=== PATIENT | male | born 1955 | race Caucasian/White ===

== ENCOUNTER 2019-12-31 16:26 | Observation (INO) | payer BC, OTHER ==
[2019-12-31] MEDS ORDERED: ASPIRIN 81 MG CHEWABLE TABLET ONE (17:14)
[2019-12-31] MEDS ORDERED: NA CHLORIDE 0.9% 1,000 ML ONE (17:15)
--- NOTE | 2019-12-31 17:21 | ER ---
Nurse's Notes [facility] Name: Theron Murrell Age: 64 yrs Sex: Male : 1955 Arrival Date: 12/31/2019 Time: 16:30 Bed 17 Private MD: Nikolai Shanks V Diagnosis: Chest pain, unspecified;Essential (primary) hypertension Presentation: 12/30 16:39 Chief complaint: Patient states: midsternal CP that started this morning, mild SOB as sv well. Denies n/v. Coronavirus screen: Proceed with normal triage. Patient denies a cough. Patient denies shortness of breath or difficulty breathing. Patient denies measured and/or subjective temperature greater than 100.4F prior to today's visit. Patient denies travel on a cruise ship or to a country the [facility] currently lists as an affected area. Patient denies contact with known and/or suspected case of COVID-19. Ebola Screen: No symptoms or risks identified at this time. Risk Assessment: Do you want to hurt yourself or someone else? Patient reports no desire to harm self or others. Onset of symptoms was December 31, 2019. 16:39 Method Of Arrival: Ambulatory sv 16:39 Acuity: EDOUARD 3 sv 16:40 Initial Sepsis Screen: Does the patient meet any 2 criteria? RR > 20 per min. No. sv Patient's initial sepsis screen is negative. Does the patient have a suspected source of infection? No. Patient's initial sepsis screen is negative. Triage Assessment: 17:07 General: Appears in no apparent distress. uncomfortable, obese, Behavior is bp cooperative, appropriate for age, anxious. Pain: Complains of pain in chest. EENT: No deficits noted. Neuro: No deficits noted. Cardiovascular: Reports chest pain. Respiratory: No deficits noted. GI: No signs and/or symptoms were reported involving the gastrointestinal system. : No signs and/or symptoms were reported regarding the genitourinary system. Derm: No deficits noted. Musculoskeletal: No deficits noted. Historical: - Allergies: 16:40 Sulfa (Sulfonamide Antibiotics); sv 16:40 Codeine; sv - PMHx: 16:40 Bronchitis; Gout; Hypothyroidism; Kidney stones; sv - PSHx: 16:40 kidney stones removed; sv - Immunization history:: Adult Immunizations up to date. - Social history:: Smoking status: Patient denies any tobacco usage or history of. - Family history:: not pertinent. Screenin:08 Abuse screen: Denies threats or abuse. Denies injuries from another. Nutritional bp screening: No deficits noted. Tuberculosis screening: No symptoms or risk factors identified. Fall Risk None identified. Assessment: 17:08 General: SEE TRIAGE NOTE. bp 18:00 Reassessment: ADMIT ON HOLD PENDING HOSPITALIST C/S. BED ASSIGNED. bp 18:39 Reassessment: PT CLEARED FOR ADMIT. REPORT TO SAJAN OWENS FOR RM 213. bp Vital Signs: 16:40 BP 140 / 93; Pulse 76; Resp 22; Temp 98.7; Pulse Ox 99% ; Weight 114.31 kg; Height 5 sv ft. 11 in. (180.34 cm); Pain 2/10; 18:06 BP 135 / 89; Pulse 69; Resp 18; Pulse Ox 96% ; bp 16:40 Body Mass Index 35.15 (114.31 kg, 180.34 cm) sv ED Course: 16:30 Patient arrived in ED. mr 16:30 Nikolai Shanks MD is Private Physician. mr 16:40 Triage completed. sv 16:40 Arm band placed on. sv 16:49 Juan Ha MD is Attending Physician. rea 16:54 Ray Francisco, GRACIELA is Primary Nurse. bp 17:08 Patient has correct armband on for positive identification. Bed in low position. Call bp light in reach. Side rails up X2. Pulse ox on. NIBP on. 17:17 Nikolai Shanks MD is Hospitalizing Provider. rea 17:25 Inserted saline lock: 20 gauge in right forearm, using aseptic technique. Blood bp collected. 18:14 No provider procedures requiring assistance completed. Patient admitted, IV remains in bp place. Patient maintains SpO2 saturation greater than 95% on room air. Administered Medications: 17:25 Drug: Aspirin Chewable Tablet 324 mg Route: PO; bp 18:39 Follow up: Response: No adverse reaction bp 17:25 Drug: NS 0.9% 1000 ml Route: IV; Rate: 1 bolus; Site: right forearm; bp 18:39 Follow up: IV Status: Completed infusion; IV Intake: 1000ml bp 17:30 Drug: Lopressor (metoprolol TARTRATE) 50 mg Route: PO; bp 18:38 Follow up: Response: No adverse reaction bp 17:30 Drug: Lovenox 100 mg Route: Sub-Q; Site: right lower abdomen; bp 18:38 Follow up: Response: No adverse reaction bp Intake: 18:39 IV: 1000ml; Total: 1000ml. bp Outcome: 17:20 Decision to Hospitalize by Provider. rea 18:14 Condition: stable bp 18:14 Instructed on the need for admit. 18:39 Admitted to Tele accompanied by tech, via stretcher, room 213, with chart, Report bp called to SAJAN OWENS 19:05 Patient left the ED. bp Signatures: Johana Royal, Juan Potter RN, MD MD cha Rivera, Mary mr Peltier, Brian, RN RN bp
--- NOTE | 2019-12-31 17:21 | EDPHYS ---
Physician Documentation [facility] Name: Theron Murrell Age: 64 yrs Sex: Male : 1955 Arrival Date: 12/31/2019 Time: 16:30 Bed 17 Private MD: Nikolai Shanks V ED Physician Juan Ha HPI: 12/30 17:15 This 64 yrs old Male presents to ER via Ambulatory with complaints of Chest rea Pain. 17:15 The patient or guardian reports chest pain that is located primarily in the substernal rea area. Onset: this morning. The pain does not radiate. Associated signs and symptoms: The patient has no apparent associated signs or symptoms. The chest pain is described as a heaviness, a pressure. Duration: The patient or guardian reports multiple episodes, that have now resolved. Modifying factors: The symptoms are alleviated by nothing. the symptoms are aggravated by nothing. Severity of pain: At its worst the pain was mild moderate in the emergency department the pain has improved markedly. The patient has experienced a previous episode, approximately 2 years ago. Historical: - Allergies: 16:40 Sulfa (Sulfonamide Antibiotics); sv 16:40 Codeine; sv - PMHx: 16:40 Bronchitis; Gout; Hypothyroidism; Kidney stones; sv - PSHx: 16:40 kidney stones removed; sv - Immunization history:: Adult Immunizations up to date. - Social history:: Smoking status: Patient denies any tobacco usage or history of. - Family history:: not pertinent. ROS: 17:15 Constitutional: Negative for fever, chills, and weight loss, Eyes: Negative for injury, rea pain, redness, and discharge, ENT: Negative for injury, pain, and discharge, Neck: Negative for injury, pain, and swelling, Respiratory: Negative for shortness of breath, cough, wheezing, and pleuritic chest pain, Abdomen/GI: Negative for abdominal pain, nausea, vomiting, diarrhea, and constipation, Back: Negative for injury and pain, : Negative for injury, bleeding, discharge, and swelling, MS/Extremity: Negative for injury and deformity, Skin: Negative for injury, rash, and discoloration, Neuro: Negative for headache, weakness, numbness, tingling, and seizure, Psych: Negative for depression, anxiety, suicide ideation, homicidal ideation, and hallucinations, Allergy/Immunology: Negative for hives, rash, and allergies, Endocrine: Negative for neck swelling, polydipsia, polyuria, polyphagia, and marked weight changes, Hematologic/Lymphatic: Negative for swollen nodes, abnormal bleeding, and unusual bruising. 17:15 Cardiovascular: Positive for chest pain, of the chest. Exam: 17:15 Constitutional: This is a well developed, well nourished patient who is awake, alert, rea and in no acute distress. Head/Face: Normocephalic, atraumatic. Eyes: Pupils equal round and reactive to light, extra-ocular motions intact. Lids and lashes normal. Conjunctiva and sclera are non-icteric and not injected. Cornea within normal limits. Periorbital areas with no swelling, redness, or edema. ENT: Nares patent. No nasal discharge, no septal abnormalities noted. Tympanic membranes are normal and external auditory canals are clear. Oropharynx with no redness, swelling, or masses, exudates, or evidence of obstruction, uvula midline. Mucous membranes moist. Neck: Trachea midline, no thyromegaly or masses palpated, and no cervical lymphadenopathy. Supple, full range of motion without nuchal rigidity, or vertebral point tenderness. No Meningismus. Chest/axilla: Normal chest wall appearance and motion. Nontender with no deformity. No lesions are appreciated. Cardiovascular: Regular rate and rhythm with a normal S1 and S2. No gallops, murmurs, or rubs. Normal PMI, no JVD. No pulse deficits. Respiratory: Lungs have equal breath sounds bilaterally, clear to auscultation and percussion. No rales, rhonchi or wheezes noted. No increased work of breathing, no retractions or nasal flaring. Abdomen/GI: Soft, non-tender, with normal bowel sounds. No distension or tympany. No guarding or rebound. No evidence of tenderness throughout. Back: No spinal tenderness. No costovertebral tenderness. Full range of motion. Male : Normal genitalia with no discharge or lesions. Skin: Warm, dry with normal turgor. Normal color with no rashes, no lesions, and no evidence of cellulitis. MS/ Extremity: Pulses equal, no cyanosis. Neurovascular intact. Full, normal range of motion. Neuro: Awake and alert, GCS 15, oriented to person, place, time, and situation. Cranial nerves II-XII grossly intact. Motor strength 5/5 in all extremities. Sensory grossly intact. Cerebellar exam normal. Normal gait. Psych: Awake, alert, with orientation to person, place and time. Behavior, mood, and affect are within normal limits. 17:36 ECG was reviewed by the Attending Physician. [facility] Vital Signs: 16:40 BP 140 / 93; Pulse 76; Resp 22; Temp 98.7; Pulse Ox 99% ; Weight 114.31 kg; Height 5 sv ft. 11 in. (180.34 cm); Pain 2/10; 18:06 BP 135 / 89; Pulse 69; Resp 18; Pulse Ox 96% ; bp 16:40 Body Mass Index 35.15 (114.31 kg, 180.34 cm) sv MDM: 16:49 Patient medically screened. [facility] 17:17 Data reviewed: vital signs, nurses notes, lab test result(s), EKG, radiologic studies, [facility] plain films. 12/30 16:50 Order name: Basic Metabolic Panel; Complete Time: 18:12 [facility] 12/30 16:50 Order name: CBC with Diff; Complete Time: 18:12 [facility] 12/30 16:50 Order name: LFT's; Complete Time: 18:12 [facility] 12/30 16:50 Order name: Magnesium; Complete Time: 18:12 [facility] 12/30 16:50 Order name: NT PRO-BNP; Complete Time: 18:12 [facility] 12/30 16:50 Order name: Troponin (emerg Dept Use Only); Complete Time: 18:12 [facility] 12/30 16:41 Order name: EKG; Complete Time: 16:42 12/30 16:50 Order name: XRAY Chest (1 view) [facility] 12/30 17:25 Order name: CONS Physician Consult [facility] 12/30 18:58 Order name: RAD [facility] 12/30 16:41 Order name: EKG - Nurse/Tech; Complete Time: 16:41 12/30 16:50 Order name: Cardiac monitoring; Complete Time: 17:24 [facility] 12/30 16:50 Order name: IV Saline Lock; Complete Time: 17:24 [facility] 12/30 16:50 Order name: Labs collected and sent; Complete Time: 17:24 [facility] 12/30 16:50 Order name: O2 Per Protocol; Complete Time: 17:06 [facility] 12/30 16:50 Order name: O2 Sat Monitoring; Complete Time: 17:06 [facility] EC:36 Rate is 75 beats/min. Rhythm is regular. QRS [place] is Normal. [place] interval is normal. QRS rea interval is normal. QT interval is normal. No Q waves. T waves are Normal. No ST changes noted. Clinical impression: Normal ECG and No evidence of ischemia. Interpreted by me. Reviewed by me. Administered Medications: 17:25 Drug: Aspirin Chewable Tablet 324 mg Route: PO; bp 18:39 Follow up: Response: No adverse reaction bp 17:25 Drug: NS 0.9% 1000 ml Route: IV; Rate: 1 bolus; Site: right forearm; bp 18:39 Follow up: IV Status: Completed infusion; IV Intake: 1000ml bp 17:30 Drug: Lopressor (metoprolol TARTRATE) 50 mg Route: PO; bp 18:38 Follow up: Response: No adverse reaction bp 17:30 Drug: Lovenox 100 mg Route: Sub-Q; Site: right lower abdomen; bp 18:38 Follow up: Response: No adverse reaction bp Disposition: 12/31/19 17:20 Hospitalization ordered by Nikolai Shanks for Observation. Preliminary diagnosis are Chest pain, unspecified, Essential (primary) hypertension. - Bed requested for Telemetry/MedSurg (observation). - Status is Observation. bp - Condition is Stable. - Problem is new. - Symptoms have improved. Signatures: Dispatcher [employer] EDMS Marcella Enriquez RN RN kl Verde, Stephanie, RN RN sv Anderson, Corey, MD MD cha Peltier, Brian, RN RN bp Corrections: (The following items were deleted from the chart) 17:52 17:20 Hospitalization Ordered by Nikolai Shanks MD for Observation. Preliminary diagnosis kl is Chest pain, unspecified; Essential (primary) hypertension. Bed requested for Telemetry/MedSurg (observation). Status is Observation. Condition is Stable. Problem is new. Symptoms have improved. [facility] 19:05 17:52 12/31/2019 17:20 Hospitalization Ordered by Nikolai Shanks MD for Observation. bp Preliminary diagnosis is Chest pain, unspecified; Essential (primary) hypertension. Bed requested for Telemetry/MedSurg (observation). Status is Observation. Condition is Stable. Problem is new. Symptoms have improved. kl
[2019-12-31 17:46] LABS: Absolute Lymphocytes (CBC) 2.6 K/uL (0.7-4.9); Basophils % 1.3 % (0-1.3); Hematocrit 45.2 % (39.6-49.0); Lymphocytes % 23.1 % (15.3-44.8); MPV 7.3 fL (7.6-11.3); RBC Red Blood Cell Count 5.34 M/uL (4.33-5.43)
[2019-12-31 18:04] LABS: ALT/SGPT 58 U/L (12-78); AST/SGOT 26 U/L (15-37); Albumin 3.5 g/dL (3.4-5.0); Alkaline Phosphatase 84 U/L (45-117); BUN Blood Urea Nitrogen 26 mg/dL (7-18); Bicarbonate 22 mmol/L (21-32); Bilirubin Direct 0.1 mg/dL (0-0.2); Bilirubin Total 0.4 mg/dL (0.2-1.0); Glucose Level 97 mg/dL (74-106); Magnesium 2.3 mg/dL (1.8-2.4); NT PRO-BNP 38 pg/mL (<125); Potassium 4.1 mmol/L (3.5-5.1); Sodium Level 141 mmol/L (136-145); Troponin (Emerg Dept Use Only) < 0.02 ng/mL (0.0-0.045)
[2019-12-31] MEDS ORDERED: ENOXAPARIN 100 MG/ML SYR SQ ONE (18:14)
[2019-12-31] MEDS ORDERED: METOPROLOL TAR 50 MG TAB ONE (18:14)
--- OUTSIDE RECORDS SUMMARY | 2019-12-31 18:19 | XMS REPORT | Continuity of Care Document ---
:1955 Author Organization [facility] t Address [address] [place] [address] Care Team Providers Name Role Phone Radiology Attending Clinician Unavailable Pob1, Care Clinic Attending Clinician Unavailable Problems This patient has no known problems. Allergies, Adverse Reactions, Alerts This patient has no known allergies or adverse reactions. Medications This patient has no known medications. Procedures This patient has no known procedures. Encounters Start End Encounter Admission Attending Care Care Encounter Source Date/Time Date/Time Type Type Clinicians Facility Department ID 2019-11-16 2019-11-16 [facility] [id number] 12:09:00 23:59:00 [facility] [id number] [facility] [id number] 2019-11-08 2019-11-08 Urgent Pob1, Acute [facility] [id number] 09:32:56 12:09:26 [place] [id number] [place] [id number] [facility] [phone] [address] One Results This patient has no known results.
--- OUTSIDE RECORDS SUMMARY | 2019-12-31 18:19 | XMS REPORT | Summary of Care ---
:1955 Author Organization [facility] Address [address] [place] [address] Care Team Providers Name Role Phone Dimitris Primary Care Provider Reason for Visit Reason Comments LAB WORK Encounter Details Date Type Department Care Team Description 11/08/2019 Trade Sales Assistant Visit [facility] Levi Law MD [address] [facility] [address] [place] [address] Encounter for long-term (current) use of antiplatelets/antithrombotics (Primary Dx); Professional Office Pob, Adc Lab Main Ureteral sludge Building Phlebotomy Lab Professional Office Building [address] [place] [address] , [address] [place] [address] Allergies Active Allergy Reactions Severity Noted Date Comments Hydrocodone Itching, Nausea 11/20/2013 When given H ydrocodone and/or Vomiting, in 03/14, david her's Swelling throat started feeling funny. Possible swelling and it demetrice. Sulfa (Sulfonamide Nausea and/or 11/20/2013 Antibiotics) Vomiting documented as of this encounter (statuses as of 11/08/2019) Medications Medication Sig Dispensed Refills Start Date End Date Status allopurinol (ZYLOPRIM) Take 100 mg by 0 10/13/2013 Active 100 mg tablet mouth daily. esomeprazole (NEXIUM) 40 TK 1 C PO ONCE A 1 01/17/20 16 Active mg capsule DAY. irbesartan 300 mg tablet Take 300 mg by 1 10/06/2018 Active mouth daily. levothyroxine 50 mcg Take 50 mcg by 0 10/06/2018 Active tablet mouth daily. traMADOL 50 mg tablet Take 1 tablet by 40 tablet 0 12/13/2018 Active mouth every 6 (six) hours as needed for Pain (scale 4-6) or Pain (scale 7-10). carvedilol 6.25 mg Take 6.25 mg by 0 Active tablet mouth 2 (two) times daily with meals. Pitavastatin (LIVALO) 2 Take by mouth 0 Active mg Tab daily. Levothyroxine 75 mcg TK 1 T PO QAM 1 12/06/2018 Active capsule OES Diclofenac Sodium Apply to 100 g 1 03/07/2019 A ctive (VOLTAREN) 1 % area(s) 4 (four) gelIndications: S/P TKR times daily. (total knee replacement), right documented as of this encounter (statuses as of 11/08/2019) Active Problems Problem Noted Date Essential hypertension 12/04/2018 Primary osteoarthritis of right knee 11/27/2018 Overview: Added automatically from request for erika marshall [id number] Obesity (BMI 30-39.9) 03/06/2018 Total knee replacement status 03/06/2018 Knee pain 11/03/2016 documented as of this encounter (statuses as of 11/08/2019) Immunizations Name Administration Dates Next Due Tdap 05/01/2018 documented as of this encounter Social History Tobacco Use Types Packs/Day Years Used Date Never Smoker Smokeless Tobacco: Never Used Alcohol Use Drinks/Week oz/Week Comments Yes Occasional Drink er Sex Assigned at Date Recorded Not on file Job Start Date Occupation Industry Not on file Not on file Not on file Travel History Travel Start Travel End No recent travel history available. COVID-19 Exposure Response Date Recorded In the last month, have you been in contact with No / Unsure 11/08/2019 9:01 AM CDT someone who was confirmed or suspected to have Coronavirus / COVID-19? documented as of this encounter Last Filed Vital Signs Not on filedocumented in this encounter Plan of Treatment Date Type Specialty Care Team Description 01/16/2020 Office Visit Cardiology Bárbara Sanchez M D [address] [place] [address] 77 [phone] Name Type Priority Associated Diagnoses Date/Ti me CBC WITH DIFF LAB Routine Encounter for long-term 11:20 AM (current) use of CDT antiplatelets/antithrom botics Ureteral sludge SEDIMENTATION RATE LAB Routine Encounter for long-ter m 11/08/2019 11:20 AM (current) use of CDT antiplatelets/antithrom botics Ureteral sludge BASIC METABOLIC PANEL (NA, LAB Routine Encounter for long-term 11/08/2019 11:20 AM K, CL, CO2, GLUCOSE, BUN, (current) use o f CDT CREATININE, CA) antiplatelets/antithrom botics Ureteral sludge C-REACTIVE PROTEIN LAB Routine Encounter for long-ter m 11/08/2019 11:20 AM (current) use of CDT antiplatelets/antithrom botics Ureteral sludge CBC WITH DIFFERENTIAL LAB Routine Encounter for long- term 11/08/2019 11:20 AM (current) use of CDT antiplatelets/antithrom botics Ureteral sludge Name Type Priority Associated Diagnoses Order S chedule CBC WITH DIFF LAB Routine Encounter for long-term Exp ected: 11/08/2019, (current) use of Expires: antiplatelets/antithrom botics Ureteral sludge SEDIMENTATION RATE LAB Routine Encounter for long-ter m Expected: 11/08/2019, (current) use of Expires: antiplatelets/antithrom botics Ureteral sludge BASIC METABOLIC PANEL (NA, LAB Routine Encounter for long-term Expected: 11/08/2019, K, CL, CO2, GLUCOSE, BUN, (current) use o f Expires: 11/07/2020 CREATININE, CA) antiplatelets/antithrom botics Ureteral sludge C-REACTIVE PROTEIN LAB Routine Encounter for long-ter m Expected: 11/08/2019, (current) use of Expires: antiplatelets/antithrom botics Ureteral sludge Health Maintenance Due Date Last Done Comments HEPATITIS C (HCV) SCREEN 1955 COLONOSCOPY 2004 Zoster Recombinant Vaccine (SHINGRIX) (1 of 2) 2004 Medicare Wellness Visit 2019 PNEUMOCOCCAL VACCINES 65+ (1 of 2 - PCV13) 2019 INFLUENZA VACCINE (Season Ended) 2020 DTaP,Tdap,and Td Vaccines (2 - Td) 05/01/2028 05/01/2018 documented as of this encounter Implants Implanted Type Area Airline Captain Device Shelf Model / Identifier Expiration Serial / Lot Date Bone Cement Injector 1x40 High Viscosity Pinky Ref#[id number] - Sna CEMENT Right: Biomet 06/26/2022 [id number] / Implanted: Qty: 1 on 12/04/2018 by Markel Cervantes MD at [facility] Knee N A / [id number] Primary Tibial Modular Tray KNEE Left: Biomet [id number] / Implanted: Qty: 1 on 03/06/2018 by Markel Cervantes MD at [facility] Knee 8 [id number] / [id number] Cr Tibial Bearing KNEE Left: [employer]omet 09/30/2022 E [id number] / Implanted: Qty: 1 on 03/06/2018 by Markel Cervantes MD at [facility] Knee 9 [id number] / [id number] Tibial Bearing 10 X 79/83 Mm Biomet Ref#[id number] - Sna KNEE Right : [employer]omet 02/17/2023 [id number] / Implanted: Qty: 1 on 12/04/2018 by Markel Cervantes MD at [facility] Knee N A / [id number] Primary Tibial Modular Tray KNEE Right: [employer]omet [id number] / Implanted: Qty: 1 on 12/04/2018 by Markel Cervantes MD at [facility] Knee N A / [id number] Cr Femoral - Right KNEE Right: [employer] 08/10/2028 [id number] / Implanted: Qty: 1 on 12/04/2018 by Markel Cervantes MD at [facility] Knee N A / [id number] Cr Femoral Left Knee Hinge Left: [employer] 10/17/2027 [id number] / Implanted: Qty: 1 on 03/06/2018 by Markel Cervantes MD at [facility] Knee 8 [id number] / [id number] Series A Standard Patella PATELLA Left: [employer] 09/26 [id number] / Implanted: Qty: 1 on 03/06/2018 by Markel Cervantes MD at [facility] Knee 2 [id number] / [id number] Component Patellar Pegx3 37mm Standard 10mm Thk [employer]omet Ref#[id number] - Sna PATELLA Right: [employer] 09/28/2022 [id number] / Implanted: Qty: 1 on 12/04/2018 by Markel Cervantes MD at [facility] Knee N A / [id number] Self-Tapping Bone Screw SCREW Left: Biomet 2027 [id number] / Implanted: Qty: 2 on 03/06/2018 by Markel Cervantes MD at [facility] Knee 9 [id number] / [id number] Self-Tapping Bone Screw SCREW Left: Biomet 2027 [id number] / Implanted: Qty: 1 on 03/06/2018 by Markel Cervantes MD at [facility] Knee 1 [id number] / [id number] Self-Tapping Bone Screw SCREW Left: Biomet 2027 [id number] / Implanted: Qty: 1 on 03/06/2018 by Markel Cervantes MD at [facility] Knee 2 [id number] / [id number] Screw Bone 6.5x30mm Lp St [employer] #[id number] - Sna SCREW Right: Bio met 09/04/2028 [id number] / Implanted: Qty: 2 on 12/04/2018 by Markel Cervantes MD at [facility] Knee N A / [id number] Screw Bone 6.5x40mm Lp St [employer] #[id number] - Sna SCREW Right: Bio met 08/05/2028 [id number] / Implanted: Qty: 1 on 12/04/2018 by Markel Cervantes MD at [facility] Knee N A / [id number] Screw Bone 6.5x40mm Lp St [employer] #[id number] - Sna SCREW Right: Bio met 10/02/2025 [id number] / Implanted: Qty: 1 on 12/04/2018 by Markel Cervantes MD at [facility] Knee N A / [id number] Modular Finned Stem Stem Left: [employer] 01/29/2028 [id number] / Implanted: Qty: 1 on 03/06/2018 by Markel Cervantes MD at [facility] Knee 1 [id number] / [id number] Stem Finned Primary 40mm [employer] #[id number] - Sna Stem Right: Biom et 10/03/2028 [id number] / Implanted: Qty: 1 on 12/04/2018 by Markel Cervantes MD at [facility] Knee N A / [id number] documented as of this encounter Results Not on filedocumented in this encounter Visit Diagnoses Diagnosis Encounter for long-term (current) use of antiplatelets/antithrombotics - Primary Ureteral sludge Unspecified disorder of kidney and urete r documented in this encounter Insurance Payer Benefit Plan / Subscriber ID Effective Dates Phone Addre ss Type Group [place] [id number] 2012-Present PPO/POS 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
--- OUTSIDE RECORDS SUMMARY | 2019-12-31 18:19 | XMS REPORT | Summary of Care ---
:1955 Author Organization [facility] Address [address] [place] [address] Care Team Providers Name Role Phone Dimitris Primary Care Provider Reason for Visit Reason Comments Nausea Body Aches Headache Fatigue Encounter Details Date Type Department Care Team Description 11/08/2019 Urgent Care [facility] Family Radiology [address] [place] [id number] Acute nonintractable headache, unspecifi ed headache type (Primary Dx); [place] [id number], Acute Care Clinic Bilateral impacted cerumen [address] [place] [phone] Allergies Active Allergy Reactions Severity Noted Date [...] 100 mg tablet mouth daily. esomeprazole (NEXIUM) TK 1 C PO ONCE 1 01/17/2016 Active 40 mg capsule A DAY. irbesartan 300 mg Take 300 mg by 1 10/06/2018 Active tablet mouth daily. levothyroxine 50 mcg Take 50 mcg by 0 10/06/2018 Active tablet mouth daily. traMADOL 50 mg tablet Take 1 tablet 40 tablet 0 12/13/2018 Active by mouth every 6 (six) hours as needed [...] A ctive (VOLTAREN) 1 % area(s) 4 gelIndications: S/P TKR (four) times (total knee daily. replacement), right carbamide peroxide 6.[address] 5 Drops 3 mL 0 11/08/2019 Active % otic in both ears 2 solutionIndications: (two) times Bilateral impacted daily for 5 cerumen days. documented as of this encounter (statuses as of 11/08/2019) Active Problems Problem Noted Date Essential hypertension 12/04/2018 Primary osteoarthritis of right knee 11/27/2018 Overview: Added automatically from request for erika marshall [id number] Obesity (BMI 30-39.9) 03/06/2018 Total knee replacement [...] of this encounter Last Filed Vital Signs Vital Sign Reading Time Taken Comments Blood Pressure 125/81 11/08/2019 9:43 AM CDT Pulse 76 11/08/2019 9:43 AM CDT Temperature 36.4 C (97.6 F) 11/08/2019 9:43 AM CDT Respiratory Rate 18 11/08/2019 9:43 AM CDT Oxygen Saturation 98% 11/08/2019 9:43 AM CDT Inhaled Oxygen Concentration - - Weight 114.8 kg (253 lb) 11/08/2019 9:43 AM CDT Height 180.3 cm (5' 11") 11/08/2019 9:43 AM CDT Body Mass Index 35.29 11/08/2019 9:43 AM CDT documented in this encounter Patient Instructions Patient InstructionsSarahMarisol andino [place] - 11/08/2019 9:40 AM CDT Patient Education Self-Care for Headaches Most headaches aren't serious and can be relieved with self-care. But some headaches may be a sign of another health problem like eye trouble or high blood pressure. To find the best treatment, learn what kind of headaches you get. For tension headaches, self-care will usually help. To treat migraines, ask yourhealthcare providerfor advice. It is also possible to get both tension and migraine headaches. Self-care involves relieving the pain and avoiding headache triggers if you can. Ways to reduce pain and tension Try these steps: Apply a cold compress or ice pack to the pain site. Drink fluids. If nausea makes it hard to drink, try sucking on ice. Rest. Protect yourself from bright light and loud noises. Calm your emotions by imagining a peaceful scene. Massage tight neck, shoulder, and head muscles. To relax muscles, soak in a hot bath or use a hot shower. Use medicines Aspirin or other yvaf-oqp-[id number] pain medicines, such as ibuprofen and acetaminophen, can relieve headache. Remember: Never give aspirin to anyone 18 years old or younger because of the risk of developing Adriana syndrome. Use pain medicines only when needed. Certain prescription medicines, if taken toooften, can lead to rebound headaches. Check with your healthcare provider or pharmacist about your medicines. Track your headaches Keeping a headache diary can help you and yourhealthcare provideridentify what's causing your headaches: Note when each headache happens. Identify your activities and the foods you've eaten6 to 8hours before the headache began. Look for any trends or "triggers." Signs of tension headache Any of the following can be signs: Dull pain or feeling of pressure in a tight band around your head Pain in your neck or shoulders Headache without a definite beginning or end Headache after an activity such as driving or working on a computer Signs of migraine Any of the following can be signs: Throbbing pain on one or both sides of your head Nausea or vomiting Extreme sensitivity to light, sound, and smells Bright spots, flashes, or other visual changes Pain or nausea so severe that you can't continue your daily activities Call yourhealthcare provider If you have any of the following symptoms, contact your healthcare provider: A headache that lingers after a recent injury or bump to the head. A fever with a stiff neck or pain when you bend your head toward your chest. A headache along with slurred speech, changes in your vision, or numbness or weakness in your arms or legs. A headache for longer than3 days. Frequent headaches,especially in the morning. Headaches with seizures Seek immediate medical attention if you have a headache that you would call "the worst headache you have ever had." Yuni newton reviewed this educational content on 08/25/201719996798-7531 The [employer]. [address] [place] [address]. All rights reserved. This information is not intended as a substitute for professional medical care. Always follow your healthcare professional's instructions. Patient Education Impacted Earwax Inner ear structures including ear canal and eardrum. Impacted earwax is a buildup of the natural wax in the ear. Impacted earwax is very common. It can cause symptoms such as hearing loss. It can also make it hard for a healthcare provider to check your ear. Understanding earwax Tiny glands in your ear make substances that combine with skin cells to form earwax. Earwax helps protect your ear canal from water, dirt, infection, and injury. Over time, earwax travels from theinner part of your ear canal to the entrance of the canal. Then it falls away naturally. But in somecases, it cant travel to the entrance of the canal. This may be because of a health condition or objects put in the ear. With age, earwax tends to become harder and less fluid. Older adults are morelikely to have problems with earwax buildup. What causes impacted earwax? Earwax can build up because of many health conditions. Some cause a physical blockage. Others cause too much earwax to be made. Health conditions that can cause earwax buildup include: Bony blockage in the ear (osteoma or exostoses) Infections, such as an outer ear infection (external otitis) Skin disease, such as eczema Autoimmune diseases, such as lupus A narrowed ear canal from , chronic inflammation, or injury Too much earwax because of injury Too much earwax because of water in the ear canal Putting objects in the ear again and again can also cause impacted earwax. For example, putting cotton swabs in the ear may push the wax deeper into the ear. Over time, this may cause blockage. Hearingaids, swimming plugs, and swim molds can also cause this problem when used again and again. In some cases, the cause of impacted earwax is not known. Symptoms of impacted earwax Excess earwax often does not cause any symptoms, unless there is a large amount of buildup. Then it may cause symptoms such as: Hearing loss Earache Sense of ear fullness Itching in the ear Odor from the ear Ear drainage Dizziness Ringing in the ears Cough Treatment for impacted earwax If you dont have symptoms, you may not need treatment. Often the earwax goes away on its own withtime. If you have symptoms, you may have 1 or more treatments such as: Ear drops to soften the earwax. This helps it leave the ear over time. Rinsing the ear canal with water. This is done in a healthcare providers office. Removing the earwax with small tools. This is also done in a providers office. In rare cases, some treatments for earwax removal may cause complications such as: Outer ear infection Earache Short-term hearing loss Dizziness Water trapped in the ear canal Hole in the eardrum Ringing in the ears Bleeding from the ear Talk with your healthcare provider about which risks apply most to you. Healthcare providers don't advise using ear candles or ear vacuum kits. These methods are not shown to work and may cause problems. Preventing impacted earwax You may not be able to prevent impacted earwax if you have a health condition that causes it, such as eczema. In other cases, you may be able to prevent earwax buildup by: Using ear drops once a week Having a regular ear cleaning about every 6 months Not using cotton swabs in the ear When to call the healthcare provider Call your healthcare provider right away if you have: Symptoms of impacted earwax Severe symptoms after earwax removal, such as bleeding or severe ear pain Yuni last reviewed this educational content on 02/25/201919992542-6127 [employer], [employer]. [address] [place] [address], [place] [address]. All rights reserved. This information is not intended as a substitute for professional medical care. Always follow your healthcare professional's instructions. documented in this encounter Progress Notes Marisol Lea FNP - 11/08/2019 9:40 AM CDT Cc: Chief Complaint Patient presents with Nausea Body Aches Headache Fatigue Hema Murrell is a 64 year old male. Last week he started having headaches, with some nausea and fatigue on an off. He has had an encounter with his PCP and an MRI is ordered for today at 11am. He has given some abortive medication and isonly here for covid test. Headache Pain location: Generalized Quality: Dull Radiates to: Does not radiate Severity currently: 4/10 Severity at highest: 5/10 Onset quality: Gradual Duration: 1 week Timing: Intermittent Progression: Unchanged Chronicity: Recurrent Similar to prior headaches: no Context: activity Relieved by: Nothing Worsened by: Nothing Ineffective treatments: Prescription medications Associated symptoms: fatigue, myalgias and nausea Associated symptoms: no cough, no fever and no weakness Fatigue: Severity: Moderate Timing: Intermittent Progression: Unchanged Myalgias: Location: Generalized Quality: Aching Severity: Mild Onset quality: Gradual Duration: 1 week Progression: Unchanged Nausea: Severity: Mild Onset quality: Gradual Timing: Intermittent Progression: Improving Risk factors: lifestyle not sedentary Allergies Hema is allergic to hydrocodone and sulfa (sulfonamide antibiotics). Medications Outpatient Medications Prior to Visit Medication Sig Dispense Refill Diclofenac Sodium (VOLTAREN) 1 % gel Apply to area(s) 4 (four) times daily. 100 g 1 Levothyroxine 75 mcg capsule TK 1 T PO QAM OES 1 carvedilol 6.25 mg tablet Take 6.25 mg by mouth 2 (two) times daily with meals. Pitavastatin (LIVALO) 2 mg Tab Take by mouth daily. traMADOL 50 mg tablet Take 1 tablet by mouth every 6 (six) hours as needed for Pain (scale 4-6) or Pain (scale 7-10). 40 tablet 0 irbesartan 300 mg tablet Take 300 mg by mouth daily. 1 levothyroxine 50 mcg tablet Take 50 mcg by mouth daily. esomeprazole (NEXIUM) 40 mg capsule TK 1 C PO ONCE A DAY. 1 allopurinol (ZYLOPRIM) 100 mg tablet Take 100 mg by mouth daily. No facility-administered medications prior to visit. Histories Past Medical History: Diagnosis Date Esophageal reflux Gout Nephrolithiasis Obesity MARTHA (obstructive sleep apnea) not compliant with cpap Thyroid disease Past Surgical History: Procedure Laterality Date HAND TENDON REPAIR Left REMOVAL OF KIDNEY STONE TOTAL KNEE ARTHROPLASTY Left 03/06/2018 Surgeon: Markel Henao MD; [place] [facility] [place] Right 12/04/2018 Surgeon: Markel Henao MD; [place] [facility] [place] Social History Socioeconomic History Marital status: Spouse name: Not on file Number of children: Not on file Years of education: Not on file Highest education level: Not on file Occupational History 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 [employer] Comment: geronimo jaime Social Needs Financial resource strain: Not on file Food insecurity: Worry: Not on file Inability: Not on file Transportation needs: Medical: Not on file Non-medical: Not on file Tobacco Use Smoking status: Never Smoker Smokeless tobacco: Never Used Substance and Sexual Activity Alcohol use: Yes Comment: Occasional Drinker Drug use: No Sexual activity: Not on file Lifestyle Physical activity: Days per week: Not on file Minutes per session: Not on file Stress: Not on file Relationships Social connections: Talks on phone: Not on file Gets together: Not on file Attends islam service: Not on file Active member of club or organization: Not on file Attends meetings of clubs or organizations: Not on file Relationship status: Not on file Intimate partner violence: Fear of current or ex partner: Not on file Emotionally abused: Not on file Physically abused: Not on file Forced sexual activity: Not on file Other Topics Concern Not on file Social History Narrative Not on file Family History Problem Relation Age of Onset Cancer Mother Cancer Father Review of Systems Constitutional: Positive for fatigue. Negative for chills and fever. Respiratory: Negative. Negative for cough, chest tightness, shortness of breath and wheezing. Cardiovascular: Negative. Negative for chest pain and palpitations. Gastrointestinal: Positive for nausea. Musculoskeletal: Positive for myalgias. Neurological: Positive for headaches. Negative for syncope, weakness and light-headedness. Psychiatric/Behavioral: Negative. Endocrine: Endocrine negative Vital Signs BP 125/81 (BP Location: Right arm, Patient Position: Sitting, BP CUFF SIZE: Adult XL) | Pulse 76 |Temp 36.4 C (97.6 F) (Oral) | Resp 18 | Ht 5' 11" (1.803 m) | Wt 253 lb (114.8 kg) | SpO2 98% | BMI 35.29 kg/m Physical Exam Constitutional: He is oriented to person, place, and time. He appears well- developed. No distress. HENT: Head: Normocephalic. Right Ear: Hearing and external ear normal. Left Ear: Hearing and external ear normal. Nose: Nose normal. Right sinus exhibits no maxillary sinus tenderness and no frontal sinus tenderness. Left sinus exhibits no maxillary sinus tenderness and no frontal sinus tenderness. Mouth/Throat: Uvula is midline, oropharynx is clear and moist and mucous membranes are normal. No tonsillar exudate. Bilateral cerumen impaction Cardiovascular: Normal rate, regular rhythm, normal heart sounds and intact distal pulses. Exam reveals no gallop and no friction rub. No murmur heard. Pulmonary/Chest: Effort normal and breath sounds normal. No stridor. No respiratory distress. He hasno wheezes. He has no rales. He exhibits no tenderness. Abdominal: Soft. Bowel sounds are normal. Lymphadenopathy: Head (right side): No submental, no submandibular, no tonsillar, no preauricular and no posterior auricular adenopathy present. Head (left side): No submental, no submandibular, no tonsillar, no preauricular and no posterior auricular adenopathy present. He has no cervical adenopathy. Neurological: He is alert and oriented to person, place, and time. He has normal strength. No cranial nerve deficit or sensory deficit. He displays a negative Romberg sign. Gait normal. Skin: Skin is warm and dry. Capillary refill takes less than 2 seconds. Psychiatric: He has a normal mood and affect. Nursing note and vitals reviewed. Assessment/Plan 1. Headaches: MRI as ordered. Continue abortive medication started with PCP and get the MRI as ordered. Follow up with PCP as scheduled. covid test done, pending result, In the meantime, quarantine in place, treat symptoms with OTC meds, Tylenol as needed but no NSAIDs. Stay in quarantine until symptoms subsides, plus 3 days afterwards or until you hear otherwise. Follow up with your PCP as needed, and if with worsening of symptoms, any respiratory distress, go to the ER. 2. Cerumen impaction: debrox given for a few days, follow up with ENT who he usually sees for tinnitus as needed. 3. Nausea: declined intervention, states it has resolved. Plan of care, desired health behaviors, goals, and medication discussed with patient. Education resources provided and reviewed with AVS. Patient/guardian/family verbalized understanding & agrees to plan of care. This visit did not involve counseling and coordination that comprised more than 50% of the visit time. If applicable, the [place] [employer] database was accessed to review any controlled substance prescription claims data. The [employer] prescription claims data in [employer] was reviewed to assess patient compliance with the medication treatment plan. Brianne Krause RN - 11/08/2019 9:40 AM CDT Hema Murrell is a 64 year old male presents the to Covid clinic with the CC Chief Complaint Patient presents with Nausea Body Aches Headache Fatigue The patient stated " I have had these symptoms for a little while, and that's why Im suppose to be getting a MRI". "I have a MRI today but they want me to have that testing done before they will let medo the MRI". documented in this encounter Plan of Treatment Date Type Specialty Care Team Description 11/08/2019 Hospital Encounter Radiology Radiology Arrived [address] [place] [address] 01/16/2020 Office Visit Cardiology Bárbara Sanchez M D [address] [facility] [address] [place] [address] 15 Name Type Priority Associated Diagnoses Date/Ti me CORONAVIRUS COVID-19 LAB STAT Acute nonintractable 11/08/2019 9:37 AM TESTING headache, unspecified CDT headache type Name Type Priority Associated Diagnoses Order S chedule CORONAVIRUS COVID-19 LAB STAT Acute nonintractable Expected: TESTING headache, unspecified 2019, Expires: headache type 11/07/2020 Health Maintenance Due Date Last Done Comments HEPATITIS C (HCV) SCREEN 1955 COLONOSCOPY 2004 Zoster Recombinant Vaccine (SHINGRIX) (1 of 2) 2004 Medicare Wellness Visit 2019 PNEUMOCOCCAL VACCINES 65+ (1 of 2 - PCV13) 2019 INFLUENZA VACCINE (Season Ended) 2020 DTaP,Tdap,and Td Vaccines (2 - Td) 05/01/2028 05/01/2018 documented as of this encounter Implants Implanted Type Area Director Of Litigation Device Shelf Model / Identifier Expiration Serial / Lot Date Bone Cement Injector 1x40 High Viscosity Pinky Ref#[id number] - Sna CEMENT Right: Biomet 06/26/2022 [id number] / Implanted: Qty: 1 on 12/04/2018 by Markel Cervantes MD at [facility] Knee N A / [id number] Primary Tibial Modular Tray KNEE Left: [employer] [id number] / Implanted: Qty: 1 on 03/06/2018 by Markel Cervantes MD at [facility] Knee 8 [id number] / [id number] Cr Tibial Bearing KNEE Left: [employer]omet 09/30/2022 E [id number] / Implanted: Qty: 1 on 03/06/2018 by Markel Cervantes MD at [facility] Knee 9 [id number] / [id number] Tibial Bearing 10 X 79/83 Mm Biomet Ref#[id number] - Sna KNEE Right : [employer] 02/17/2023 [id number] / Implanted: Qty: 1 on 12/04/2018 by Markel Cervantes MD at [facility] Knee N A / [id number] Primary Tibial Modular Tray KNEE Right: Biomet [id number] / Implanted: Qty: 1 on 12/04/2018 by Markel Cervantes MD at [facility] Knee N A / [id number] Femoral - Right KNEE Right: [employer] 08/10/2028 [id number] / Implanted: Qty: 1 on 12/04/2018 by Markel Cervantes MD at [facility] Knee N A / [id number] Femoral Left Knee Hinge Left: [employer]omet 10/17/2027 [id number] / Implanted: Qty: 1 on 03/06/2018 by Markel Cervantes MD at [facility] Knee 8 [id number] / [id number] Series A Standard Patella PATELLA Left: [employer] 09/26 [id number] / Implanted: Qty: 1 on 03/06/2018 by Markel Cervantes MD at [facility] Knee 2 [id number] / [id number] Component Patellar Pegx3 37mm Standard 10mm Thk Bi[employer] Ref#[id number] - Sna PATELLA Right: [employer] 09/28/2022 [id number] / Implanted: Qty: 1 on 12/04/2018 by Markel Cervantes MD at [facility] Knee N A / [id number] Self-Tapping Bone Screw SCREW Left: Biomet 2027 [id number] / Implanted: Qty: 2 on 03/06/2018 by Markel Cervantes MD at [facility] Knee 9 [id number] / [id number] Self-Tapping Bone Screw SCREW Left: Biomet 2027 [id number] / Implanted: Qty: 1 on 03/06/2018 by Markel Cervantes MD at [facility] Knee 1 [id number] / [id number] Self-Tapping Bone Screw SCREW Left: Biomet 2027 [id number] / Implanted: Qty: 1 on 03/06/2018 by Markel Cervantes MD at [facility] Knee 2 [id number] / [id number] Screw Bone 6.5x30mm Lp St [employer] #[id number] - Sna SCREW Right: Bio [employer] 09/04/2028 [id number] / Implanted: Qty: 2 on 12/04/2018 by Markel Cervantes MD at [facility] Knee N A / [id number] Screw Bone 6.5x40mm Lp St [employer] #[id number] - Sna SCREW Right: Bio [employer] 08/05/2028 [id number] / Implanted: Qty: 1 on 12/04/2018 by Markel Cervantes MD at [facility] Knee N A / [id number] Screw Bone 6.5x40mm Lp St [employer] #[id number] - Sna SCREW Right: Bio [employer] 10/02/2025 [id number] / Implanted: Qty: 1 on 12/04/2018 by Markel Cervantes MD at [facility] Knee N A / [id number] Modular Finned Stem Stem Left: [employer] 01/29/2028 [id number] / Implanted: Qty: 1 on 03/06/2018 by Markel Cervantes MD at [facility] Knee 1 [id number] / [id number] Stem Finned Primary 40mm Bi[employer] #[id number] - Sna Stem Right: Biom et 10/03/2028 [id number] / Implanted: Qty: 1 on 12/04/2018 by Markel Cervantes MD at [facility] Knee N A / [id number] documented as of this encounter Results Not on filedocumented in this encounter Visit Diagnoses Diagnosis Acute nonintractable headache, unspecifi ed headache type - Primary Bilateral impacted cerumen Impacted cerumen documented in this encounter Insurance Payer Benefit Plan / Subscriber ID Effective Dates Phone Addre ss Type Group [facility] [id number] 2012-Present PPO/POS 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
--- OUTSIDE RECORDS SUMMARY | 2019-12-31 18:19 | XMS REPORT | Summary of Care ---
:1955 Author Organization [facility] - Health Address [address] [place] [address] Care Team Providers Name Role Phone Dimitris Primary Care Provider Encounter Details Date Type Department Care Team Description 11/08/2019 Orders Only [facility] Doctor Unassigned, No [address] [facility] [place] [address] [address] [place] [phone] Allergies Active Allergy Reactions Severity Noted Date [...] Added automatically from request for erika marshall [id number] Obesity (BMI 30-39.9) 03/06/2018 Total knee replacement [...] been in contact with No / Unsure 11/06/2019 11:43 AM CDT someone who was confirmed or suspected to have Coronavirus / COVID-19? documented as of this encounter Last Filed Vital Signs Not on filedocumented in this encounter Plan of Treatment Date Type Specialty Care Team Description 11/08/2019 Director Corporate Security Visit Phlebotomy Levi Law MD [address] [place] [address] [address] [place], [place] [phone] [facility] Main 11/08/2019 Appointment Radiology Radiology [address] [place] [address] 01/16/2020 Office Visit Cardiology Bárbara Sanchez M D [address] [place] [address] [address] [place], [place] [address] Health Maintenance Due Date Last Done Comments HEPATITIS C (HCV) SCREEN 1955 COLONOSCOPY 2004 Zoster Recombinant Vaccine (SHINGRIX) (1 of 2) 2004 Medicare Wellness Visit 2019 PNEUMOCOCCAL VACCINES 65+ (1 of 2 - PCV13) 2019 INFLUENZA VACCINE (Season Ended) 2020 DTaP,Tdap,and Td Vaccines (2 - Td) 05/01/2028 05/01/2018 documented as of this encounter Implants Implanted Type Area Firearms Inspector Device Shelf Model / Identifier Expiration Serial / Lot Date Bone Cement Injector 1x40 High Viscosity Pinky Ref#[id number] - Sna CEMENT Right: Biomet 06/26/2022 [id number] / Implanted: Qty: 1 on 12/04/2018 by Markel Cervantes MD at [facility] Knee N A / [id number] Primary Tibial Modular Tray KNEE Left: Biomet [id number] / Implanted: Qty: 1 on 03/06/2018 by Markel Cervantes MD at [facility] Knee 8 [id number] / [id number] Cr Tibial Bearing KNEE Left: Biomet 09/30/2022 [id number] / Implanted: Qty: 1 on 03/06/2018 by Markel Cervantes MD at [facility] Knee 9 [id number] / [id number] Tibial Bearing 10 X 79/83 Mm Biomet Ref#[id number] - Sna KNEE Right : Biomet 02/17/2023 [id number] / Implanted: Qty: 1 on 12/04/2018 by Markel Cervantes MD at [facility] Knee N A / [id number] Primary Tibial Modular Tray KNEE Right: Biomet [id number] / Implanted: Qty: 1 on 12/04/2018 by Markel Cervantes MD at [facility] Knee N A / [id number] Cr Femoral - Right KNEE Right: Biomet 08/10/2028 [id number] / Implanted: Qty: 1 on 12/04/2018 by Markel Cervantes MD at [facility] Knee N A / [id number] Femoral Left Knee Hinge Left: Biomet 10/17/2027 18 [id number] / Implanted: Qty: 1 on 03/06/2018 by Markel Cervantes MD at [facility] Knee 8 [id number] / [id number] Series A Standard Patella PATELLA Left: Biomet 09/26 [id number] / Implanted: Qty: 1 on 03/06/2018 by Markel Cervantes MD at [facility] Knee 2 [id number] / [id number] Component Patellar Pegx3 37mm Standard 10mm Thk Biomet Ref#1 [id number] - Sna PATELLA Right: Biomet 09/28/2022 [id number] / Implanted: Qty: 1 on 12/04/2018 by Markel Cervantes MD at [facility] Knee N A / [id number] Self-Tapping Bone Screw SCREW Left: Biomet 2027 [id number] / Implanted: Qty: 2 on 03/06/2018 by Markel Cervantes MD at [facility] Knee 9 37590 / [id number] Self-Tapping Bone Screw SCREW Left: Biomet 2027 [id number] / Implanted: Qty: 1 on 03/06/2018 by Markel Cervantes MD at [facility] Knee 1 71712 / [id number] Self-Tapping Bone Screw SCREW Left: Biomet 2027 [id number] / Implanted: Qty: 1 on 03/06/2018 by Markel Cervantes MD at [facility] Knee 2 93981 / [id number] Screw Bone 6.5x30mm Lp St Biomet #[id number] - Sna SCREW Right: Bio met 09/04/2028 [id number] / Implanted: Qty: 2 on 12/04/2018 by Markel Cervantes MD at [facility] Knee N A / [id number] Screw Bone 6.5x40mm Lp St Biomet #[id number] - Sna SCREW Right: Bio met 08/05/2028 [id number] / Implanted: Qty: 1 on 12/04/2018 by Markel Cervantes MD at [facility] Knee N A / [id number] Screw Bone 6.5x40mm Lp St Biomet #[id number] - Sna SCREW Right: Bio met 10/02/2025 [id number] / Implanted: Qty: 1 on 12/04/2018 by Markel Cervantes MD at [facility] Knee N A / [id number] Modular Finned Stem Stem Left: Biomet 01/29/2028 [id number] / Implanted: Qty: 1 on 03/06/2018 by Markel Cervantes MD at [facility] Knee 1 [id number] / [id number] Stem Finned Primary 40mm Biomet #[id number] - Sna Stem Right: Biom et 10/03/2028 [id number] / Implanted: Qty: 1 on 12/04/2018 by Markel Cervantes MD at [facility] Knee N A / [id number] documented as of this encounter Procedures Procedure Name Priority Date/Time Associated Diagnosis Comme nts ASSIGNMENT OF BENEFITS Routine 11/08/2019 8:59 AM CDT documented in this encounter Results Not on filedocumented in this encounter Insurance Payer Benefit Plan / Subscriber ID Effective Dates Phone Addre ss Type Group [employer] - BCBS [facility] [id number] 2012-Present PPO/POS [facility] 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
--- OUTSIDE RECORDS SUMMARY | 2019-12-31 18:20 | XMS REPORT | Summary of Care ---
:1955 Author Organization [facility] Address [address] [place] [address] Care Team Providers Name Role Phone Dimitris Primary Care Provider Reason for Visit Reason Comments UPPER RESPIRATORY INFECTION results Encounter Details Date Type Department Care Team Description 11/09/2019 Telephone [facility] Family Pob1, Acute Care UPPER RESPIRATORY Medicine - [facility] INFECTION (results ) [facility] [place] [address] Allergies Active Allergy Reactions Severity Noted Date Comments Hydrocodone Itching, Nausea 11/20/2013 When given H ydrocodone and/or Vomiting, in 03/14, david her's Swelling throat started feeling funny. Possible swelling and it demetrice. Sulfa (Sulfonamide Nausea and/or 11/20/2013 Antibiotics) Vomiting documented as of this encounter (statuses as of 11/09/2019) Medications Medication Sig Dispensed Refills Start Date [...] as of this encounter (statuses as of 11/09/2019) Active Problems Problem Noted Date Essential hypertension 12/04/2018 Primary osteoarthritis of right knee 11/27/2018 Overview: Added automatically from request for erika marshall [id number] Obesity (BMI 30-39.9) 03/06/2018 Total knee replacement status 03/06/2018 Knee pain 11/03/2016 documented as of this encounter (statuses as of 11/09/2019) Immunizations Name Administration Dates Next Due Tdap [...] Treatment Date Type Specialty Care Team Description 11/16/2019 Appointment Radiology Radiology [address] [place] [address] [place] [address] 01/16/2020 Office Visit Cardiology Bárbara Sanchez M D [address] [facility] [address] [place] [address] Health Maintenance Due Date Last Done Comments HEPATITIS C (HCV) SCREEN 1955 COLONOSCOPY 2004 Zoster Recombinant Vaccine (SHINGRIX) (1 of 2) 2004 Medicare Wellness Visit 2019 PNEUMOCOCCAL VACCINES 65+ (1 of 2 - PCV13) 2019 INFLUENZA VACCINE (Season Ended) 2020 DTaP,Tdap,and Td Vaccines (2 - Td) 05/01/2028 05/01/2018 documented as of this encounter Implants Implanted Type Area Paint Stripper Device Shelf Model / Identifier Expiration Serial / Lot Date Bone Cement Injector 1x40 High Viscosity Pinky Ref#[id number] - Sna CEMENT Right: Biomet 06/26/2022 [id number] / Implanted: Qty: 1 on 12/04/2018 by Markel Cervantes MD at [facility] Knee N A / [id number] Primary Tibial Modular Tray KNEE Left: Biomet [id number] / Implanted: Qty: 1 on 03/06/2018 by Markel Cervantes MD at [facility] Knee 8 93041 / [id number] Cr Tibial Bearing KNEE Left: Biomet 09/30/2022 [id number] [id number] / Implanted: Qty: 1 on 03/06/2018 by Markel Cervantes MD at [facility] Knee 9 [id number] / [id number] Tibial Bearing 10 X 79/83 Mm Biomet Ref#[id number] - Sna KNEE Right : Biomet 02/17/2023 [id number] / Implanted: Qty: 1 on 12/04/2018 by Markel Cervantes MD at [facility] Knee N A / [id number] Primary Tibial Modular Tray KNEE Right: Biomet [id number] / Implanted: Qty: 1 on 12/04/2018 by Markel Cervantes MD at [facility] Knee N A / [id number] Cr Femoral - Right KNEE Right: Biomet 08/10/2028 [id number] / Implanted: Qty: 1 on 12/04/2018 by Markel Cervantes MD at [facility] Knee N A / [id number] Cr Femoral Left Knee Hinge Left: Biomet 10/17/2027 18 3072 / Implanted: Qty: 1 on 03/06/2018 by Markel Cervantes MD at [facility] Knee 8 [id number] / [id number] Series A Standard Patella PATELLA Left: Biomet 09/26 [id number] / Implanted: Qty: 1 on 03/06/2018 by Markel Cervantes MD at [facility] Knee 2 [id number] / [id number] Component Patellar Pegx3 37mm Standard 10mm Thk Biomet Ref#1 54353 - Sna PATELLA Right: Biomet 09/28/2022 [id number] / Implanted: Qty: 1 on 12/04/2018 by Markel Cervantes MD at [facility] Knee N A / [id number] Self-Tapping Bone Screw SCREW Left: Biomet 2027 031654 / Implanted: Qty: 2 on 03/06/2018 by Markel Cervantes MD at [facility] Knee 9 12882 / [id number] Self-Tapping Bone Screw SCREW Left: Biomet 2027 [id number] / Implanted: Qty: 1 on 03/06/2018 by Markel Cervantes MD at [facility] Knee 1 [id number] / [id number] Self-Tapping Bone Screw SCREW Left: Biomet 2027 [id number] / Implanted: Qty: 1 on 03/06/2018 by Markel Cervantes MD at [facility] Knee 2 [id number] / [id number] Screw Bone 6.5x30mm Lp St Biomet #[id number] - Sna SCREW Right: Bio met 09/04/2028 843535 / Implanted: Qty: 2 on 12/04/2018 by Markel Cervantes MD at [facility] Knee N A / [id number] Screw Bone 6.5x40mm Lp St Biomet #197664 - Sna SCREW Right: Bio met 08/05/2028 [id number] / Implanted: Qty: 1 on 12/04/2018 by Markel Cervantes MD at [facility] Knee N A / [id number] Screw Bone 6.5x40mm Lp St Biomet #982385 - Sna SCREW Right: Bio met 10/02/2025 [id number] / Implanted: Qty: 1 on 12/04/2018 by Markel Cervantes MD at [facility] Knee N A / [id number] Modular Finned Stem Stem Left: Biomet 01/29/2028 865039 / Implanted: Qty: 1 on 03/06/2018 by Markel Cervantes MD at [facility] Knee 1 36470 / [id number] Stem Finned Primary 40mm Biomet #691443 - Sna Stem Right: Biom et 10/03/2028 [id number] / Implanted: Qty: 1 on 12/04/2018 by Markel Cervantes MD at [facility] Knee N A / [id number] documented as of this encounter Results Not on filedocumented in this encounter Insurance Payer Benefit Plan / Subscriber ID Effective Dates Phone Addre ss Type Group [place] [id number] 2012-Present PPO/POS [employer] 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
--- OUTSIDE RECORDS SUMMARY | 2019-12-31 18:20 | XMS REPORT | Summary of Care ---
:1955 Author Organization [facility] Address [address] [place] [address] Care Team Providers Name Role Phone Dimitris Primary Care Provider Reason for Visit Reason Comments Nausea Body Aches Headache Fatigue Encounter Details Date Type Department Care Team Description 11/08/2019 Urgent Care [facility] Family Radiology [address] [place] [address] Acute nonintractable headache, unspecifi ed headache type (Primary Dx); [place] [address], Acute Care Clinic Bilateral impacted cerumen [address] [place] [phone] Allergies Active Allergy Reactions Severity Noted Date Comments Hydrocodone Itching, Nausea 11/20/2013 When given H ydrocodone and/or Vomiting, in 03/14, david her's Swelling throat started feeling funny. Possible swelling and it demetrice. Sulfa (Sulfonamide Nausea and/or 11/20/2013 Antibiotics) Vomiting documented as of this encounter (statuses as of 11/11/2019) Medications Medication Sig Dispensed Refills Start Date [...] as of this encounter (statuses as of 11/11/2019) Active Problems Problem Noted Date Essential hypertension 12/04/2018 Primary osteoarthritis of right knee 11/27/2018 Overview: Added automatically from request for erika marshall [id number] Obesity (BMI 30-39.9) 03/06/2018 Total knee replacement status 03/06/2018 Knee pain 11/03/2016 documented as of this encounter (statuses as of 11/11/2019) Immunizations Name Administration Dates Next Due Tdap [...] hot shower. Use medicines Aspirin or other slyo-xll-anwxpvp pain medicines, such as ibuprofen and acetaminophen, [...] Yuni newton reviewed this educational content on 08/25/201719992808-6044 [employer]. [address] [place] [address]. All rights reserved. This information is not [...] Yuni last reviewed this educational content on 02/25/201919990882-4742 [employer], [employer]. [address] [place] [address], [place] [address]. All rights reserved. 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 If applicable, the [place] [employer] database was accessed to review any controlled substance prescription claims data. The [place] prescription claims data in [employer] was reviewed to assess patient compliance with the medication treatment plan. Brianne Kruase RN - 11/08/2019 9:40 AM CDT Hema [...] Care Team Description 11/16/2019 Appointment Radiology Radiology [address] [place] [address] [place] [address] 01/16/2020 Office Visit Cardiology Bárbara Sanchez M D [address] [place] [address] Health Maintenance Due Date Last Done Comments HEPATITIS C (HCV) SCREEN 1955 COLONOSCOPY 2004 Zoster Recombinant Vaccine (SHINGRIX) (1 of 2) 2004 Medicare Wellness Visit 2019 PNEUMOCOCCAL VACCINES 65+ (1 of 2 - PCV13) 2019 INFLUENZA VACCINE (Season Ended) 2020 DTaP,Tdap,and Td Vaccines (2 - Td) 05/01/2028 05/01/2018 documented as of this encounter Implants Implanted Type Area Sourcer Device Shelf Model / Identifier Expiration Serial / Lot Date Bone Cement Injector 1x40 High Viscosity Pinky Ref#[id number] - Sna CEMENT Right: Biomet 06/26/2022 [id number] / Implanted: Qty: 1 on 12/04/2018 by Markel Cervantes MD at [facility] Knee N A / [id number] Primary Tibial Modular Tray KNEE Left: Biomet [id number] / Implanted: Qty: 1 on 03/06/2018 by Markel Cervantes MD at [facility] Knee 8 59265 / [id number] Cr Tibial Bearing KNEE Left: Biomet 09/30/2022 [id number] P-[id number] / Implanted: Qty: 1 on 03/06/2018 by Markel Cervantes MD at [facility] Knee 9 10366 / [id number] Tibial Bearing 10 X 79/83 Mm Biomet Ref#226155 - Sna KNEE Right : Biomet 02/17/2023 839126 / Implanted: Qty: 1 on 12/04/2018 by Markel Cervantes MD at [facility] Knee N A / [id number] Primary Tibial Modular Tray KNEE Right: Biomet [id number] / Implanted: Qty: 1 on 12/04/2018 by Markel Cervantes MD at [facility] Knee N A / [id number] Cr Femoral - Right KNEE Right: Biomet 08/10/2028 [id number] / Implanted: Qty: 1 on 12/04/2018 by Markel Cervantes MD at [facility] Knee N A / [id number] Cr Femoral Left Knee Hinge Left: Biomet 10/17/2027 18 3072 / Implanted: Qty: 1 on 03/06/2018 by Markel Cervantes MD at [facility] Knee 8 13542 / [id number] Series A Standard Patella PATELLA Left: Biomet 09/26 [id number] / Implanted: Qty: 1 on 03/06/2018 by Markel Cervantes MD at [facility] Knee 2 62433 / [id number] Component Patellar Pegx3 37mm Standard 10mm Thk Biomet Ref#1 22951 - Sna PATELLA Right: Biomet 09/28/2022 [id number] / Implanted: Qty: 1 on 12/04/2018 by Markel Cervantes MD at [facility] Knee N A / [id number] Self-Tapping Bone Screw SCREW Left: Biomet 2027 874834 / Implanted: Qty: 2 on 03/06/2018 by Markel Cervantes MD at [facility] Knee 9 48212 / [id number] Self-Tapping Bone Screw SCREW Left: Biomet 2027 452134 / Implanted: Qty: 1 on 03/06/2018 by Markel Cervantes MD at [facility] Knee 1 60770 / [id number] Self-Tapping Bone Screw SCREW Left: Biomet 2027 [id number] / Implanted: Qty: 1 on 03/06/2018 by Markel Cervantes MD at [facility] Knee 2 24188 / [id number] Screw Bone 6.5x30mm Lp St Biomet #557266 - Sna SCREW Right: Bio met 09/04/2028 032616 / Implanted: Qty: 2 on 12/04/2018 by Markel Cervantes MD at [facility] Knee N A / [id number] Screw Bone 6.5x40mm Lp St Biomet #835837 - Sna SCREW Right: Bio met 08/05/2028 343648 / Implanted: Qty: 1 on 12/04/2018 by Markel Cervantes MD at [facility] Knee N A / [id number] Screw Bone 6.5x40mm Lp St Biomet #234394 - Sna SCREW Right: Bio met 10/02/2025 062563 / Implanted: Qty: 1 on 12/04/2018 by Markel Cervantes MD at [facility] Knee N A / [id number] Modular Finned Stem Stem Left: Biomet 01/29/2028 372941 / Implanted: Qty: 1 on 03/06/2018 by Markel Cervantes MD at [facility] Knee 1 [id number] / [id number] Stem Finned Primary 40mm Biomet #941260 - Sna Stem Right: Biom et 10/03/2028 826139 / Implanted: Qty: 1 on 12/04/2018 by Markel Cervantes MD at [facility] Knee N A / [id number] documented as of this encounter Procedures Procedure Name Priority Date/Time Associated Diagnosis Comme nts CORONAVIRUS COVID-19 STAT 11/08/2019 9:37 Acute nonintract able Results for this TESTING AM CDT headache, unspecified proced ure are in headache type the results section. documented in this encounter Results CORONAVIRUS COVID-19 TESTING (11/08/2019 9:37 AM CDT) Pathologist Sig nature SARS-CoV-2 Not Detected Not Detected [facility] Specimen Swab - NASOPHARYNGEAL SWAB Narrative Performed At [facility] COVID-19 Assay is an isothermal nucleic [facility] acid amplification test intended for the qualitative detection of nucleic acid from SARS-CoV-2 viral RNA in nasopharyngeal (JOINERY MACHINIST) specimens. It is used under Emergency Use Authorization (EUA) by FDA. The limit of detection (LOD) of the assay is 125 Genome Equivalents/mL. A positive result is indicative of the presence of SARS-CoV-2 RNA. Clinical correlation with patient history and other diagnostic information is necessary to determine patient infection status. A negative (Not Detected) result does not preclude SARS-CoV-2 infection. Clinical correlation with patient history and other diagnostic information should be used in patient management decisions. Invalid: Please collect a new specimen for repeat patient testing if clinically indicated. Performing Organization Address City/State/Zipcode Phone Number [facility] CLIA: [id number], [address] [place], [place] [address] documented in this encounter Visit Diagnoses Diagnosis Acute nonintractable headache, unspecifi ed headache type - Primary Bilateral impacted cerumen Impacted cerumen documented in this encounter Insurance Payer Benefit Plan / Subscriber ID Effective Dates Phone Addre ss Type Group [place] [id number] 2012-Present PPO/POS [employer] [employer] 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
--- OUTSIDE RECORDS SUMMARY | 2019-12-31 18:20 | XMS REPORT | Summary of Care ---
:1955 Author Organization [facility] Address [address] [place] [address] Care Team Providers Name Role Phone Dimitris Primary Care Provider Reason for Referral MRI/CAT Scan (Routine) Status Reason Specialty Diagnoses / Referred By Referred To Procedures Contact Contact Authorized Diagnostic Diagnoses Nonintractable headache, unspecified chronicity pattern, unspecified headache type Nonintractable headache, unspecified chronicity pattern, unspecified headache type Nikolai Shanks V Radiology Procedures MR BRAIN W WO CONTRAST CHG MRI BRAIN COMBO MR BRAIN W WO CONTRAST [address] [place] [address] Reason for Visit MRI/CAT Scan (Routine) Status Reason Specialty Diagnoses / Referred By Referred To Procedures Contact Contact Authorized Diagnostic Diagnoses Nonintractable headache, unspecified chronicity pattern, unspecified headache type Nonintractable headache, unspecified chronicity pattern, unspecified headache type Nikolai Shanks V Radiology Procedures MR BRAIN W WO CONTRAST CHG MRI BRAIN COMBO MR BRAIN W WO CONTRAST [address] [place] [address] Encounter Details Date Type Department Care Team Description 11/08/2019 Hospital Encounter [facility] Radiology Canceled (PATIENT Fluker [address] [facility] ) [address] [place] [address] [place] [phone] Allergies Active Allergy Reactions Severity Noted Date [...] Added automatically from request for erika marshall [id number] Obesity (BMI 30-39.9) 03/06/2018 Total knee replacement [...] Visit Cardiology Bárbara Sanchez M D [address] [address] 15 [phone] Name Type Priority Associated Diagnoses Order S chedule MR BRAIN W WO IMAGING Routine Nonintractable headache, 1 Occurrences starting CONTRAST unspecified chronicity 11/07 until pattern, unspecified 020 headache type Health Maintenance Due Date Last Done Comments HEPATITIS C (HCV) SCREEN 1955 COLONOSCOPY 2004 Zoster Recombinant Vaccine (SHINGRIX) (1 of 2) 2004 Medicare Wellness Visit 2019 PNEUMOCOCCAL VACCINES 65+ (1 of 2 - PCV13) 2019 INFLUENZA VACCINE (Season Ended) 2020 DTaP,Tdap,and Td Vaccines (2 - Td) 05/01/2028 05/01/2018 documented as of this encounter Implants Implanted Type Area Court Administrator Device Shelf Model / Identifier Expiration Serial / Lot Date Bone Cement Injector 1x40 High Viscosity Pinky Ref#[id number] - Sna CEMENT Right: Biomet 06/26/2022 [id number] / Implanted: Qty: 1 on 12/04/2018 by Markel Cervantes MD at [facility] Knee N A / [id number] Primary Tibial Modular Tray KNEE Left: Biomet [id number] / Implanted: Qty: 1 on 03/06/2018 by Markel Cervantes MD at [facility] Knee 8 [id number] / [id number] Cr Tibial Bearing KNEE Left: Biomet 09/30/2022 [id number] / Implanted: Qty: 1 on 03/06/2018 by Markel Cervantes MD at [facility] Knee 9 [id number] / [id number] Tibial Bearing 10 X 79/83 Mm Biomet Ref#[id number] - Sna KNEE Right : Biomet 02/17/2023 [id number] / Implanted: Qty: 1 on 12/04/2018 by Markel Cervantes MD at [facility] Knee N A / [id number] Primary Tibial Modular Tray KNEE Right: Biomet [id number] / Implanted: Qty: 1 on 12/04/2018 by Markel Cervantes MD at [facility] Knee N A / [id number] Cr Femoral - Right KNEE Right: Biomet 08/10/2028 [id number] / Implanted: Qty: 1 on 12/04/2018 by Markel Cervantes MD at [facility] Knee N A / [id number] Cr Femoral Left Knee Hinge Left: Biomet 10/17/2027 18 [id number] / Implanted: Qty: 1 on 03/06/2018 by Markel Cervantes MD at [facility] Knee 8 [id number] / [id number] Series A Standard Patella PATELLA Left: Biomet 09/26 [id number] / Implanted: Qty: 1 on 03/06/2018 by Markel Cervantes MD at [facility] Knee 2 [id number] / [id number] Component Patellar Pegx3 37mm Standard 10mm Thk Biomet Ref#1 [id number] - Sna PATELLA Right: Biomet 09/28/2022 [id number] / Implanted: Qty: 1 on 12/04/2018 by Markel Cervantes MD at [facility] Knee N A / [id number] Self-Tapping Bone Screw SCREW Left: Biomet 2027 [id number] / Implanted: Qty: 2 on 03/06/2018 by Markel Cervantes MD at [facility] Knee 9 [id number] / [id number] Self-Tapping Bone Screw SCREW Left: Biomet 2027 [id number] / Implanted: Qty: 1 on 03/06/2018 by Markel Cervantes MD at [facility] Knee 1 [id number] / [id number] Self-Tapping Bone Screw SCREW Left: Biomet 2027 [id number] / Implanted: Qty: 1 on 03/06/2018 by Markel Cervantes MD at [facility] Knee 2 [id number] / [id number] Screw Bone 6.5x30mm Lp St Biomet #[id number] - Sna SCREW Right: Bio met 09/04/2028 [id number] / Implanted: Qty: 2 on 12/04/2018 by Markel Cervantes MD at [facility] Knee N A / [id number] Screw Bone 6.5x40mm Lp St Biomet #[id number] - Sna SCREW Right: Bio met 08/05/2028 [id number] / Implanted: Qty: 1 on 12/04/2018 by Markel Cervantes MD at [facility] Knee N A / [id number] Screw Bone 6.5x40mm Lp St Biomet #[id number] - Sna SCREW Right: Bio met 10/02/2025 [id number] / Implanted: Qty: 1 on 12/04/2018 by Markel Cervantes MD at [facility] Knee N A / [id number] Modular Finned Stem Stem Left: Biomet 01/29/2028 [id number] / Implanted: Qty: 1 on 03/06/2018 by Markel Cervantes MD at [facility] Knee 1 [id number] / [id number] Stem Finned Primary 40mm Biomet #[id number] - Sna Stem Right: Biom et 10/03/2028 [id number] / Implanted: Qty: 1 on 12/04/2018 by Markel Cervantes MD at [facility] Knee N A / [id number] documented as of this encounter Results Not on filedocumented in this encounter Visit Diagnoses Diagnosis Nonintractable headache, unspecified chr onicity pattern, unspecified headache type documented in this encounter Insurance Payer Benefit Plan / Subscriber ID Effective Dates Phone Addre ss Type Group [facility] [id number] 2012-Present PPO/POS [facility] [employer] [employer] [facility] [employer] 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
--- OUTSIDE RECORDS SUMMARY | 2019-12-31 18:21 | XMS REPORT | Summary of Care ---
:1955 Author Organization [facility] Address [address] [place] [address] Care Team Providers Name Role Phone Dimitris Primary Care Provider Reason for Visit MRI/CAT Scan (Routine) Status Reason Specialty Diagnoses / Referred By Referred To Procedures Contact Contact Closed Diagnostic Diagnoses Nonintractable headache, unspecified chronicity pattern, unspecified headache type Nonintractable headache, unspecified chronicity pattern, unspecified headache type Nikolai Shanks V Radiology Procedures MR BRAIN W WO CONTRAST CHG MRI BRAIN COMBO MR BRAIN W WO CONTRAST [address] [facility] [place] [address] Encounter Details Date Type Department Care Team Description 11/16/2019 Hospital Encounter [facility] Magnetic Radiolog y Arrived Resonance Imaging [address] [place] [address] [place] [address] [place] [phone] Allergies Active Allergy Reactions Severity Noted Date Comments Hydrocodone Itching, Nausea 11/20/2013 When given H ydrocodone and/or Vomiting, in 03/14, david her's Swelling throat started feeling funny. Possible swelling and it demetrice. Sulfa (Sulfonamide Nausea and/or 11/20/2013 Antibiotics) Vomiting documented as of this encounter (statuses as of 11/17/2019) Medications Medication Sig Dispensed Refills Start Date [...] as of this encounter (statuses as of 11/17/2019) Active Problems Problem Noted Date Essential hypertension 12/04/2018 Primary osteoarthritis of right knee 11/27/2018 Overview: Added automatically from request for erika joanna [id number] Obesity (BMI 30-39.9) 03/06/2018 Total knee replacement status 03/06/2018 Knee pain 11/03/2016 documented as of this encounter (statuses as of 11/17/2019) Immunizations Name Administration Dates Next Due Tdap [...] been in contact with No / Unsure 11/16/2019 12:08 PM CDT someone who was confirmed or suspected to have Coronavirus / COVID-19? documented as of this encounter Last Filed Vital Signs Not on filedocumented in this encounter Plan of Treatment Date Type Specialty Care Team Description 01/16/2020 Office Visit Cardiology Bárbara Sanchez M D [address] [place] [address] 15 [phone] Name Type Priority Associated Diagnoses Date/Ti me MR BRAIN W WO IMAGING Routine Nonintractable headache, 10:52 AM CONTRAST unspecified chronicity CDT pattern, unspecified headache type Health Maintenance Due Date Last Done Comments HEPATITIS C (HCV) SCREEN 1955 COLONOSCOPY 2004 Zoster Recombinant Vaccine (SHINGRIX) (1 of 2) 2004 Medicare Wellness Visit 2019 PNEUMOCOCCAL VACCINES 65+ (1 of 2 - PCV13) 2019 INFLUENZA VACCINE (Season Ended) 2020 DTaP,Tdap,and Td Vaccines (2 - Td) 05/01/2028 05/01/2018 documented as of this encounter Implants Implanted Type Area V Belt Curer Device Shelf Model / Identifier Expiration Serial / Lot Date Bone Cement Injector 1x40 High Viscosity Pinky Ref#[id number] - Sna CEMENT Right: Biomet 06/26/2022 [id number] / Implanted: Qty: 1 on 12/04/2018 by Markel Cervantes MD at [facility] Knee N A / [id number] Primary Tibial Modular Tray KNEE Left: Biomet [id number] / Implanted: Qty: 1 on 03/06/2018 by Markel Cervantes MD at [facility] Knee 8 [id number] / [id number] Cr Tibial Bearing KNEE Left: Biomet 09/30/2022 [id number] / Implanted: Qty: 1 on 03/06/2018 by Markel Cervantes MD at [facility] Knee 9 [id number] / [id number] Tibial Bearing 10 X 79/83 Mm Biomet Ref#[id number] - Sna KNEE Right : Biomet 02/17/2023 [id number] / Implanted: Qty: 1 on 12/04/2018 by Markel Cervantes MD at [facility] Knee N A / [id number] Primary Tibial Modular Tray KNEE Right: Biomet [id number] / Implanted: Qty: 1 on 12/04/2018 by Markel Cervantes MD at [facility] Knee N A / [id number] Cr Femoral - Right KNEE Right: Biomet 08/10/2028 [id number] / Implanted: Qty: 1 on 12/04/2018 by Markel Cervantes MD at [facility] Knee N A / [id number] Cr Femoral Left Knee Hinge Left: Biomet 10/17/2027 18 3072 / Implanted: Qty: 1 on 03/06/2018 by Markel Cervantes MD at [facility] Knee 8 [id number] / [id number] Series A Standard Patella PATELLA Left: Biomet 09/26 [id number] / Implanted: Qty: 1 on 03/06/2018 by Markel Cervantes MD at [facility] Knee 2 [id number] / [id number] Component Patellar Pegx3 37mm Standard 10mm Thk Biomet Ref#1 [id number] - Sna PATELLA Right: Biomet 09/28/2022 [id number] / Implanted: Qty: 1 on 12/04/2018 by Markel Cervantes MD at [facility] Knee N A / [id number] Self-Tapping Bone Screw SCREW Left: Biomet 2027 [id number] / Implanted: Qty: 2 on 03/06/2018 by Markel Cervantes MD at [facility] Knee 9 [id number] / [id number] Self-Tapping Bone Screw SCREW Left: Biomet 2027 [id number] / Implanted: Qty: 1 on 03/06/2018 by Markel Cervantes MD at [facility] Knee 1 [id number] / [id number] Self-Tapping Bone Screw SCREW Left: Biomet 2027 [id number] / Implanted: Qty: 1 on 03/06/2018 by Markel Cervantes MD at [facility] Knee 2 [id number] / [id number] Screw Bone 6.5x30mm Lp St Biomet #[id number] - Sna SCREW Right: Bio met 09/04/2028 [id number] / Implanted: Qty: 2 on 12/04/2018 by Markel Cervantes MD at [facility] Knee N A / [id number] Screw Bone 6.5x40mm Lp St Biomet #[id number] - Sna SCREW Right: Bio met 08/05/2028 [id number] / Implanted: Qty: 1 on 12/04/2018 by Markel Cervantes MD at [facility] Knee N A / [id number] Screw Bone 6.5x40mm Lp St Biomet #[id number] - Sna SCREW Right: Bio met 10/02/2025 [id number] / Implanted: Qty: 1 on 12/04/2018 by Markel Cervantes MD at [facility] Knee N A / [id number] Modular Finned Stem Stem Left: Biomet 01/29/2028 [id number] / Implanted: Qty: 1 on 03/06/2018 by Markel Cervantes MD at [facility] Knee 1 [id number] / [id number] Stem Finned Primary 40mm Biomet #[id number] - Sna Stem Right: Biom et 10/03/2028 [id number] / Implanted: Qty: 1 on 12/04/2018 by Markel Cervantes MD at [facility] Knee N A / [id number] documented as of this encounter Results Not on filedocumented in this encounter Insurance Payer Benefit Plan / Subscriber ID Effective Dates Phone Addre ss Type Group [facility] [id number] 2012-Present PPO/POS [employer] 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
--- NOTE | 2019-12-31 18:56 | RAD REPORT ---
EXAM DESCRIPTION: RAD - Chest Single View - 12/31/2019 6:37 pm CLINICAL HISTORY: CHEST PAIN COMPARISON: Portable August 2016 TECHNIQUE: AP portable chest image was obtained 12/31/2019 6:37 pm . FINDINGS: Lungs are clear. Heart and vasculature are normal. No measurable pleural effusion and no p neumothorax. No acute bony abnormality seen. No acute aortic findings suspected. IMPRESSION: No acute cardiopulmonary process. No significant change from comparison.
[2019-12-31] MEDS ORDERED: ONDANSETRON 4 MG/2 ML VIAL IV PRN (19:37)
[2019-12-31] MEDS ORDERED: ACETAMINOPHEN 325 MG TABLET PO PRN (19:42)
[2019-12-31 20:04] VITALS: BMI 36.0
[2019-12-31] MEDS: ENOXAPARIN 100 MG/ML SYR SQ SCH (20:46)
[2019-12-31] MEDS: FAMOTIDINE 20 MG/2 ML VIAL IV SCH (22:43)
[2020-01-01 05:22] LABS: RBC Red Blood Cell Count 5.04 M/uL (4.33-5.43)
[2020-01-01 05:23] LABS: Absolute Lymphocytes (CBC) 2.9 K/uL (0.7-4.9); Hematocrit 42.8 % (39.6-49.0); Lymphocytes % 32.7 % (15.3-44.8); MPV 7.2 fL (7.6-11.3)
[2020-01-01 05:38] LABS: Potassium 4.1 mmol/L (3.5-5.1)
[2020-01-01] MEDS ORDERED: carvediloL 3.125 MG TAB PO SCH (06:00)
[2020-01-01] MEDS ORDERED: ASPIRIN EC 81 MG TAB PO SCH (09:00)
[2020-01-01] MEDS: ENOXAPARIN 100 MG/ML SYR SQ SCH (09:00)
[2020-01-01] MEDS: FAMOTIDINE 20 MG/2 ML VIAL IV SCH (09:57)
--- NOTE | 2020-01-01 10:54 | EKG ---
Test Date: 2020-01-01 Test Time: 09:23:54 Direct Customer Service Representative: DEB MEASUREMENT RESULTS: Intervals: Rate: 66 MD: 162 QRSD: 88 QT: 378 QTc: 396 [place]: P: 57 MD: 162 QRS: -3 T: 3 INTERPRETIVE STATEMENTS: Normal sinus rhythm Normal ECG Compared to ECG 12/31/2019 16:36:53 Myocardial infarct finding no longer present Electronically Signed On 01-01-20 10:53:47 CDT by Luis Fernando Dumas
--- NOTE | 2020-01-01 10:56 | EKG ---
Test Date: 2019-12-31 Test Time: 16:36:53 Environmental Sustainability Manager: JUSTIN MEASUREMENT RESULTS: Intervals: Rate: 75 [place]: 152 QRSD: 82 QT: 356 QTc: 397 [place]: P: 47 WY: 152 QRS: -20 T: 14 INTERPRETIVE STATEMENTS: Normal sinus rhythm Cannot rule out Anterior infarct, age undetermined Abnormal ECG Compared to ECG 08/25/2016 12:12:23 Myocardial infarct finding now present Sinus bradycardia no longer present Electronically Signed On 01-01-20 10:54:02 CDT by Luis Fernando Dumas
--- NOTE | 2020-01-01 11:14 | ECHO ---
HEIGHT: 5 ft 11 in WEIGHT: 258 lb 3.2 oz DATE OF STUDY: 01/01/[address]: Juan Ha MD 2-DIMENSIONAL: YES M.MODE: YES DOPPLER: YES COLOR FLOW: YES TDS: NO PORTABLE: NO DEFINITY: NO BUBBLE STUDY: NO DIAGNOSIS: CHEST PAIN CARDIAC HISTORY: CATHERIZATION: NO SURGERY: NO PROSTHETIC VALVE: NO PACEMAKER: NO MEASUREMENTS (cm) DIASTOLIC (NORMALS) SYSTOLIC (NORMALS) IVSd 0.9 (0.6-1.2) LA Diam 3.9 (1.9-4.0) LVEF 70% LVIDd 4.0 (3.5-5.7) LVIDs 2.5 (2.0-3.5) %FS 39% LVPWd 1.0 (0.6-1.2) Ao Diam 3.0 (2.0-3.7) 2 DIMENSIONAL ASSESSMENT: RIGHT ATRIUM: NORMAL LEFT ATRIUM: NORMAL RIGHT VENTRICLE: NORMAL LEFT VENTRICLE: NORMAL TRICUSPID VALVE: NORMAL MITRAL VALVE: NORMAL PULMONIC VALVE: NORMAL AORTIC VALVE: NORMAL PERICARDIAL EFFUSION: NONE AORTIC ROOT: NORMAL LEFT VENTRICULAR WALL MOTION: NORMAL DOPPLER/COLOR FLOW: NORMAL COMMENTS: NORMAL 2D ECHOCARDIOGRAM WITH DOPPLER. NO WALL MOTION ABNORMALITY. NO EFFUSION. TECHNOLOGIST: Barbara BURGOS
[2020-01-01 12:15] VITALS: BP 158/82; TEMP 97.6
[2020-01-01 12:31] VITALS: O2SAT 96
--- NOTE | 2020-01-01 21:28 | P.SSS ---
Patient History Date of Service: 01/01/20 Reason for admission: CHEST PAIN History of Present Illness: MR DIAZ IS A NON SMOKER, NON DIABETIC , OBESE GM WHO HAS CHEST PAIN AND ARM PAIN THAT IS NOT EXERSIONAL. HE RULED OUT FOR AR. HE HAS NORMAL EKG. ECHO IS NORMAL. HE WILL GET STRESS TEST BY DR. GOMEZ. HE IS STABLE TO GO HOME. Allergies Sulfa (Sulfonamide Antibiotics) Allergy (Verified 12/31/19 20:05) Itching/Hives/Rash codeine Adverse Reaction (Mild, Verified 12/31/19 20:05) nausea Home Medications: Allopurinol 100 mg PO DAILY 01/01/20 Irbesartan 300 mg PO BEDTIME 01/01/20 Levothyroxine [Synthroid*] 0.075 mg PO DAILY 01/01/20 carvediloL [Coreg*] 6.25 mg PO BID 01/01/20 - Past Medical/Surgical History Has patient received pneumonia vaccine in the past: No Diabetic: No -: gout -: hypothyroidism -: kidney stones -: removal kidney stones with stent -: hand surgery - Family History Mother -: Cancer Brother -: Cancer Father -: Cancer - Social History Smoking Status: Never smoker Alcohol use: No CD- Drugs: No Caffeine use: Yes Place of Residence: Home Review of Systems 10-point ROS is otherwise unremarkable General: Weakness, Malaise Cardiovascular: Chest Pain Physical Examination - Vital Signs Temperature: 97.6 F Blood Pressure: 158/82 Pulse: 68 Respirations: 16 Pulse Ox (%): 96 - Physical Exam General: Alert, In no apparent distress HEENT: Atraumatic, PERRLA, Mucous membr. moist/pink, EOMI, Sclerae nonicteric Neck: Supple, 2+ carotid pulse no bruit, No LAD, Without JVD or thyroid abnormality Respiratory: Clear to auscultation bilaterally, Normal air movement Cardiovascular: Regular rate/rhythm, Normal S1 S2 Gastrointestinal: Normal bowel sounds, No tenderness Musculoskeletal: No tenderness Integumentary: No rashes Neurological: Normal gait, Normal speech, Normal strength at 5/5 x4 extr, Normal tone, Normal affect Lymphatics: No axilla or inguinal lymphadenopathy - Diagnosis (Problem(s)) (1) HTN (hypertension) Status: Chronic Qualifiers: Hypertension type: essential hypertension Qualified Code(s): I10 - Essential (primary) hypertension (2) Obesity (BMI 30-39.9) Status: Acute (3) Chest pain Onset Date: 08/26/16 Status: Acute Plan: ATYPICAL CH PAIN. NG CE ST TEST O. STABLE FOR DC. Qualifiers: Chest pain type: precordial pain Qualified Code(s): R07.2 - Precordial pain - Disposition Condition: GOOD Patient Discharge Instructions: FU WITH DR. GOMEZ FOR ST TEST.
--- NOTE | 2020-01-01 22:34 | CON ---
Date of Consultation: 01/01/2020 Reason For Consultation: Atypical chest pain. History Of Present Illness: Mr. Murrell is a 64-year-old male, has a history of gout, hypothyroidi sm and hypertension. He came in with chest pain that is midsternal without any radiation that has be en going on for about 4-6 hours. Despite the duration of the chest pain, he had a normal EKG, normal troponin. It seemed that his pain is sometimes positional. Was also having some headaches and dizz iness with it. Denies any nausea, vomiting, diaphoresis, PND, orthopnea, pedal edema, palpitations, or syncope. By the time I saw him, all his workup was negative. EKG was negative. Chest x-ray was negative. Echocardiogram was negative. He continues to have pain, mostly when he moves on his left side. Past Medical History: As stated above. Allergies: HE IS ALLERGIC TO SULFA AND CODEINE. Review of Systems: Negative. Social History: Negative. Family History: Negative. Medications: At home include Coreg, Synthroid, irbesartan, and allopurinol. Physical Examination: General: He weighed 258 pounds. Vital Signs: Stable, afebrile, no acute distress, sinus rhythm HEENT: Negative. Neck: Supple without any bruit, lymphadenopathy, JVD, or thyromegaly. Chest: Clear to auscultation and percussion. Cardiac: Revealed a regular rhythm and rate. No murmurs, gallops, or rubs. Abdomen: Benign. Extremities: Revealed no clubbing, cyanosis, or edema. Diagnostic Data: As stated earlier. Impression And Plan: Atypical chest pain in a 64-year-old with history of hypertension, obesity. He has ruled out for a myocardial infarction. His pain is atypical, but nevertheless he remains at hig h risk for possible coronary artery disease. His echo is normal. His EKG is normal. His troponin i s normal. I am comfortable with Mr. Murrell going home. I will make an arrangement for him to hav e an outpatient stress test in the near future. Continue his present regimen. AGGIE/MEHDIL Voice ID: [id number] Report ID: [id number]
== END 2020-01-01 14:28 | disposition home or self-care (01) ==
LOC: ER 16:26 → ERHOLD 17:22 → 2ND 18:39
PROVIDERS: ADMIT Internal Medicine; ATTEND Internal Medicine
DX: R07.89 Other chest pain (principal); R07.2 Precordial pain; I10 Essential (primary) hypertension; E66.9 Obesity, unspecified; Z68.35 Body mass index [BMI] 35.0-35.9, adult; Z11.59 Encounter for screening for other viral diseases; R94.31 Abnormal electrocardiogram [ECG] [EKG]; E03.9 Hypothyroidism, unspecified; M10.9 Gout, unspecified; Z79.899 Other long term (current) drug therapy
CPT/HCPCS: 93005 ×2; 93306; 85025 ×2; 80048 ×2; 36415 ×2; 83735; 80076; 84484 ×3; 83880; 71045; 96360; 96372; 99285; U0002; J1650; J7030; G0378 ×2

== ENCOUNTER 2021-01-25 19:23 | Emergency (ER) | payer BC, OTHER ==
--- OUTSIDE RECORDS SUMMARY | 2021-01-25 19:25 | XMS REPORT | Continuity of Care Document ---
:1955 Author Organization [facility] t Address [address] [place] [address] Care Team Providers Name Role Phone Mahesh MERCADO Attending Clinician Problems This patient has no known problems. Allergies, Adverse Reactions, Alerts This patient has no known allergies or adverse reactions. Medications This patient has no known medications. Procedures This patient has no known procedures. Encounters Start End Encounter Admission Attending Care Care Encounter Source Date/Time Date/Time Type Type Clinicians Facility Department ID 2020-09-01 2020-09-01 Office FREDERIC Aragon [id number] 14:22:50 16:37:07 Visit Patricia EDMONDS [id number] [facility] [id number] [facility] [id number] [facility] Results This patient has no known results.
--- NOTE | 2021-01-25 21:15 | RAD REPORT ---
EXAM DESCRIPTION: RAD - Chest Single View - 01/25/2021 9:09 pm CLINICAL HISTORY: COUGH Chest pain. COMPARISON: <Comparisons> FINDINGS: Portable technique limits examination quality. Mild prominence of the interstitial lung markings is seen which may indicate viral infection/bronchit is. The heart is normal in size. No displaced fractures.
[2021-01-25] MEDS ORDERED: ACETAMINOPHEN 500 MG TAB ONE (21:28)
[2021-01-25 21:34] LABS: Absolute Lymphocytes (CBC) 0.9 K/uL (0.7-4.9); Basophils % 1.5 % (0-1.3); Hematocrit 44.3 % (39.6-49.0); Lymphocytes % 24.4 % (15.3-44.8); MPV 7.1 fL (7.6-11.3); RBC Red Blood Cell Count 5.25 M/uL (4.33-5.43)
--- NOTE | 2021-01-25 22:47 | ER ---
Nurse's Notes [facility] Name: Theron Murrell Age: 65 yrs Sex: Male : 1955 Arrival Date: 01/25/2021 Time: 19:25 Bed 20 Private MD: Diagnosis: Positive Covid 19. Upper respiratory infection Presentation: 01/25 19:46 Chief complaint: Patient states: Headache, dry cough, and shortness of breath began vg1 Tuesday01/23/21. Pt states nausea, denies vomiting or diarrhea. States was exposed to Covid at work. Coronavirus screen: Client denies travel out of the [place] in the last 14 days. Client presents with at least one sign or symptom that may indicate coronavirus-19. Standard/surgical mask placed on the client. Ebola Screen: Patient negative for fever greater than or equal to 101.5 degrees Fahrenheit, and additional compatible Ebola Virus Disease symptoms. Initial Sepsis Screen: Does the patient meet any 2 criteria? No. Patient's initial sepsis screen is negative. Does the patient have a suspected source of infection? No. Patient's initial sepsis screen is negative. Risk Assessment: Do you want to hurt yourself or someone else? Patient reports no desire to harm self or others. Onset of symptoms was January 25, 2021. 19:46 Method Of Arrival: Ambulatory [facility] 19:46 Acuity: EDOUARD 4 vg1 Triage Assessment: 19:49 Headache History: The patient has had previous headaches and this one is similar to vg1 previous episodes. General: Appears in no apparent distress. Behavior is calm, cooperative. Pain: Denies pain. Neuro: Level of Consciousness is awake, alert, obeys commands, Oriented to person, place, time, situation. Respiratory: Airway is patent Respiratory effort is even, unlabored. 23:10 Pain: Pain currently is 0 out of 10 on a pain scale. Pain began gradually, Also ld1 complains of. Historical: - Allergies: 19:49 Codeine; vg1 19:49 Sulfa (Sulfonamide Antibiotics); vg1 - Home Meds: 19:49 Allopurinol Oral once daily [Active]; levothyroxine 50 mcg tab 1 tab once daily vg1 [Active]; carvedilol oral [Active]; - PMHx: 19:49 Bronchitis; Gout; Hypothyroidism; Kidney stones; Hypertensive disorder; vg1 - Immunization history:: Adult Immunizations up to date. - Social history:: Smoking status: Patient denies any tobacco usage or history of. Screenin:15 Abuse screen: Denies threats or abuse. Denies injuries from another. Nutritional ld1 screening: No deficits noted. Tuberculosis screening: No symptoms or risk factors identified. Fall Risk None identified. Assessment: 21:15 General: Appears in no apparent distress. comfortable, Behavior is calm, cooperative, ld1 appropriate for age. Pain: Denies pain. Neuro: Level of Consciousness is awake, alert, obeys commands, Oriented to person, place, time, situation. Cardiovascular: Capillary refill < 3 seconds Patient's skin is warm and dry. Respiratory: Airway is patent Respiratory effort is even, unlabored, Respiratory pattern is regular, symmetrical. Respiratory: Reports cough that is non-productive. GI: Abdomen is round non-distended. : No signs and/or symptoms were reported regarding the genitourinary system. EENT: No signs and/or symptoms were reported regarding the EENT system. Derm: No signs and/or symptoms reported regarding the dermatologic system. Musculoskeletal: No signs and/or symptoms reported regarding the musculoskeletal system. 22:09 Reassessment: Patient appears in no apparent distress at this time. Patient is alert, ld1 oriented x 3, equal unlabored respirations, skin warm/dry/pink. Patient denies pain at this time. Vital Signs: 19:46 BP 158 / 88; Pulse 81; Resp 20; Temp 99.7(O); Pulse Ox 98% ; Weight 112.04 kg; Height 5 1 ft. 11 in. (180.34 cm); Pain 0/10; 21:15 BP 152 / 80; Pulse 79; Resp 18; Pulse Ox 99% on R/A; ld1 22:09 BP 162 / 89; Pulse 85; Resp 18; Temp 99(O); Pulse Ox 97% on R/A; ld1 19:46 Body Mass Index 34.45 (112.04 kg, 180.34 cm) 1 ED Course: 19:25 Patient arrived in ED. 19:49 Triage completed. 1 19:49 Arm band placed on Patient placed Patient notified of wait time. EKG completed in 1 triage. Results shown to MD. 19:51 COVID swab sent to lab. Flu and/or RSV swab sent to lab. vg1 20:53 Elieser Logan MD is Attending Physician. pkl 20:55 Korin Murillo, RN is Primary Nurse. ld1 21:09 XRAY CXR (1 view) In Process Unspecified. EDMS 21:15 Patient has correct armband on for positive identification. Bed in low position. Call ld1 light in reach. Side rails up X2. Pulse ox on. NIBP on. Door closed. Noise minimized. Warm blanket given. 21:15 COVID-19 : Document "Date of Symptom Onset" if Symptomatic. Sent. ld1 21:15 Flu Sent. ld1 21:15 Strep Sent. ld1 21:15 Group A Streptococcus Rapid Sc Sent. ld1 21:15 No provider procedures requiring assistance completed. Inserted saline lock: 20 gauge ld1 in right antecubital area, using aseptic technique. Blood collected. 23:10 IV discontinued, intact, bleeding controlled, No redness/swelling at site. ld1 Administered Medications: 21:05 Drug: Tylenol 1000 mg Route: PO; ld1 21:15 Follow up: Response: No adverse reaction ld1 Outcome: 22:47 Discharge ordered by . pkl 23:03 Patient left the ED. mw2 23:10 Discharged to home ambulatory. ld1 23:10 Condition: stable 23:10 Discharge instructions given to patient, Instructed on discharge instructions, follow up and referral plans. Demonstrated understanding of instructions, follow-up care. Signatures: Dispatcher [employer] [facility] Elieser Logan MD MD pkl Mariat Jaimes mw2 April Rose RN RN vg1 Korin Murillo, GRACIELA RN ld1 Yina Hull Corrections: (The following items were deleted from the chart) 19:50 19:49 Home Meds: Aleve Oral; vg1 vg1 19:50 19:49 PMHx: Myocardial infarction; vg1 vg1
--- NOTE | 2021-01-25 22:47 | EDPHYS ---
Physician Documentation [facility] Name: Theron Murrell Age: 65 yrs Sex: Male : 1955 Arrival Date: 01/25/2021 Time: 19:25 Bed 20 Private MD: ED Physician Elieser Logan HPI: 01/25 21:01 This 65 yrs old Male presents to ER via Ambulatory with complaints of Cough, pkl Fever, Headache. 21:01 The patient or guardian reports cough, described as mild, with no sputum. Onset: The pkl symptoms/episode began/occurred 3 day(s) ago. Associated signs and symptoms: Pertinent positives: nausea, rhinorrhea, sore throat, headache. Patient exposed to Co-worker who was tested positive for Covid 19 6 days ago. Historical: - Allergies: 19:49 Codeine; vg1 19:49 Sulfa (Sulfonamide Antibiotics); vg1 - Home Meds: 19:49 Allopurinol Oral once daily [Active]; levothyroxine 50 mcg tab 1 tab once daily vg1 [Active]; carvedilol oral [Active]; - PMHx: 19:49 Bronchitis; Gout; Hypothyroidism; Kidney stones; Hypertensive disorder; vg1 - Immunization history:: Adult Immunizations up to date. - Social history:: Smoking status: Patient denies any tobacco usage or history of. ROS: 21:01 Eyes: Negative for injury, pain, redness, and discharge. pkl 21:01 ENT: Positive for nasal discharge, sore throat. 21:01 Neck: Negative for stiffness. 21:01 Cardiovascular: Negative for chest pain. 21:01 Respiratory: Positive for cough, with no reported sputum. 21:01 Abdomen/GI: Positive for nausea, Negative for abdominal pain, vomiting, diarrhea. 21:01 Back: Negative for acute changes. 21:01 : Negative for urinary symptoms. 21:01 MS/extremity: Negative for acute changes. 21:01 Skin: Negative for rash. 21:01 Neuro: Negative for altered mental status, loss of consciousness. Exam: 21:01 Head/Face: Normocephalic, atraumatic. Eyes: Pupils equal round and reactive to light, pkl extra-ocular motions intact. Lids and lashes normal. Conjunctiva and sclera are non-icteric and not injected. Cornea within normal limits. Periorbital areas with no swelling, redness, or edema. ENT: Nares patent. No nasal discharge, no septal abnormalities noted. Tympanic membranes are normal and external auditory canals are clear. Oropharynx with no redness, swelling, or masses, exudates, or evidence of obstruction, uvula midline. Mucous membranes moist. Neck: Trachea midline, no thyromegaly or masses palpated, and no cervical lymphadenopathy. Supple, full range of motion without nuchal rigidity, or vertebral point tenderness. No Meningismus. Chest/axilla: Normal chest wall appearance and motion. Nontender with no deformity. No lesions are appreciated. Cardiovascular: Regular rate and rhythm with a normal S1 and S2. No gallops, murmurs, or rubs. Normal PMI, no JVD. No pulse deficits. Respiratory: Lungs have equal breath sounds bilaterally, clear to auscultation and percussion. No rales, rhonchi or wheezes noted. No increased work of breathing, no retractions or nasal flaring. Abdomen/GI: Soft, non-tender, with normal bowel sounds. No distension or tympany. No guarding or rebound. No evidence of tenderness throughout. Back: No spinal tenderness. No costovertebral tenderness. Full range of motion. Skin: Warm, dry with normal turgor. Normal color with no rashes, no lesions, and no evidence of cellulitis. MS/ Extremity: Pulses equal, no cyanosis. Neurovascular intact. Full, normal range of motion. Neuro: Awake and alert, GCS 15, oriented to person, place, time, and situation. Cranial nerves II-XII grossly intact. Motor strength 5/5 in all extremities. Sensory grossly intact. Cerebellar exam normal. Normal gait. Vital Signs: 19:46 BP 158 / 88; Pulse 81; Resp 20; Temp 99.7(O); Pulse Ox 98% ; Weight 112.04 kg; Height 5 vg1 ft. 11 in. (180.34 cm); Pain 0/10; 21:15 BP 152 / 80; Pulse 79; Resp 18; Pulse Ox 99% on R/A; ld1 22:09 BP 162 / 89; Pulse 85; Resp 18; Temp 99(O); Pulse Ox 97% on R/A; ld1 19:46 Body Mass Index 34.45 (112.04 kg, 180.34 cm) vg1 MDM: 20:53 Patient medically screened. pkl 22:43 Data reviewed: vital signs, nurses notes, lab test result(s), EKG, radiologic studies, pkl plain films. ED course: Discussed lab and X' rays result with patient. To quarantine for 10 days. To return if unable to breath. Patient understood instructions. 01/25 19:33 Order name: COVID-19 : Document "Date of Symptom Onset" if Symptomatic. mw2 01/25 19:33 Order name: Flu mw2 01/25 19:34 Order name: Influenza Screen (A ; Complete Time: 22:28 EDMS 01/25 21:00 Order name: Strep pkl 01/25 21:00 Order name: CBC with Diff pkl 01/25 21:00 Order name: Chem 7; Complete Time: 22:28 pkl 01/25 21:00 Order name: XRAY CXR (1 view); Complete Time: 22:28 pkl 01/25 21:01 Order name: Group A Streptococcus Rapid Sc; Complete Time: 22:28 EDMS 01/25 21:01 Order name: CBC with Automated Diff; Complete Time: 07:37 EDMS 01/25 21:55 Order name: Throat Culture EDMS 01/25 22:40 Order name: SARS-COV-2 RT PCR; Complete Time: 22:43 EDMS 01/25 22:48 Order name: Manual Differential; Complete Time: 07:37 EDMS Administered Medications: 21:05 Drug: Tylenol 1000 mg Route: PO; ld1 21:15 Follow up: Response: No adverse reaction ld1 Disposition Summary: 01/25/21 22:47 Discharge Ordered Location: Home pkl Problem: new pkl Symptoms: are unchanged pkl Condition: Stable pkl Diagnosis - Positive Covid 19. Upper respiratory infection pkl Followup: pkl - With: Private Physician - When: 2 - 3 days - Reason: Re-evaluation by your physician Discharge Instructions: - Discharge Summary Sheet pkl Forms: - Work release form pkl - Medication Reconciliation Form pkl - Thank You Letter pkl - Antibiotic Education pkl - Prescription Opioid Use pkl Signatures: Dispatcher [employer] EDElieser Walton MD MD pkl April Rose RN RN vg1 Korin Murillo RN RN ld1 Corrections: (The following items were deleted from the chart) 19:50 19:49 Home Meds: Aleve Oral; vg1 vg1 19:50 19:49 PMHx: Myocardial infarction; vg1 vg1 21: 19:34 CORONAVIRUS ordered. EDMS EDMS 22:48 21:37 CBC Smear Scan ordered. EDMS EDMS
[2021-01-25 22:54] LABS: Blood Morphology Comment NOT SEEN (NOT SEEN); Platelet Estimate ADEQ
[2021-01-25 23:15] VITALS: BP 162/89; TEMP 99; O2SAT 97
== END 2021-01-25 23:03 | disposition home or self-care (01) ==
LOC: ER 19:23
DX: U07.1 COVID-19 (principal); J06.9 Acute upper respiratory infection, unspecified; M10.9 Gout, unspecified; E03.9 Hypothyroidism, unspecified; I10 Essential (primary) hypertension
CPT/HCPCS: 87070; 85025; 80048; 36415; 87081; 87804 ×2; 71045; U0003

== ENCOUNTER 2023-04-30 19:26 | Emergency (ER) | payer BC, OTHER ==
--- OUTSIDE RECORDS SUMMARY | 2023-04-30 19:32 | XMS REPORT | Continuity of Care Document ---
:1955 Author Organization [facility] t Address [address] [place] [address] [place] [id number] Care Team Providers Name Role Phone SANTOS GONZALEZ Primary Care Physician Unavailable ANGE RALPH Attending Clinician Unavailable SANTOS GONZALEZ Attending Clinician Unavailable HAI KAISER Attending Clinician Unavailable DEEPAK CHACON Attending Clinician Unavailable DEEPAK CHACON Attending Clinician Unavailable STEPHAN VALERIO Attending Clinician Unavailable STEPHAN VALERIO Attending Clinician Unavailable Santos Pimentel Attending Clinician CHARLES DUGGAN Attending Clinician Unavailable Lexie Bhatt RN Attending Clinician Unavailable HECTOR DIXON Attending Clinician Unavailable HECTOR DIXON Attending Clinician Unavailable Florinda Arroyo DO Attending Clinician Anesthesiology Attending Clinician Unavailable Lab, Ang - Db Attending Clinician Unavailable Doctor Unassigned, [place] Attending Clinician Unavailable CLAUDIA LI Attending Clinician Unavailable AVNI JAMES Attending Clinician Unavailable Avni James MD Attending Clinician AROLDO SANDERSON Attending Clinician Unavailable Nurse, Adc Pob Immunization Attending Clinician Unavailable Aroldo Sanderson DO Attending Clinician AMARJIT ALMAZAN Attending Clinician Unavailable Amarjit Almazan MD Attending Clinician Alina Smith RN Attending Clinician Zoë Oviedo RN Attending Clinician Unavailable Estuardo Mccabe Attending Clinician Marly Johnson MD Attending Clinician Bobby Jensen DO Attending Clinician MARLY JOHNSON Attending Clinician Unavailable Stephanie Medeiros LVN Attending Clinician Patricia Aragon MD Attending Clinician Roger Noble MD Attending Clinician ROGER NOBLE Attending Clinician Unavailable ZOYA ESCALONA Attending Clinician Unavailable Radiology Attending Clinician Unavailable RADIOLOGY Attending Clinician Unavailable Pob1, [facility] Attending Clinician Unavailable Pob, Adc Lab Main Attending Clinician Unavailable Levi Law MD Attending Clinician Clive AUTOMOBILE MECHANIC RADIATOR, Geovanny Diehl Attending Clinician Unavailable Héctor Soliman PT, Tere Attending Clinician Unavailable Ashley Duffy PTA Attending Clinician Unavailable HECTOR DIXON Admitting Clinician Unavailable Marly Johnson MD Admitting Clinician MARLY JOHNSON Admitting Clinician Unavailable Payers Payer Name Policy Type Policy Number Effective Date Expiration Date S [facility] [id number] 2012 EMPLOYEE PLAN 00:00:00 [facility] [id number] 2022 PPO 00:00:00 MEDICARE PART A [id number] 2019 \\T\\ B 00:00:00 Problems Condition Condition Condition Status Onset Resolution Last Treating Co mments Source Name Details Category Date Date Treatment Clinician Date Ischemic Ischemic Disease Active 2022-06 Unive rs stroke stroke 0-20 ity of 00:00: [address] Branch 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 00:00: [address] Branch Weakness Weakness Disease Active Unive rs 9- ity of 00:00: [place] [address] Medical Branch Acquired Acquired Disease Active Unive rs hypothyroi hypothyroi 9- it y of dism dism 00:00: [address] Branch Chronic Chronic Disease Active Univers gout gout 9- ity of without without 00:00: [place] tophus, tophus, 00 Medical unspecifie unspecifie Br anch d cause, d cause, unspecifie unspecifie d site d site Need for Need for Disease Active Unive rs vaccinatio vaccinatio 03-17 it y of n n 00:00: Medical Branch Bilateral Bilateral Disease Active Uni vers impacted impacted 03-17 ity of cerumen cerumen 00:00: Medical Branch Type 2 Type 2 Disease Active Univers diabetes diabetes 02-25 ity of mellitus mellitus 00:00: Medical Branch Essential Essential Disease Active Uni vers hypertensi hypertensi 6- it y of on on 00:00: Medical Branch Primary Primary Disease Active Overview: Univ ers osteoarthr osteoarthr 11-27 Formattin ity of itis of itis of 00:00: g of this [place] right knee right knee 00 note Me dical might be Branch different from the original. Added automatic ally from request for surgery [id number] Obesity Obesity Disease Active Univers (BMI (BMI 9-10 ity of 30-39.9) 30-39.9) 00:00: Medical Branch Total knee Total knee Disease Active U nivers replacemen replacemen - it y of t status t status 00:00: Medical Branch Knee pain Knee pain Disease Active Uni vers 5-10 ity of 00:00: Medical Branch Allergies, Adverse Reactions, Alerts Allergy Allergy Status Severity Reaction(s) Onset Inactive Treating Comm ents Source Name Type Date Date Clinician Sulfa Propensi Active Nausea Univers (Sulfona ty to and/or - ity of mide adverse Vomiting 00:00: [place] Antibiot reaction 00 Medica l ics) s Branch HYDROCOD DRUG Active ITCHING Univers ONE INGREDI 5-27 ity of 00:00: Medical Branch SULFA Drug Active N/V Univers (SULFONA Class 5-27 ity of MIDE 00:00: [place] ANTIBIOT 00 Medical ICS) Branch Hydrocod Propensi Active Swelling When Univ ers one ty to 5-27 given ity of adverse 00:00: Hydrocodo [place] reaction 00 ne in Medical s 9/18, Branch patient's throat started feeling funny. Possible swelling and itching. Social History Social Habit Start Date Stop Date Quantity Comments Source Sexual orientation Univer sity of [facility] History SDOH University o f Alcohol Frequency [facility] edical Branch History SDOH University o f Alcohol Std Drinks [facility] History SDUT University o f Alcohol Binge [place] Medic al Branch Alcohol intake 2023-04-15 2023-04-15 Current drinker Unive rsity of 00:00:00 00:00:00 of alcohol [facility] (finding) [place] Tobacco use and 2023-03-18 2023-03-18 Smokeless tobacco Un iversity of exposure 00:00:00 00:00:00 non-user [facility] Exposure to 2022-09-11 2022-09-21 Not sure University of SARS-CoV-2 (event) 00:00:00 08:30:00 [facility] History of Social 2022-09-19 2022-09-19 Univers ity of function 00:00:00 00:00:00 [facility] Alcohol Comment 2018-03-03 2018-03-03 Occasional Universit y of 00:00:00 00:00:00 drinker [facility] Sex [birth year] Universit y of 00:00:00 00:00:00 [facility] Smoking Status Start Date Stop Date Source Never smoked tobacco [facility] Medications Ordered Filled Start Stop Current Ordering Indication Dosage Frequency Signature Comments Components Source Medication Medication Date Date Medication? Clinician (SIG) Name Name allopurinoL 2022-06 Yes [id number] 100mg Take 1 Univers 100 mg 0-20 tablet by ity of tablet 00:00: mouth in [place] 00 the Medical morning. Branch carvediloL 2022-06 Yes [id number] 6.25mg Take 1 Univers 6.25 mg 0-20 tablet by ity of tablet 00:00: mouth in [place] 00 the Medical morning Branch and 1 tablet in the evening. Take with meals. levothyroxi 2022-06 Yes [id number] 75ug Take 1 Univers ne 75 mcg 0-20 tablet by ity o f tablet 00:00: mouth [place] 00 every Medical morning. Branch blood sugar 2022-06 Yes [id number] Use as Univers diagnostic 0-20 directed ity o f (ONETOUCH 00:00: 2/day. [place] ULTRA TEST) 00 E11.65 Medica l strip Branch lancets 2022-06 Yes [id number] Use as Uni vers (ONETOUCH 0-20 directed ity of DELICA PLUS 00:00: [place] LANCET) 33 00 Medical gauge [facility] Branch semaglutide 2022-06 Yes .25mg inject Univers (OZEMPIC) 0-20 0.25 mg ity of 0.25 mg or 00:00: under the [place] 0.5 mg (2 00 skin Medical mg/3 mL) weekly. Branch PnIj allopurinoL 2022-06 Yes [id number] 100mg Take 1 Univers 100 mg 0-20 tablet by ity of tablet 00:00: mouth in [place] 00 the Medical morning. Branch carvediloL 2022-06 Yes [id number] 6.25mg Take 1 Univers 6.25 mg 0-20 tablet by ity of tablet 00:00: mouth in [place] 00 the Medical morning Branch and 1 tablet in the evening. Take with meals. levothyroxi 2022-06 Yes [id number] 75ug Take 1 Univers ne 75 mcg 0-20 tablet by ity o f tablet 00:00: mouth [place] 00 every Medical morning. Branch blood sugar 2022-06 Yes [id number] Use as Univers diagnostic 0-20 directed ity o f (ONETOUCH 00:00: 2/day. [place] ULTRA TEST) 00 E11.65 Medica l strip Branch lancets 2022-06 Yes [id number] Use as Uni vers (ONETOUCH 0-20 directed ity of DELICA PLUS 00:00: [place] LANCET) 33 00 Medical [facility] Branch semaglutide 2022-06 Yes .25mg inject Univers (OZEMPIC) 0-20 0.25 mg ity of 0.25 mg or 00:00: under the [place] 0.5 mg (2 00 skin Medical mg/3 mL) weekly. Branch PnIj allopurinoL 2022-06 Yes [id number] 100mg Take 1 Univers 100 mg 0-20 tablet by ity of tablet 00:00: mouth in [place] 00 the Medical morning. Branch carvediloL 2022-06 Yes [id number] 6.25mg Take 1 Univers 6.25 mg 0-20 tablet by ity of tablet 00:00: mouth in [place] 00 the Medical morning Branch and 1 tablet in the evening. Take with meals. levothyroxi 2022-06 Yes [id number] 75ug Take 1 Univers ne 75 mcg 0-20 tablet by ity o f tablet 00:00: mouth [place] 00 every Medical morning. Branch blood sugar 2022-06 Yes [id number] Use as Univers diagnostic 0-20 directed ity o f (ONETOUCH 00:00: 2/day. [place] ULTRA TEST) 00 E11.65 Medica l strip Branch lancets 2022-06 Yes [id number] Use as Uni vers (ONETOUCH 0-20 directed ity of DELICA PLUS 00:00: [place] LANCET) 33 Medical gauge [facility] Branch semaglutide 2022-06 Yes [id number] .25mg inject Univers (OZEMPIC) 0-20 0.25 mg ity of 0.25 mg or 00:00: under the [place] 0.5 mg (2 00 skin Medical mg/3 mL) weekly. Branch PnIj allopurinoL 2022-06 Yes [id number] 100mg Take 1 Univers 100 mg 0-20 tablet by ity of tablet 00:00: mouth in [place] 00 the Medical morning. Branch carvediloL 2022-06 Yes [id number] 6.25mg Take 1 Univers 6.25 mg 0-20 tablet by ity of tablet 00:00: mouth in [place] the Medical morning Branch and 1 tablet in the evening. Take with meals. levothyroxi 2022-06 Yes [id number] 75ug Take 1 Univers ne 75 mcg 0-20 tablet by ity o f tablet 00:00: mouth [place] 00 every Medical morning. Branch blood sugar 2022-06 Yes [id number] Use as Univers diagnostic 0-20 directed ity o f (ONETOUCH 00:00: 2/day. [place] ULTRA TEST) 00 E11.65 Medica l strip Branch lancets 2022-06 Yes [id number] Use as Uni vers (ONETOUCH 0-20 directed ity of DELICA PLUS 00:00: [place] LANCET) 33 Medical gauge [facility] Branch allopurinoL 2022-06 Yes [id number] 100mg Take 1 Univers 100 mg 0-20 tablet by ity of tablet 00:00: mouth in [place] 00 the Medical morning. Branch carvediloL 2022-06 Yes [id number] 6.25mg Take 1 Univers 6.25 mg 0-20 tablet by ity of tablet 00:00: mouth in [place] 00 the Medical morning Branch and 1 tablet in the evening. Take with meals. levothyroxi 2022-06 Yes [id number] 75ug Take 1 Univers ne 75 mcg 0-20 tablet by ity o f tablet 00:00: mouth [place] 00 every Medical morning. Branch blood sugar 2022-06 Yes [id number] Use as Univers diagnostic 0-20 directed ity o f (ONETOUCH 00:00: 2/day. [place] ULTRA TEST) 00 E11.65 Medica l strip Branch lancets 2022-06 Yes [id number] Use as Uni vers (ONETOUCH 0-20 directed ity of DELICA PLUS 00:00: [place] LANCET) 33 00 Medical gauge Misc Branch semaglutide 2022-06 Yes [id number] .5mg inject 0.5 Univers (OZEMPIC) 0-20 mg under ity of 0.25 mg or 00:00: the skin [facility] as 0.5 mg (2 00 weekly. Medical mg/3 mL) Branch PnIj ezetimibe 2022-06 Yes [id number] 10mg Take 1 Un aubrie 10 mg 0-20 tablet by ity of tablet 00:00: mouth in [place] 00 the Medical morning. Branch semaglutide 2022-06- No [id number] .25mg inject Univers (OZEMPIC) 0-20 10-20 0.25 mg ity of 0.25 mg or 00:00: 00:00 under the [place] 0.5 mg (2 00 :00 skin Medical mg/3 mL) weekly. Branch PnIj aspirin 81 2022- Yes 81mg Take 1 Univers mg chewable 9-29 12-29 tablet by it y of tablet 00:00: 05:59 mouth in [place] 00 :00 the Medical morning Branch for 90 days. clopidogreL 2022- Yes 75mg Take 1 Univers 75 mg 9-29 12-29 tablet by ity of tablet 00:00: 05:59 mouth in [place] 00 :00 the Medical morning Branch for 90 days. losartan 50 2022- Yes [id number] 50mg Take 1 Univers mg tablet 9- 12- tablet by ity of 00:00: 05:59 mouth in [place] 00 :00 the Medical morning Branch for 90 days. pantoprazol 2022- Yes 40mg Take 1 Univers e 40 mg EC 9- 12- tablet by ity of tablet 00:00: 05:59 mouth in [place] 00 :00 the Medical morning Branch for 90 days. aspirin 81 2022- Yes [id number] 81mg Take 1 Univers mg chewable 9- 12-29 tablet by it y of tablet 00:00: 05:59 mouth in [place] 00 :00 the Medical morning Branch for 90 days. clopidogreL 2022- Yes [id number] 75mg Take 1 Univers 75 mg 9- 12- tablet by ity of tablet 00:00: 05:59 mouth in [place] 00 :00 the Medical morning Branch for 90 days. losartan 50 2022- Yes [id number] 50mg Take 1 Univers mg tablet 03-25- tablet by ity of 00:00: 05:59 mouth in [place] 00 :00 the Medical morning Branch for 90 days. pantoprazol 2022- Yes [id number] 40mg Take 1 Univers e 40 mg EC 03-25- tablet by ity of tablet 00:00: 05:59 mouth in [place] 00 :00 the Medical morning Branch for 90 days. aspirin 81 2022- Yes [id number] 81mg Take 1 Univers mg chewable -24 06- tablet by it y of tablet 00:00: 05:59 mouth in [place] 00 :00 the Medical morning Branch for 90 days. clopidogreL 2022- Yes [id number] 75mg Take 1 Univers 75 mg 9- 12-29 tablet by ity of tablet 00:00: 05:59 mouth in [place] 00 :00 the Medical morning Branch for 90 days. losartan 50 2022- Yes [id number] 50mg Take 1 Univers mg tablet 9- 12-29 tablet by ity of 00:00: 05:59 mouth in [place] 00 :00 the Medical morning Branch for 90 days. pantoprazol 2022- Yes [id number] 40mg Take 1 Univers e 40 mg EC 9- 12-29 tablet by ity of tablet 00:00: 05:59 mouth in [place] 00 :00 the Medical morning Branch for 90 days. aspirin 81 2022- Yes [id number] 81mg Take 1 Univers mg chewable 9- 12- tablet by it y of tablet 00:00: 05:59 mouth in [place] 00 :00 the Medical morning Branch for 90 days. clopidogreL 2022- Yes [id number] 75mg Take 1 Univers 75 mg 9- 12-29 tablet by ity of tablet 00:00: 05:59 mouth in [place] 00 :00 the Medical morning Branch for 90 days. losartan 50 2022- Yes [id number] 50mg Take 1 Univers mg tablet 03-25- tablet by ity of 00:00: 05:59 mouth in [place] 00 :00 the Medical morning Branch for 90 days. pantoprazol 2022- Yes [id number] 40mg Take 1 Univers e 40 mg EC 03-25- tablet by ity of tablet 00:00: 05:59 mouth in [place] 00 :00 the Medical morning Branch for 90 days. aspirin 81 2022- Yes 81mg Take 1 Univers mg chewable -24 06- tablet by it y of tablet 00:00: 05:59 mouth in [place] 00 :00 the Medical morning Branch for 90 days. clopidogreL 2022- Yes [id number] 75mg Take 1 Univers 75 mg 9- 12-29 tablet by ity of tablet 00:00: 05:59 mouth in [place] 00 :00 the Medical morning Branch for 90 days. losartan 50 2022- Yes [id number] 50mg Take 1 Univers mg tablet 9- tablet by ity of 00:00: 05:59 mouth in [place] 00 :00 the Medical morning Branch for 90 days. pantoprazol 2022- Yes [id number] 40mg Take 1 Univers e 40 mg EC -24 06- tablet by ity of tablet 00:00: 05:59 mouth in [place] 00 :00 the Medical morning Branch for 90 days. aspirin 81 2022- Yes [id number] 81mg Take 1 Univers mg chewable 9- 12-29 tablet by it y of tablet 00:00: 05:59 mouth in [place] 00 :00 the Medical morning Branch for 90 days. clopidogreL 2022- Yes [id number] 75mg Take 1 Univers 75 mg 03-25 tablet by ity of tablet 00:00: 05:59 mouth in [place] 00 :00 the Medical morning Branch for 90 days. losartan 50 2022- Yes 50mg Take 1 Univers mg tablet 03-25 tablet by ity of 00:00: 05:59 mouth in [place] 00 :00 the Medical morning Branch for 90 days. pantoprazol 2022- Yes 40mg Take 1 Univers e 40 mg EC 03-25 tablet by ity of tablet 00:00: 05:59 mouth in [place] 00 :00 the Medical morning Branch for 90 days. aspirin 81 2022- Yes 81mg Take 1 Univers mg chewable 03-25 tablet by it y of tablet 00:00: 05:59 mouth in [place] 00 :00 the [facility] morning [place] for 90 days. clopidogreL 2022- Yes 75mg Take 1 Univers 75 mg 03-25 tablet by ity of tablet 00:00: 05:59 mouth in [place] 00 :00 the [facility] morning [place] for 90 days. losartan 50 2022- Yes 50mg Take 1 Univers mg tablet 03-25 tablet by ity of 00:00: 05:59 mouth in [place] 00 :00 the Medical morning Branch for 90 days. pantoprazol 2022- Yes 40mg Take 1 Univers e 40 mg EC 03-25 tablet by ity of tablet 00:00: 05:59 mouth in [place] 00 :00 the [facility] morning [place] for 90 days. barium 2022- No 30mL 30 mL, Uni vers sulfate-NO 03-24 Oral, ity of CHARGE- 13:45: 13:45 ONCE, 1 [place] (VARIBAR 00 :00 dose, On Medical NECTOR) 40 E[place]ie Branch % (w/v) 03/24/23 at oral 0845, suspension Routine 30 mL barium No 30g 30 g, Univ ers sulfate 03-24 Oral, ity of (VARIBAR 13:45: 13:40 ONCE, 1 [place] THIN 00 :00 dose, On Medical LIQUID) 81 [place] Branch % (w/w) 03/24/23 at oral powder 0845, 30 g Routine atorvastati Yes 80mg 80 mg, Univ ers n (LIPITOR) 03-24 Oral, QHS, it y of tablet 80 02:00: First dose [place] mg 00 (after Medical last Branch modificati on) on Tue03/23/23 at 2100, Until Discontinu ed, Routine atorvastati Yes 80mg 80 mg, Univ ers n (LIPITOR) 03-24 Oral, QHS, it y of tablet 80 02:00: First dose [place] mg 00 (after Medical last Branch modificati on) on Tue03/23/23 at 2100, Until Discontinu ed, Routine semaglutide Yes .25mg inject Univers (OZEMPIC) 03-24 0.25 mg ity of 0.25 mg or 00:00: under the [place] 0.5 mg (2 00 skin Medical mg/3 mL) weekly. Branch PnIj semaglutide Yes .25mg inject Univers (OZEMPIC) 03-24 0.25 mg ity of 0.25 mg or 00:00: under the [place] 0.5 mg (2 00 skin Medical mg/3 mL) weekly. Branch PnIj atorvastati 2022- Yes 80mg Take 1 Univers n 80 mg 03-24 tablet by ity of tablet 00:00: 05:59 mouth at [place] 00 :00 bedtime Medical for 90 Branch days. atorvastati 2022- Yes 80mg Take 1 Univers n 80 mg - 12-28 tablet by ity of tablet 00:00: 05:59 mouth at [place] 00 :00 bedtime Medical for 90 Branch days. atorvastati 2022- No 80mg Take 1 Univers n 80 mg 03-24 10-20 tablet by ity of tablet 00:00: 00:00 mouth at [place] 00 :00 bedtime Medical for 90 Branch days. semaglutide No [id number] .25mg inject Univers (OZEMPIC) 03-24 10-20 0.25 mg ity of 0.25 mg or 00:00: 00:00 under the [place] 0.5 mg (2 00 :00 skin Medical mg/3 mL) weekly. Branch PnIj atorvastati 2022- No [id number] 80mg Take 1 Univers n 80 mg 03-24 10-20 tablet by ity of tablet 00:00: 00:00 mouth at [place] 00 :00 bedtime Medical for 90 Branch days. semaglutide 2022- No [id number] .25mg inject Univers (OZEMPIC) 03-24- 0.25 mg ity of 0.25 mg or 00:00: 00:00 under the [place] 0.5 mg (2 00 :00 skin Medical mg/3 mL) weekly. Branch PnIj semaglutide 2022- No [id number] .5mg inject 0.5 Univers (OZEMPIC) 03-24- mg under ity o f 0.25 mg or 00:00: 00:00 the skin [place] 0.5 mg (2 00 :00 weekly for Medi aubrie mg/3 mL) 56 days. Branch PnIj semaglutide 2022- No [id number] .25mg inject Univers (OZEMPIC) 03-23 0.25 mg ity of 0.25 mg or 00:00: 00:00 under the [place] 0.5 mg (2 00 :00 skin Medical mg/3 mL) weekly. Branch PnIj semaglutide 2022- No [id number] .25mg inject Univers (OZEMPIC) 03-23- 0.25 mg ity of 0.25 mg or 00:00: 00:00 under the [place] 0.5 mg (2 00 :00 skin Medical mg/3 mL) weekly. Branch PnIj lactated Yes 1000mL at 75 Univer s ringers IV 9-26 mL/hr, ity of infusion 20:15: 1,000 mL, [place] 1,000 mL 00 IV Medical Infusion, Branch CONTINUOUS , Starting on Tue03/22/23 at 1515, Until Discontinu ed, Routine, PACU lactated 2022-0 Yes 1000mL at 75 Univer s ringers IV 9-26 mL/hr, ity of infusion 20:15: 1,000 mL, [place] 1,000 mL 00 IV Medical Infusion, Branch CONTINUOUS , Starting on Tue03/22/23 at 1515, Until Discontinu ed, Routine, PACU losartan 2022-0 Yes 50mg 50 mg, Univers (COZAAR) 03-21 Oral, ity of tablet 50 15:15: DAILY, [place] mg 00 First dose Medical on Tue [place] 03/21/23 at 1015, Until Discontinu ed, Routine losartan 2022-0 Yes 50mg 50 mg, Univers (COZAAR) 03-21 Oral, ity of tablet 50 15:15: DAILY, [place] mg 00 First dose Medical on Tue [place] 03/21/23 at 1015, Until Discontinu ed, Routine ketorolac 2022-0 202- No 15mg 15 mg, Unive rs (TORADOL) 03-20 Slow IV ity of injection 04:30: 03:37 Push, [place] 15 mg 00 :00 ONCE, 1 Medical dose, On Branch [facility] 03/19/23 at 2330, Routine clopidogreL 2022-0 Yes 75mg 75 mg, Univ ers (PLAVIX) 75 03-19 Oral, ity of mg tablet 14:00: DAILY, [place] 75 mg 00 First dose Medical on [facility] 03/19/23 at 0900, Until Discontinu ed, Routine aspirin 2023-0 Yes 81mg 81 mg, Univers chewable 03-19 Oral, ity of tablet 81 14:00: DAILY, [place] mg 00 First dose Medical on [facility] 03/19/23 at 0900, Until Discontinu ed, Routine clopidogreL 3-0 Yes 75mg 75 mg, Univ ers (PLAVIX) 75 03-19 Oral, ity of mg tablet 14:00: DAILY, [place] 75 mg 00 First dose Medical on [facility] 03/19/23 at 0900, Until Discontinu ed, Routine aspirin 2023-0 Yes 81mg 81 mg, Univers chewable 03-19 Oral, ity of tablet 81 14:00: DAILY, [place] mg 00 First dose Medical on [facility] 03/19/23 at 0900, Until Discontinu ed, Routine carvediloL 2022-0 Yes 6.25mg 6.25 mg, U nivers (COREG) 03-19 Oral, BID ity of tablet 6.25 13:15: MEALS, [place] mg 00 First dose Medical on [facility] 03/19/23 at 0815, Until Discontinu ed, Routine carvediloL 2022-0 Yes 6.25mg 6.25 mg, U nivers (COREG) 03-19 Oral, BID ity of tablet 6.25 13:15: MEALS, [place] mg 00 First dose Medical on [facility] 03/19/23 at 0815, Until Discontinu ed, Routine levothyroxi 2022-0 Yes 75ug 75 mcg, Uni vers ne 03-19 Oral, ity of (SYNTHROID) 11:00: QAM-0600, [place] tablet 75 00 First dose Medi aubrie mcg on [facility] 03/19/23 at 0600, Until Discontinu ed, Routine levothyroxi 0 Yes 75ug 75 mcg, Uni vers ne 03-19 Oral, ity of (SYNTHROID) 11:00: QAM-0600, [place] tablet 75 00 First dose Medi aubrie mcg on [facility] 03/19/23 at 0600, Until Discontinu ed, Routine melatonin 2022-0 Yes 3mg 3 mg, Univers (MELATIN) 03-19 Oral, QHS, ity of tablet 3 mg 02:00: First dose 00 on [facility] 03/18/23 at Branch 2100, Until Discontinu ed, Routine melatonin 2022-0 Yes 3mg 3 mg, Univers (MELATIN) 03-19 Oral, QHS, ity of tablet 3 mg 02:00: First dose 00 on [facility] 03/18/23 at Branch 2100, Until Discontinu ed, Routine atorvastati 2022-0 2022- No 40mg 40 mg, Uni vers n (LIPITOR) 03-19 Oral, QHS, i ty of tablet 40 02:00: 14:45 First dose [place] mg 00 :43 on [facility] 03/18/23 at Branch 2100, Until Discontinu ed, Routine Lidocaine 2022-0 202- No 1{patch 1 Patch, Univers (LIDOCARE) 03-19 } Topical, ity of 4 % patch 1 02:00: 15:47 Administer [place] Patch 00 :00 over 12 Medical Hours, Branch ONCE, 1 dose, On Tue03/18/23 at 2100, Routine ketorolac 2022- No 15mg 15 mg, Unive rs (TORADOL) 03-19 Slow IV ity of injection 02:00: 02:11 Push, [place] 15 mg 00 :00 ONCE, 1 Medical dose, On Branch Tue03/18/23 at 2100, Routine heparin 0 Yes 5000U 5,000 Univers (porcine) 9- Units, ity of injection 01:00: Subcutaneo [place] 5,000 Units 00 us, Q12H, Med ical First dose Branch on Tue03/18/23 at 2000, Until Discontinu ed, Routine heparin 0 Yes 5000U 5,000 Univers (porcine) 9-23 Units, ity of injection 01:00: Subcut[place]o [place] 5,000 Units 00 us, Q12H, Med ical First dose Branch on Tue03/18/23 at 2000, Until Discontinu ed, Routine Sliding 0 Yes Subcutaneo Univ ers Scale 9-22 us, TID ity of Insulin - 22:00: MEALS+HS, [facility] as Lispro 00 First dose Medical (HumaLOG) on Tue Branch 03/18/23 at 1700, Until Discontinu ed, Routine Sliding Yes Subcutaneo Univ ers Scale 9-22 us, TID ity of Insulin - 22:00: MEALS+HS, [place] as Lispro 00 First dose Medical (HumaLOG) on Tue Branch 03/18/23 at 1700, Until Discontinu ed, Routine ondansetron 2022- No 4mg 4 mg, Slow Univers (ZOFRAN 03-18 IV Push, ity of (PF)) 20:00: 19:05 ONCE, On [place] injection 4 00 :00 Fri Medical mg 03/18/23 at Branch 1500, For 1 dose
Do ses of ondansetro n 16 mg and above need to be administer ed via IV piggyback. For Dose >=24mg ECG monitoring is advisable.
dextrose 2022-0 Yes 250mL 250 mL, IV Un aubrie 10% (D10W) 9- Infusion, ity of bolus 19:35: PRN - SEE [place] infusion 56 INSTRUCTIO Medic al 250 mL NS, Branch Administer over 60 Minutes, Other, If blood glucose is < or = 70 mg/dL and patient is unable to swallow or has mental status changes, Starting on Tue03/18/23 at 1435
If blood glucose is < or = 70 mg/dL and patient is unable to swallow or has mental status changes (Give glucagon order if patient needs fluid restrictio n): IF IV access available: Dextrose 10%. 1. 125 mL (? bag) of D10W IV infusion - equivalent to 12.5 g dextrose 2. Blood glucose - draw blood glucose 15 minutes after D10W Administra tion. 3. If blood glucose is < 80 mg/dL, repeat.
dextrose 3-0 Yes 250mL 250 mL, IV Un aubrie 10% (D10W) 03-18 Infusion, ity of bolus 19:35: PRN - SEE [place] infusion 56 INSTRUCTIO Medic al 250 mL NS, Branch Administer over 60 Minutes, Other, If blood glucose is < or = 70 mg/dL and patient is unable to swallow or has mental status changes, Starting on Tue03/18/23 at 1435
If blood glucose is < or = 70 mg/dL and patient is unable to swallow or has mental status changes (Give glucagon order if patient needs fluid restrictio n): IF IV access available: Dextrose 10%. 1. 125 mL (? bag) of D10W IV infusion - equivalent to 12.5 g dextrose 2. Blood glucose - draw blood glucose 15 minutes after D10W Administra tion. 3. If blood glucose is < 80 mg/dL, repeat.
glucagon 2022-0 Yes 1mg 1 mg, [facility] (GLUCAGEN 03-18 Intramuscu ity of DIAGNOSTIC 19:35: [place], [place], [place] KIT) 52 Starting Medical injection 1 on Tue Branch 03/18/23 at 1435, Until Discontinu ed, ANDRES, Blood Glucose < or = 70 mg/dL and patient is NPO, unable to swallow or has mental changes. glucagon 2022-0 Yes 1mg 1 mg, [facility] (GLUCAGEN 03-18 Intramuscu ity of DIAGNOSTIC 19:35: [place], PRN, [place] KIT) 52 Starting Medical injection 1 on Fri Branch mg 03/18/23 at 1435, Until Discontinu ed, ANDRES, Blood Glucose < or = 70 mg/dL and patient is NPO, unable to swallow or has mental changes. pantoprazol 2022-0 Yes 40mg 40 mg, Univ ers e 03-18 Oral, ity of (PROTONIX) 19:15: DAILY, [place] EC tablet 00 First dose Medi aubrie 40 mg on Fri Branch 03/18/23 at 1415, Until Discontinu ed, Routine pantoprazol 2022-0 Yes 40mg 40 mg, Univ ers e 03-18 Oral, ity of (PROTONIX) 19:15: DAILY, [place] EC tablet 00 First dose Medi aubrie 40 mg on Fri Branch 03/18/23 at 1415, Until Discontinu ed, Routine sulfur 2022-0 2022- No [id number] 5mL 5 mL, Unive rs hexafluorid 03-18 Intravenou i ty of e microsphr 17:00: 17:00 s, ONCE, 1 [place] (LUMASON) 00 :00 dose, On Medica l injection 5 Fri Branch mL 03/18/23 at 1200, Routine
[employer] team member approving Restricted medication : MILADY COTTON LORazepam 2022-0 2022- No 1mg 1 mg, Univer s (ATIVAN) 03-18 Oral, ity of tablet 1 mg 17:00: 19:05 ONCE, 1 [place] 00 :00 dose, On Medical Fri Branch 03/18/23 at 1200, Routine acetaminoph 2022-0 Yes 325mg 325 mg, Un aubrie en 03-18 Oral, ity of (TYLENOL) 15:26: Q6HPRN, [place] tablet 325 57 Starting Medic al mg on Fri Branch 03/18/23 at 1026, Until Discontinu ed, Routine, Pain (scale 1-3), Temp > 37.5 C acetaminoph 2022-0 Yes 325mg 325 mg, Un aubrie en 03-18 Oral, ity of (TYLENOL) 15:26: Q6HPRN, [place] tablet 325 57 Starting Medic al mg on Fri Branch 03/18/23 at 1026, Until Discontinu ed, Routine, Pain (scale 1-3), Temp > 37.5 C labetaloL 0 Yes 10mg 10 mg, Univer s (NORMODYNE) 03-18 Slow IV ity o f injection 15:26: Push, [place] 10 mg 06 [id number], 5 Medical doses, Branch Starting on Tue03/18/23 at 1026, Until Discontinu ed, Routine, Hypertensi on SBP> 220 labetaloL 0 Yes 10mg 10 mg, Univer s (NORMODYNE) 03-18 Slow IV ity o f injection 15:26: Push, [place] 10 mg 06 [id number], 5 Medical doses, Branch Starting on Tue03/18/23 at 1026, Until Discontinu ed, Routine, Hypertensi on SBP> 220 aspirin 2022-0 2022- No 324mg 324 mg, Unive rs chewable 03-18 Oral, ity of tablet 324 13:00: 12:20 ONCE, 1 [place] as mg 00 :00 dose, On Medical Fri Branch 03/18/23 at 0800, Routine clopidogreL 0 2022- No 300mg 300 mg, U nivers (PLAVIX) 03-18 Oral, ity of 300 mg 13:00: 12:20 ONCE, 1 [place] tablet 300 00 :00 dose, On Medic al mg Fri Branch 03/18/23 at 0800, Routine iopamidol 0 202- No [id number] 90mL 90 mL, U nivers (ISOVUE 03-18 Intravenou ity o f 370-500 mL) 11:50: 12:15 s, ONCE, 1 [place] injection 00 :00 dose, On Medica l 90 mL Fri Branch 03/18/23 at 0715, Routine NaCl 0.9% 2022-0 Yes 5mL 5 mL, Slow Un aubrie (NS) 03-18 IV Push, ity of injection 5 11:38: PRN - SEE [place] mL 36 INSTRUCTIO Medical NS, Branch Starting on Tue03/18/23 at 0638, Until Discontinu ed, 10 mL NaCl 0.9% 2023-0 Yes 5mL 5 mL, Slow Un aubrie (NS) 9- IV Push, ity of injection 5 11:38: PRN - SEE [place] mL 36 [facility] Medical NS, Branch Starting on Tue03/18/23 at 0638, Until Discontinu ed, 10 mL semaglutide 2021-06 Yes [id number] .25mg inject Univers (OZEMPIC) 2-19 0.25 mg ity of 0.25 mg or 00:00: under the [place] 0.5 mg(2 00 skin Medical mg/1.5 mL) weekly. Branch Ij semaglutide 2021-06 Yes [id number] .25mg inject Univers (OZEMPIC) 2-19 0.25 mg ity of 0.25 mg or 00:00: under the [place] 0.5 mg(2 00 skin Medical mg/1.5 mL) weekly. Branch Ij semaglutide 2021-06 Yes [id number] .25mg inject Univers (OZEMPIC) 2-19 0.25 mg ity of 0.25 mg or 00:00: under the [place] 0.5 mg(2 00 skin Medical mg/1.5 mL) weekly. Branch Ij semaglutide 2021-06 Yes [id number] .25mg inject Univers (OZEMPIC) 2-19 0.25 mg ity of 0.25 mg or 00:00: under the [place] 0.5 mg(2 00 skin Medical mg/1.5 mL) weekly. Branch Ij semaglutide 2021-06 Yes [id number] .25mg inject Univers (OZEMPIC) 2-19 0.25 mg ity of 0.25 mg or 00:00: under the [place] 0.5 mg(2 00 skin Medical mg/1.5 mL) weekly. Branch Ij semaglutide 2021-06 Yes [id number] .25mg inject Univers (OZEMPIC) 2-19 0.25 mg ity of 0.25 mg or 00:00: under the [place] 0.5 mg(2 00 skin Medical mg/1.5 mL) weekly. Branch Ij semaglutide 2021-06 Yes [id number] .25mg inject Univers (OZEMPIC) 2-19 0.25 mg ity of 0.25 mg or 00:00: under the [place] 0.5 mg(2 00 skin Medical mg/1.5 mL) weekly. Branch Stephy semaglutide 2021-06- No [id number] .25mg inject Univers (OZEMPIC) 08-15 0.25 mg ity of 0.25 mg or 00:00: 00:00 under the [place] 0.5 mg(2 00 :00 skin Medical mg/1.5 mL) weekly. Branch Stephy semaglutide 2021-06- No [id number] .25mg inject Univers (OZEMPIC) 08-15 0.25 mg ity of 0.25 mg or 00:00: 00:00 under the [place] 0.5 mg(2 00 :00 skin Medical mg/1.5 mL) weekly. Branch [facility] allopurinoL 2021- No 100mg Take 100 Univers 100 mg 9-21 09-21 mg by ity of tablet 15:30: 00:00 mouth [place] 48 :00 daily. Medical Branch irbesartan 2021-2021- No 300mg Take 300 U nivers 300 mg 9-21 09-21 mg by ity of tablet 15:30: 00:00 mouth at [place] 48 :00 bedtime. Medical Branch allopurinoL 2021-2021- No 100mg Take 100 [facility] 100 mg 9-21 09-21 mg by ity of tablet 15:30: 00:00 mouth [place] 48 :00 daily. [facility] Branch irbesartan 2021-0 2021- No 300mg Take 300 U nivers 300 mg 9-21 09-21 mg by ity of tablet 15:30: 00:00 mouth at [place] 48 :00 bedtime. Medical Branch allopurinoL 2021-0 2- No 100mg Take 100 Univers 100 mg 9-21 09-21 mg by ity of tablet 15:30: 00:00 mouth [place] 48 :00 daily. [facility] Branch irbesartan 2021-0 2021- No 300mg Take 300 U nivers 300 mg 9-21 09-21 mg by ity of tablet 15:30: 00:00 mouth at [place] 48 :00 bedtime. [facility] Branch allopurinoL 2021-0 2- No 100mg Take 100 Univers 100 mg 9-21 09-21 mg by ity of tablet 15:30: 00:00 mouth [place] 48 :00 daily. Medical Branch irbesartan 2021-0 2- No 300mg Take 300 U nivers 300 mg 9-21 09-21 mg by ity of tablet 15:30: 00:00 mouth at [place] 48 :00 bedtime. Medical Branch allopurinoL 2021-0 Yes [id number] 100mg Take 1 [facility] 100 mg 9-21 tablet by ity of tablet 00:00: mouth in [place] 00 the Medical morning. Branch carvediloL 2021-0 Yes [id number] 6.25mg Take 1 [facility] 6.25 mg 9-21 tablet by ity of tablet 00:00: mouth in [place] 00 the Medical morning Branch and 1 tablet in the evening. Take with meals. irbesartan 2021-0 Yes [id number] 300mg Take 1 [facility] 300 mg 9-21 tablet by ity of tablet 00:00: mouth at [place] 00 bedtime. Medical Branch levothyroxi 2021-0 Yes [id number] 75ug Take 1 [facility] ne 75 mcg 9-21 tablet by ity o f tablet 00:00: mouth [place] 00 every Medical morning. Branch allopurinoL 2021-0 Yes [id number] 100mg Take 1 [facility] 100 mg 9-21 tablet by ity of tablet 00:00: mouth in [place] 00 the Medical morning. Branch carvediloL 2021-0 Yes [id number] 6.25mg Take 1 [facility] 6.25 mg 9-21 tablet by ity of tablet 00:00: mouth in [place] 00 the Medical morning Branch and 1 tablet in the evening. Take with meals. irbesartan 2021-0 Yes [id number] 300mg Take 1 [facility] 300 mg 9-21 tablet by ity of tablet 00:00: mouth at [place] 00 bedtime. Medical Branch levothyroxi 2021-0 Yes [id number] 75ug Take 1 [facility] ne 75 mcg 9-21 tablet by ity o f tablet 00:00: mouth [place] 00 every Medical morning. Branch allopurinoL 2021-0 Yes [id number] 100mg Take 1 [facility] 100 mg 9-21 tablet by ity of tablet 00:00: mouth in [place] 00 the Medical morning. Branch carvediloL 2021-0 Yes [id number] 6.25mg Take 1 [facility] 6.25 mg 9-21 tablet by ity of tablet 00:00: mouth in [place] 00 the Medical morning Branch and 1 tablet in the evening. Take with meals. irbesartan 2-0 Yes [id number] 300mg Take 1 [facility] 300 mg 9-21 tablet by ity of tablet 00:00: mouth at [place] [address] bedtime. Medical Branch levothyroxi 2021-0 Yes [id number] 75ug Take 1 [facility] ne 75 mcg 9-21 tablet by ity o f tablet 00:00: mouth [place] 00 every Medical morning. Branch allopurinoL 2021-0 Yes [id number] 100mg Take 1 [facility] 100 mg 9-21 tablet by ity of tablet 00:00: mouth in [place] 00 the Medical morning. Branch carvediloL 2021-0 Yes [id number] 6.25mg Take 1 [facility] 6.25 mg 9-21 tablet by ity of tablet 00:00: mouth in [place] 00 the Medical morning Branch and 1 tablet in the evening. Take with meals. irbesartan 2-0 Yes [id number] 300mg Take 1 [facility] 300 mg 9-21 tablet by ity of tablet 00:00: mouth at [place] [address] bedtime. Medical Branch levothyroxi 2021-0 Yes [id number] 75ug Take 1 [facility] ne 75 mcg 9-21 tablet by ity o f tablet 00:00: mouth [place] 00 every Medical morning. Branch allopurinoL 2021-0 Yes [id number] 100mg Take 1 [facility] 100 mg 9-21 tablet by ity of tablet 00:00: mouth in [place] 00 the Medical morning. Branch carvediloL 2021-0 Yes [id number] 6.25mg Take 1 [facility] 6.25 mg 9-21 tablet by ity of tablet 00:00: mouth in [place] 00 the Medical morning Branch and 1 tablet in the evening. Take with meals. irbesartan 2-0 Yes [id number] 300mg Take 1 [facility] 300 mg 9-21 tablet by ity of tablet 00:00: mouth at [place] [address] bedtime. Medical Branch levothyroxi 2-0 Yes [id number] 75ug Take 1 Univers ne 75 mcg 9-21 tablet by ity o f tablet 00:00: mouth [place] 00 every Medical morning. Branch allopurinoL 2-0 Yes [id number] 100mg Take 1 [facility] 100 mg 9-21 tablet by ity of tablet 00:00: mouth in [place] 00 the Medical morning. Branch carvediloL 2021-0 Yes [id number] 6.25mg Take 1 [facility] 6.25 mg 9-21 tablet by ity of tablet 00:00: mouth in [place] 00 the Medical morning Branch and 1 tablet in the evening. Take with meals. irbesartan 2-0 Yes [id number] 300mg Take 1 [facility] 300 mg 9-21 tablet by ity of tablet 00:00: mouth at [place] [address] bedtime. Medical Branch levothyroxi 2021-0 Yes [id number] 75ug Take 1 Univers ne 75 mcg 9-21 tablet by ity o f tablet 00:00: mouth [place] 00 every Medical morning. Branch allopurinoL 2021-0 Yes [id number] 100mg Take 1 [facility] 100 mg 9-21 tablet by ity of tablet 00:00: mouth in [place] 00 the Medical morning. Branch carvediloL 2021-0 Yes [id number] 6.25mg Take 1 [facility] 6.25 mg 9-21 tablet by ity of tablet 00:00: mouth in [place] the Medical morning Branch and 1 tablet in the evening. Take with meals. irbesartan 2021-0 Yes [id number] 300mg Take 1 [facility] 300 mg 9-21 tablet by ity of tablet 00:00: mouth at [place] [address] bedtime. Medical Branch levothyroxi 2021-0 Yes [id number] 75ug Take 1 [facility] ne 75 mcg 9-21 tablet by ity o f tablet 00:00: mouth [place] 00 every Medical morning. Branch allopurinoL 2021-0 Yes [id number] 100mg Take 1 [facility] 100 mg 9-21 tablet by ity of tablet 00:00: mouth in [place] 00 the Medical morning. Branch carvediloL 2021-0 Yes [id number] 6.25mg Take 1 [facility] 6.25 mg 9-21 tablet by ity of tablet 00:00: mouth in [place] 00 the Medical morning Branch and 1 tablet in the evening. Take with meals. irbesartan 2-0 Yes [id number] 300mg Take 1 [facility] 300 mg 9-21 tablet by ity of tablet 00:00: mouth at [place] [address] bedtime. Medical Branch levothyroxi 2-0 Yes [id number] 75ug Take 1 [facility] ne 75 mcg 9-21 tablet by ity o f tablet 00:00: mouth [place] 00 every Medical morning. Branch allopurinoL 2-0 Yes [id number] 100mg Take 1 [facility] 100 mg 9-21 tablet by ity of tablet 00:00: mouth in [place] 00 the Medical morning. Branch carvediloL 2021-0 Yes [id number] 6.25mg Take 1 [facility] 6.25 mg 9-21 tablet by ity of tablet 00:00: mouth in [place] 00 the Medical morning Branch and 1 tablet in the evening. Take with meals. irbesartan 2-0 Yes [id number] 300mg Take 1 [facility] 300 mg 9-21 tablet by ity of tablet 00:00: mouth at [place] [address] bedtime. Medical Branch levothyroxi 2021-0 Yes [id number] 75ug Take 1 [facility] ne 75 mcg 9-21 tablet by ity o f tablet 00:00: mouth [place] 00 every Medical morning. Branch allopurinoL 2021-0 Yes [id number] 100mg Take 1 [facility] 100 mg 9-21 tablet by ity of tablet 00:00: mouth in [place] 00 the Medical morning. Branch carvediloL 2021-0 Yes [id number] 6.25mg Take 1 [facility] 6.25 mg 9-21 tablet by ity of tablet 00:00: mouth in [place] the Medical morning Branch and 1 tablet in the evening. Take with meals. irbesartan 2-0 Yes [id number] 300mg Take 1 [facility] 300 mg 9-21 tablet by ity of tablet 00:00: mouth at [place] [address] bedtime. Medical Branch levothyroxi 2021-0 Yes [id number] 75ug Take 1 [facility] ne 75 mcg 9-21 tablet by ity o f tablet 00:00: mouth [place] 00 every Medical morning. Branch allopurinoL 2021-0 Yes [id number] 100mg Take 1 [facility] 100 mg 9-21 tablet by ity of tablet 00:00: mouth in [place] 00 the Medical morning. Branch carvediloL 2-0 Yes [id number] 6.25mg Take 1 [facility] 6.25 mg 9-21 tablet by ity of tablet 00:00: mouth in [place] 00 the Medical morning Branch and 1 tablet in the evening. Take with meals. irbesartan 2-0 Yes [id number] 300mg Take 1 [facility] 300 mg 9-21 tablet by ity of tablet 00:00: mouth at [place] [address] bedtime. Medical Branch levothyroxi 2-0 Yes [id number] 75ug Take 1 [facility] ne 75 mcg 9-21 tablet by ity o f tablet 00:00: mouth [place] 00 every Medical morning. Branch allopurinoL 2-0 Yes [id number] 100mg Take 1 [facility] 100 mg 9-21 tablet by ity of tablet 00:00: mouth in [place] 00 the Medical morning. Branch carvediloL 2-0 Yes [id number] 6.25mg Take 1 [facility] 6.25 mg 9-21 tablet by ity of tablet 00:00: mouth in [place] 00 the Medical morning Branch and 1 tablet in the evening. Take with meals. irbesartan 2-0 Yes [id number] 300mg Take 1 [facility] 300 mg 9-21 tablet by ity of tablet 00:00: mouth at [place] [address] bedtime. Medical Branch levothyroxi 2021-0 Yes [id number] 75ug Take 1 [facility] ne 75 mcg 9-21 tablet by ity o f tablet 00:00: mouth [place] 00 every Medical morning. Branch allopurinoL 2-0 Yes [id number] 100mg Take 1 [facility] 100 mg 9-21 tablet by ity of tablet 00:00: mouth in [place] 00 the Medical morning. Branch carvediloL 2021-0 Yes [id number] 6.25mg Take 1 [facility] 6.25 mg 9-21 tablet by ity of tablet 00:00: mouth in [place] 00 the Medical morning Branch and 1 tablet in the evening. Take with meals. irbesartan 2-0 Yes [id number] 300mg Take 1 [facility] 300 mg 9-21 tablet by ity of tablet 00:00: mouth at [place] [address] bedtime. Medical Branch levothyroxi 2-0 Yes [id number] 75ug Take 1 [facility] ne 75 mcg 9-21 tablet by ity o f tablet 00:00: mouth [place] 00 every Medical morning. Branch allopurinoL 2-0 Yes [id number] 100mg Take 1 [facility] 100 mg 9-21 tablet by ity of tablet 00:00: mouth in [place] 00 the Medical morning. Branch carvediloL 2-0 Yes [id number] 6.25mg Take 1 [facility] 6.25 mg 9-21 tablet by ity of tablet 00:00: mouth in [place] 00 the Medical morning Branch and 1 tablet in the evening. Take with meals. irbesartan 2022-0 Yes [id number] 300mg Take 1 [facility] 300 mg 9-21 tablet by ity of tablet 00:00: mouth at [place] [address] bedtime. Medical Branch levothyroxi 2021-0 Yes [id number] 75ug Take 1 [facility] ne 75 mcg 9-21 tablet by ity o f tablet 00:00: mouth [place] 00 every Medical morning. Branch irbesartan 2021-0 Yes [id number] 300mg Take 1 [facility] 300 mg 9-21 tablet by ity of tablet 00:00: mouth at [place] [address] bedtime. Medical Branch irbesartan 2021-0 Yes [id number] 300mg Take 1 [facility] 300 mg 9-21 tablet by ity of tablet 00:00: mouth at [place] [address] bedtime. Medical Branch irbesartan 2021-0 Yes [id number] 300mg Take 1 [facility] 300 mg 9-21 tablet by ity of tablet 00:00: mouth at [place] [address] bedtime. Medical Branch irbesartan 2021-0 Yes [id number] 300mg Take 1 [facility] 300 mg 9-21 tablet by ity of tablet 00:00: mouth at [place] [address] bedtime. Medical Branch irbesartan 0 Yes [id number] 300mg Take 1 [facility] 300 mg 9-21 tablet by ity of tablet 00:00: mouth at [place] [address] bedtime. Medical Branch allopurinoL 2021-2022- No [id number] 100mg Take 1 [facility] 100 mg 9-21 10-20 tablet by ity of tablet 00:00: 00:00 mouth in [place] 00 :00 the Medical morning. Branch carvediloL 2021-2022- No [id number] 6.25mg Take 1 [facility] 6.25 mg 9-21 10-20 tablet by ity of tablet 00:00: 00:00 mouth in [place] 00 :00 the Medical morning Branch and 1 tablet in the evening. Take with meals. levothyroxi 2021-0 2022- No [id number] 75ug Take 1 [facility] ne 75 mcg 9-21 10-20 tablet by ity of tablet 00:00: 00:00 mouth [place] 00 :00 every Medical morning. Branch allopurinoL 2021-3- No [id number] 100mg Take 1 [facility] 100 mg 9-21 10-20 tablet by ity of tablet 00:00: 00:00 mouth in [place] 00 :00 the Medical morning. Branch carvediloL 3- No [id number] 6.25mg Take 1 [facility] 6.25 mg 9-21 10-20 tablet by ity of tablet 00:00: 00:00 mouth in [place] 00 :00 the Medical morning Branch and 1 tablet in the evening. Take with meals. levothyroxi 0 3- No [id number] 75ug Take 1 [facility] ne 75 mcg 9-21 10-20 tablet by ity of tablet 00:00: 00:00 mouth [place] 00 :00 every Medical morning. Branch Blood-Gluco Yes [id number] Use as Univers se Meter 6-15 directed ity of (ONETOUCH 00:00: [place] VERIO 00 Medical METER) Mis Branch blood sugar 0 Yes [id number] Use as Univers diagnostic 6-15 directed ity o f (ONETOUCH 00:00: 2/day. [place] ULTRA TEST) 00 E11.65 Medica l strip Branch lancets 0 Yes [id number] Use as Uni vers (ONETOUCH 6-15 directed ity of DELICA PLUS 00:00: [place] LANCET) 33 00 Medical gauge [facility] Branch semaglutide 0 Yes [id number] .5mg inject 0.5 Univers (OZEMPIC) 6-15 mg under ity of 0.25 mg or 00:00: the skin [facility] as 0.5 mg(2 00 weekly. Medical mg/1.5 mL) Branch PnIj Blood-Gluco Yes [id number] Use as Univers se Meter 6-15 directed ity of (ONETOUCH 00:00: [place] VERIO 00 Medical METER) [facility] Branch blood sugar 0 Yes [id number] Use as Univers diagnostic 6-15 directed ity o f (ONETOUCH 00:00: 2/day. [place] ULTRA TEST) 00 E11.65 Medica l strip Branch lancets 2021-0 Yes [id number] Use as Uni vers (ONETOUCH 6-15 directed ity of DELICA PLUS 00:00: [place] LANCET) 33 00 Medical gauge Misc Branch semaglutide 0 Yes [id number] .5mg inject 0.5 Univers (OZEMPIC) 6-15 mg under ity of 0.25 mg or 00:00: the skin [place] as 0.5 mg(2 00 weekly. Medical mg/1.5 mL) Branch PnIj Blood-Gluco 2021-0 Yes [id number] Use as Univers se Meter 6-15 directed ity of (ONETOUCH 00:00: [place] VERIO 00 Medical METER) Misc Branch blood sugar 2021-0 Yes [id number] Use as [facility] diagnostic 6-15 directed ity o f (ONETOUCH 00:00: 2/day. [place] ULTRA TEST) 00 E11.65 Medica l strip Branch lancets 2021-0 Yes [id number] Use as Uni vers (ONETOUCH 6-15 directed ity of DELICA PLUS 00:00: [place] LANCET) 33 00 Medical gauge Misc Branch semaglutide 2021-0 Yes [id number] .5mg inject 0.5 Univers (OZEMPIC) 6-15 mg under ity of 0.25 mg or 00:00: the skin [place] as 0.5 mg(2 00 weekly. Medical mg/1.5 mL) Branch PnIj Blood-Gluco 2021-0 Yes [id number] Use as Univers se Meter 6-15 directed ity of (ONETOUCH 00:00: [place] VERIO 00 Medical METER) Misc Branch blood sugar 2021-0 Yes [id number] Use as [facility] diagnostic 6-15 directed ity o f (ONETOUCH 00:00: 2/day. [place] ULTRA TEST) 00 E11.65 Medica l strip Branch lancets 2021-0 Yes [id number] Use as Uni vers (ONETOUCH 6-15 directed ity of DELICA PLUS 00:00: [place] LANCET) 33 00 Medical gauge Misc Branch semaglutide 2-0 Yes [id number] .5mg inject 0.5 [facility] (OZEMPIC) 6-15 mg under ity of 0.25 mg or 00:00: the skin [place] as 0.5 mg(2 00 weekly. Medical mg/1.5 mL) Branch PnIj Blood-Gluco 2021-0 Yes [id number] Use as [facility] se Meter 6-15 directed ity of (ONETOUCH 00:00: [place] VERIO 00 Medical METER) Misc Branch blood sugar 2-0 Yes [id number] Use as [facility] diagnostic 6-15 directed ity o f (ONETOUCH 00:00: 2/day. [place] ULTRA TEST) 00 E11.65 Medica l strip Branch lancets 2021-0 Yes [id number] Use as Uni vers (ONETOUCH 6-15 directed ity of DELICA PLUS 00:00: [place] LANCET) 33 00 Medical gauge Misc Branch semaglutide 2021-0 Yes [id number] .5mg inject 0.5 [facility] (OZEMPIC) 6-15 mg under ity of 0.25 mg or 00:00: the skin [place] as 0.5 mg(2 00 weekly. Medical mg/1.5 mL) Branch PnIj Blood-Gluco 2021-0 Yes [id number] Use as Univers se Meter 6-15 directed ity of (ONETOUCH 00:00: [place] VERIO 00 Medical METER) Misc Branch blood sugar 2021-0 Yes [id number] Use as [facility] diagnostic 6-15 directed ity o f (ONETOUCH 00:00: 2/day. [place] ULTRA TEST) 00 E11.65 Medica l strip Branch lancets 2021-0 Yes [id number] Use as Uni vers (ONETOUCH 6-15 directed ity of DELICA PLUS 00:00: [place] LANCET) 33 00 Medical gauge Misc Branch semaglutide 2021-0 Yes [id number] .5mg inject 0.5 Univers (OZEMPIC) 6-15 mg under ity of 0.25 mg or 00:00: the skin [place] as 0.5 mg(2 00 weekly. Medical mg/1.5 mL) Branch PnIj Blood-Gluco 2021-0 Yes [id number] Use as Univers se Meter 6-15 directed ity of (ONETOUCH 00:00: [place] VERIO 00 Medical METER) Misc Branch blood sugar 2021-0 Yes [id number] Use as [facility] diagnostic 6-15 directed ity o f (ONETOUCH 00:00: 2/day. [place] ULTRA TEST) 00 E11.65 Medica l strip Branch lancets 2021-0 Yes [id number] Use as Uni vers (ONETOUCH 6-15 directed ity of DELICA PLUS 00:00: [place] LANCET) 33 00 Medical gauge Misc Branch semaglutide 2021-0 Yes [id number] .5mg inject 0.5 Univers (OZEMPIC) 6-15 mg under ity of 0.25 mg or 00:00: the skin [place] as 0.5 mg(2 00 weekly. Medical mg/1.5 mL) Branch PnIj Blood-Gluco 2021-0 Yes [id number] Use as Univers se Meter 6-15 directed ity of (ONETOUCH 00:00: [place] VERIO 00 Medical METER) Misc Branch blood sugar 2-0 Yes [id number] Use as [facility] diagnostic 6-15 directed ity o f (ONETOUCH 00:00: 2/day. [place] ULTRA TEST) 00 E11.65 Medica l strip Branch lancets 2021-0 Yes [id number] Use as Uni vers (ONETOUCH 6-15 directed ity of DELICA PLUS 00:00: [place] LANCET) 33 00 Medical gauge Misc Branch semaglutide 2021-0 Yes [id number] .5mg inject 0.5 Univers (OZEMPIC) 6-15 mg under ity of 0.25 mg or 00:00: the skin [place] as 0.5 mg(2 00 weekly. Medical mg/1.5 mL) Branch PnIj Blood-Gluco 2021-0 Yes [id number] Use as Univers se Meter 6-15 directed ity of (ONETOUCH 00:00: [place] VERIO 00 Medical METER) Misc Branch blood sugar 2021-0 Yes [id number] Use as [facility] diagnostic 6-15 directed ity o f (ONETOUCH 00:00: 2/day. [place] ULTRA TEST) 00 E11.65 Medica l strip Branch lancets 2021-0 Yes [id number] Use as Uni vers (ONETOUCH 6-15 directed ity of DELICA PLUS 00:00: [place] LANCET) 33 00 Medical gauge Misc Branch semaglutide 2-0 Yes [id number] .5mg inject 0.5 [facility] (OZEMPIC) 6-15 mg under ity of 0.25 mg or 00:00: the skin [facility] as 0.5 mg(2 00 weekly. Medical mg/1.5 mL) Branch PnIj Blood-Gluco 2-0 Yes [id number] Use as Univers se Meter 6-15 directed ity of (ONETOUCH 00:00: [place] VERIO 00 Medical METER) Misc Branch blood sugar 2-0 Yes [id number] Use as [facility] diagnostic 6-15 directed ity o f (ONETOUCH 00:00: 2/day. [place] ULTRA TEST) 00 E11.65 Medica l strip Branch lancets 2-0 Yes [id number] Use as Uni vers (ONETOUCH 6-15 directed ity of DELICA PLUS 00:00: [place] LANCET) 33 00 Medical gauge Misc Branch Blood-Gluco 2022-0 Yes [id number] Use as Univers se Meter 6-15 directed ity of (ONETOUCH 00:00: [place] VERIO 00 Medical METER) Misc Branch blood sugar 2-0 Yes [id number] Use as [facility] diagnostic 6-15 directed ity o f (ONETOUCH 00:00: 2/day. [place] ULTRA TEST) 00 E11.65 Medica l strip Branch lancets 2021-0 Yes [id number] Use as Uni vers (ONETOUCH 6-15 directed ity of DELICA PLUS 00:00: [place] LANCET) 33 00 Medical gauge Misc Branch Blood-Gluco 2021-0 Yes [id number] Use as Univers se Meter 6-15 directed ity of (ONETOUCH 00:00: [place] VERIO 00 Medical METER) Misc Branch blood sugar 2-0 Yes [id number] Use as [facility] diagnostic 6-15 directed ity o f (ONETOUCH 00:00: 2/day. [place] ULTRA TEST) 00 E11.65 Medica l strip Branch lancets 2021-0 Yes [id number] Use as Uni vers (ONETOUCH 6-15 directed ity of DELICA PLUS 00:00: [place] LANCET) 33 00 Medical gauge Misc Branch Blood-Gluco 2021-0 Yes [id number] Use as Univers se Meter 6-15 directed ity of (ONETOUCH 00:00: [place] VERIO 00 Medical METER) Misc Branch blood sugar 2022-0 Yes [id number] Use as [facility] diagnostic 6-15 directed ity o f (ONETOUCH 00:00: 2/day. [place] ULTRA TEST) 00 E11.65 Medica l strip Branch lancets 2-0 Yes [id number] Use as Uni vers (ONETOUCH 6-15 directed ity of DELICA PLUS 00:00: [place] LANCET) 33 00 Medical gauge Misc Branch Blood-Gluco 2022-0 Yes [id number] Use as Univers se Meter 6-15 directed ity of (ONETOUCH 00:00: [place] VERIO 00 Medical METER) Misc Branch blood sugar 2022-0 Yes [id number] Use as [facility] diagnostic 6-15 directed ity o f (ONETOUCH 00:00: 2/day. [place] ULTRA TEST) 00 E11.65 Medica l strip Branch lancets 2022-0 Yes [id number] Use as Uni vers (ONETOUCH 6-15 directed ity of DELICA PLUS 00:00: [place] LANCET) 33 00 Medical gauge Misc Branch Blood-Gluco 2022-0 Yes [id number] Use as Univers se Meter 6-15 directed ity of (ONETOUCH 00:00: [place] VERIO 00 Medical METER) Misc Branch blood sugar 2022-0 Yes [id number] Use as [facility] diagnostic 6-15 directed ity o f (ONETOUCH 00:00: 2/day. [place] ULTRA TEST) 00 E11.65 Medica l strip Branch lancets 2-0 Yes [id number] Use as Uni vers (ONETOUCH 6-15 directed ity of DELICA PLUS 00:00: [place] LANCET) 33 00 Medical gauge Misc Branch Blood-Gluco 2022-0 Yes [id number] Use as Univers se Meter 6-15 directed ity of (ONETOUCH 00:00: [place] VERIO 00 Medical METER) Misc Branch blood sugar 2022-0 Yes [id number] Use as [facility] diagnostic 6-15 directed ity o f (ONETOUCH 00:00: 2/day. [place] ULTRA TEST) 00 E11.65 Medica l strip Branch lancets 2022-0 Yes [id number] Use as Uni vers (ONETOUCH 6-15 directed ity of DELICA PLUS 00:00: [place] LANCET) 33 00 Medical gauge Misc Branch Blood-Gluco 2022-0 Yes [id number] Use as Univers se Meter 6-15 directed ity of (ONETOUCH 00:00: [place] VERIO 00 Medical METER) Misc Branch blood sugar 2022-0 Yes [id number] Use as [facility] diagnostic 6-15 directed ity o f (ONETOUCH 00:00: 2/day. [place] ULTRA TEST) 00 E11.65 Medica l strip Branch lancets 2022-0 Yes [id number] Use as Uni vers (ONETOUCH 6-15 directed ity of DELICA PLUS 00:00: [place] LANCET) 33 00 Medical gauge Misc Branch Blood-Gluco 2022-0 Yes [id number] Use as Univers se Meter 6-15 directed ity of (ONETOUCH 00:00: [place] VERIO 00 Medical METER) Misc Branch blood sugar 2022-0 Yes [id number] Use as [facility] diagnostic 6-15 directed ity o f (ONETOUCH 00:00: 2/day. [place] ULTRA TEST) 00 E11.65 Medica l strip Branch lancets 2022-0 Yes [id number] Use as Uni vers (ONETOUCH 6-15 directed ity of DELICA PLUS 00:00: [place] LANCET) 33 00 Medical gauge Misc Branch Blood-Gluco 2022-0 Yes [id number] Use as Univers se Meter 6-15 directed ity of (ONETOUCH 00:00: [place] VERIO 00 Medical METER) Misc Branch blood sugar 2022-0 Yes [id number] Use as [facility] diagnostic 6-15 directed ity o f (ONETOUCH 00:00: 2/day. [place] ULTRA TEST) 00 E11.65 Medica l strip Branch lancets 2-0 Yes [id number] Use as Uni vers (ONETOUCH 6-15 directed ity of DELICA PLUS 00:00: [place] LANCET) 33 00 Medical gauge Misc Branch Blood-Gluco 2022-0 Yes [id number] Use as Univers se Meter 6-15 directed ity of (ONETOUCH 00:00: [place] VERIO 00 Medical METER) Misc Branch blood sugar 2022-0 Yes [id number] Use as [facility] diagnostic 6-15 directed ity o f (ONETOUCH 00:00: 2/day. [place] ULTRA TEST) 00 E11.65 Medica l strip Branch lancets 2022-0 Yes [id number] Use as Uni vers (ONETOUCH 6-15 directed ity of DELICA PLUS 00:00: [place] LANCET) 33 00 Medical gauge Misc Branch Blood-Gluco 2022-0 Yes [id number] Use as Univers se Meter 6-15 directed ity of (ONETOUCH 00:00: [place] VERIO 00 Medical METER) Misc Branch Blood-Gluco 2022-0 Yes [id number] Use as Univers se Meter 6-15 directed ity of (ONETOUCH 00:00: [place] VERIO 00 Medical METER) Misc Branch Blood-Gluco 2021-0 Yes [id number] Use as Univers se Meter 6-15 directed ity of (ONETOUCH 00:00: [place] VERIO 00 Medical METER) Misc Branch Blood-Gluco 2021-0 Yes [id number] Use as Univers se Meter 6-15 directed ity of (ONETOUCH 00:00: [place] VERIO 00 Medical METER) Misc Branch Blood-Gluco 2021-0 Yes [id number] Use as Univers se Meter 6-15 directed ity of (ONETOUCH 00:00: [place] VERIO 00 Medical METER) Misc Branch blood sugar 2021-0 2022- No [id number] Use as [facility] diagnostic 6-15 10-20 directed ity of (ONETOUCH 00:00: 00:00 2/day. [place] ULTRA TEST) 00 :00 E11.65 Medica l strip Branch lancets 2022- No [id number] Use as Un aubrie (ONETOUCH 6-15 10-20 directed ity o f DELICA PLUS 00:00: 00:00 [place] LANCET) 33 00 :00 Medical gauge Misc Branch blood sugar 2021-0 2022- No [id number] Use as [facility] diagnostic 6-15 10-20 directed ity of (ONETOUCH 00:00: 00:00 2/day. [place] ULTRA TEST) 00 :00 E11.65 Medica l strip Branch lancets 2022- No [id number] Use as Un aubrie (ONETOUCH 6-15 10-20 directed ity o f DELICA PLUS 00:00: 00:00 [place] LANCET) 33 00 :00 Medical gauge Misc Branch semaglutide 2021-0 2021- No [id number] .5mg inject 0.5 Univers (OZEMPIC) 6-15 12-19 mg under ity o f 0.25 mg or 00:00: 00:00 [place] 0.5 mg(2 00 :00 weekly. Medical mg/1.5 mL) Branch PnIj semaglutide 2021- No [id number] .5mg inject 0.5 Univers (OZEMPIC) 6-15 12-19 mg under ity o f 0.25 mg or 00:00: 00:00 [place] 0.5 mg(2 00 :00 weekly. Medical mg/1.5 mL) Branch PnIj methylPREDN 2-0 Yes [id number] 84mg Take 21 Univers ISolone 4-08 9102 tablets by ity of (MEDROL, 00:00: mouth [place] LEFTY,) 4 mg 00 SEE-INSTRU Med ical tablets CTIONS. Branch follow package directions methylPREDN 2022-0 Yes [id number] 84mg Take 21 Univers ISolone 4-08 9102 tablets by ity of (MEDROL, 00:00: mouth [place] LEFTY,) 4 mg 00 SEE-INSTRU Med ical tablets CTIONS. Branch follow package directions methylPREDN 2-0 Yes [id number] 84mg Take 21 [facility] ISolone 4-08 9102 tablets by ity of (MEDROL, 00:00: mouth [place] LEFTY,) 4 mg 00 SEE-INSTRU Med ical tablets CTIONS. Branch follow package directions methylPREDN 2-0 Yes [id number] 84mg Take 21 [facility] ISolone 4-08 9102 tablets by ity of (MEDROL, 00:00: mouth [place] LEFTY,) 4 mg 00 SEE-INSTRU Med ical tablets CTIONS. Branch follow package directions methylPREDN 2-0 Yes [id number] 84mg Take 21 [facility] ISolone 4-08 9102 tablets by ity of (MEDROL, 00:00: mouth [place] LEFTY,) 4 mg 00 SEE-INSTRU Med ical tablets CTIONS. Branch follow package directions methylPREDN 2-0 Yes [id number] 84mg Take 21 [facility] ISolone 4-08 9102 tablets by ity of (MEDROL, 00:00: mouth [place] LEFTY,) 4 mg 00 SEE-INSTRU Med ical tablets CTIONS. Branch follow package directions methylPREDN 2-0 Yes [id number] 84mg Take 21 [facility] ISolone 4-08 9102 tablets by ity of (MEDROL, 00:00: mouth [place] LEFTY,) 4 mg 00 SEE-INSTRU Med ical tablets CTIONS. Branch follow package directions methylPREDN 2-0 Yes [id number] 84mg Take 21 [facility] ISolone 4-08 4109 tablets by ity of (MEDROL, 00:00: mouth [place] LEFTY,) 4 mg 00 SEE-INSTRU Med ical tablets CTIONS. Branch follow package directions methylPREDN 2022-0 Yes [id number] 84mg Take 21 [facility] ISolone 4-08 4109 tablets by ity of (MEDROL, 00:00: mouth [place] LEFTY,) 4 mg 00 SEE-INSTRU Med ical tablets CTIONS. Branch follow package directions methylPREDN 2021- No [id number] 84mg Take 21 [facility] ISolone 4-02 05- 4109 tablets by ity o f (MEDROL, 00:00: 00:00 mouth [place] LEFTY,) 4 mg 00 :00 SEE-INSTRU Med ical tablets CTIONS. Branch follow package directions methylPREDN 2021- No [id number] 84mg Take 21 [facility] ISolone 10-02- 4109 tablets by ity o f (MEDROL, 00:00: 00:00 mouth [place] LEFTY,) 4 mg 00 :00 SEE-INSTRU Med ical tablets CTIONS. Branch follow package directions metformin Yes [id number] 500mg Take 1 Univers ER 500 mg 2-22 tablet by ity o f 24 hr 00:00: mouth [place] tablet 00 daily with Medical breakfast. Branch metformin Yes [id number] 500mg Take 1 Univers ER 500 mg 2-22 tablet by ity o f 24 hr 00:00: mouth [place] tablet 00 daily with Medical breakfast. Branch metformin 2021- No [id number] 500mg Take 1 Univers ER 500 mg 2-03-15 tablet by ity of 24 hr 00:00: 00:00 mouth [place] tablet 00 :00 daily with Medical breakfast. Branch metformin 2021- No [id number] 500mg Take 1 Univers ER 500 mg -03-15 tablet by ity of 24 hr 00:00: 00:00 mouth [place] tablet 00 :00 daily with Medical breakfast. Branch semaglutide 2021- No [id number] .5mg inject 0.5 Univers (OZEMPIC) 2-22 06-15 mg under ity o f 0.25 mg or 00:00: 00:00 [place] 0.5 mg(2 00 :00 weekly. Medical mg/1.5 mL) Branch PnIj irbesartan 2020-06 Yes 300mg Take 300 Un aubrie 300 mg 1-22 mg by ity of tablet 15:06: mouth at [place] [address] bedtime. [facility] irbesartan 2020-06 Yes 300mg Take 300 Un aubrie 300 mg 1-22 mg by ity of tablet 15:06: mouth at [place] [address] bedtime. [facility] Branch irbesartan 2020-06 Yes 300mg Take 300 Un aubrie 300 mg 1-22 mg by ity of tablet 15:06: mouth at [place] [address] bedtime. [facility] Branch allopurinoL 2020-06 Yes 100mg Take 100 U nivers 100 mg 1-22 mg by ity of tablet 15:05: mouth [place] 38 daily. [facility] allopurinoL 2020-06 Yes 100mg Take 100 U nivers 100 mg 1-22 mg by ity of tablet 15:05: mouth [place] 38 daily. [facility] allopurinoL 2020-06 Yes 100mg Take 100 U nivers 100 mg 1-22 mg by ity of tablet 15:05: mouth [place] 38 daily. [facility] Insulin 2020-06 Yes [id number] Use as Uni vers [place], 1- directed ity of Disposable, 00:00: 2-4 times [place] (NOVOFINE 00 daily Medical ) 32 Branch gauge x 1/4" Ndle Insulin 2020-06 Yes [id number] Use as Uni vers [place], 1- directed ity of Disposable, 00:00: 2-4 times [place] (NOVOFINE daily [place] [address]) 32 Branch gauge x 1/4" Ndle Insulin 2020-06 Yes [id number] Use as Uni vers [place], 1-22 directed ity of Disposable, 00:00: 2-4 times [place] (NOVOFINE daily [place] [address]) 32 Branch gauge x 1/4" Ndle Insulin 2020-06 Yes [id number] Use as Uni vers [place], 1-22 directed ity of Disposable, 00:00: 2-4 times [place] (NOVOFINE 00 daily Medical 32) 32 Branch gauge x 1/4" Ndle Insulin 2020-06 Yes [id number] Use as Uni vers [place], 1-22 directed ity of Disposable, 00:00: 2-4 times [place] (NOVOFINE 00 daily Medical 32) 32 Branch gauge x 1/4" Ndle Insulin 2020-06 Yes [id number] Use as Uni vers [place], 1- directed ity of Disposable, 00:00: 2-4 times [place] (NOVOFINE 00 daily Medical 32) 32 Branch gauge x 1/4" Ndle Insulin 2020-06 Yes [id number] Use as Uni vers [place], 1-22 directed ity of Disposable, 00:00: 2-4 times [place] (NOVOFINE 00 daily Medical 32) 32 Branch gauge x 1/4" Ndle Insulin 2020-06 Yes [id number] Use as Uni vers [place], 1-22 directed ity of Disposable, 00:00: 2-4 times [place] (NOVOFINE daily Medical 32) 32 Branch gauge x 1/4" Ndle Insulin 2020-06 Yes [id number] Use as Uni vers [place], - directed ity of Disposable, 00:00: 2-4 times [place] (NOVOFINE daily Medical 32) 32 Branch gauge x 1/4" Ndle Insulin 2020-06 Yes [id number] Use as Uni vers [place], - directed ity of Disposable, 00:00: 2-4 times [place] (NOVOFINE daily Medical ) 32 Branch gauge x 1/4" Ndle Insulin 2020-06 Yes [id number] Use as Uni vers [place], - directed ity of Disposable, 00:00: 2-4 times [place] (NOVOFINE daily Medical 32) 32 Branch gauge x 1/4" Ndle Insulin 2020-06- No [id number] Use as Un aubrie [place], 07-18- directed ity of Disposable, 00:00: 00:00 2-4 times [place] (NOVOFINE 00 :00 daily [place] [address]) 32 Branch gauge x 1/4" Ndle Insulin 2020-06- No [id number] Use as Un aubrie [place], 07-1828 directed ity of Disposable, 00:00: 00:00 2-4 times [place] (NOVOFINE 00 :00 daily [place] [address]) 32 Branch gauge x 1/4" Ndle blood sugar 2020-06- No [id number] Use as Univers diagnostic 07-18 06-15 directed ity of (ONETOUCH 00:00: 00:00 2/day. [place] ULTRA TEST) 00 :00 E11.65 Medica l strip Branch levothyroxi 2020-06 Yes TAKE 1 Univ ers ne 75 mcg 0-26 TABLET BY ity o f tablet 00:00: MOUTH [place] 00 EVERY Medical MORNING ON Branch AN EMPTY STOMACH levothyroxi 2020-06 Yes TAKE 1 Univ ers ne 75 mcg 0-26 TABLET BY ity o f tablet 00:00: MOUTH [place] 00 EVERY Medical MORNING ON Branch AN EMPTY STOMACH levothyroxi 2020-06 Yes TAKE 1 Univ ers ne 75 mcg 0-26 TABLET BY ity o f tablet 00:00: MOUTH [place] 00 EVERY Medical MORNING ON Branch AN EMPTY STOMACH levothyroxi 2020-06- No TAKE 1 Uni vers ne 75 mcg 0-26 09-21 TABLET BY ity of tablet 00:00: 00:00 MOUTH [place] 00 :00 EVERY Medical MORNING ON Branch AN EMPTY STOMACH levothyroxi 2020-06- No TAKE 1 Uni vers ne 75 mcg 0-26 09-21 TABLET BY ity of tablet 00:00: 00:00 MOUTH [place] 00 :00 EVERY Medical MORNING ON Branch AN EMPTY STOMACH levothyroxi 2020-06- No TAKE 1 Uni vers ne 75 mcg 0-26 09-21 TABLET BY ity of tablet 00:00: 00:00 MOUTH [place] 00 :00 EVERY Medical MORNING ON Branch AN EMPTY STOMACH levothyroxi 2020-06- No TAKE 1 Uni vers ne 75 mcg 0-26 09-21 TABLET BY ity of tablet 00:00: 00:00 MOUTH [place] 00 :00 EVERY Medical MORNING ON Branch AN EMPTY STOMACH carvediloL 2020-06 Yes 6.25mg Take 6.25 Univers 6.25 mg 0-25 mg by ity of tablet 00:00: mouth [address] [place] [address] (two) Medical times Branch daily with meals. carvediloL 2020-06 Yes 6.25mg Take 6.25 Univers 6.25 mg 0-25 mg by ity of tablet 00:00: mouth [place] 00 (two) Medical times Branch daily with meals. carvediloL 2020-06 Yes 6.25mg Take 6.25 Univers 6.25 mg 0-25 mg by ity of tablet 00:00: mouth [address] [place] [address] 00 (two) Medical times Branch daily with meals. carvediloL 2020-06- No 6.25mg Take 6.25 Univers 6.25 mg 0-25 09-21 mg by ity of tablet 00:00: 00:00 mouth 2 [place] 00 :00 (two) Medical times [place] daily with meals. carvediloL 2020-06- No 6.25mg Take 6.25 Univers 6.25 mg 0-25 09-21 mg by ity of tablet 00:00: 00:00 mouth 2 [place] 00 :00 (two) Medical times [place] daily with meals. carvediloL 2020-06- No 6.25mg Take 6.25 Univers 6.25 mg 0-25 09-21 mg by ity of tablet 00:00: 00:00 mouth 2 [place] 00 :00 (two) Medical times [place] daily with meals. carvediloL 2020-06- No 6.25mg Take 6.25 Univers 6.25 mg 0-25 09-21 mg by ity of tablet 00:00: 00:00 mouth 2 [place] 00 :00 (two) [facility] daily with meals. Blood 2020-0 Yes [id number] Use as Unive rs Glucose 9-03 directed ity of Strip-Disp 00:00: [place] Meter Kit [facility] Blood 2021-0 Yes [id number] Use as Unive rs Glucose 9-03 directed ity of Strip-Disp 00:00: [place] Meter Kit 00 [facility] Blood 2021-0 Yes [id number] Use as Unive rs Glucose 9-03 directed ity of Strip-Disp 00:00: [place] Meter Kit [facility] Blood 2021-0 Yes [id number] Use as Unive rs Glucose 9-03 directed ity of Strip-Disp 00:00: [place] Meter Kit [facility] Blood 2021-0 Yes [id number] Use as Unive rs Glucose 9-03 directed ity of Strip-Disp 00:00: [place] Meter Kit [facility] Blood 2021-0 Yes [id number] Use as Unive rs Glucose 9-03 directed ity of Strip-Disp 00:00: [place] Meter Kit 00 [facility] Blood 2021-0 Yes [id number] Use as Unive rs Glucose 9-03 directed ity of Strip-Disp 00:00: [place] Meter Kit 00 [facility] Blood 2021-0 Yes [id number] Use as Unive rs Glucose 9-03 directed ity of Strip-Disp 00:00: [place] Meter Kit 00 Medical Branch Blood 2021-0 Yes [id number] Use as Unive rs Glucose 9-03 directed ity of Strip-Disp 00:00: [place] Meter Kit 00 Medical Branch Blood 2021-0 Yes [id number] Use as Unive rs Glucose 9-03 directed ity of Strip-Disp 00:00: [place] Meter Kit 00 Medical Branch Blood 2021-0 Yes [id number] Use as Unive rs Glucose 9-03 directed ity of Strip-Disp 00:00: [place] Meter Kit 00 Medical Branch Blood 2021-0 Yes [id number] Use as Unive rs Glucose 9-03 directed ity of Strip-Disp 00:00: [place] Meter Kit 00 Medical Branch Blood 2021-0 Yes [id number] Use as Unive rs Glucose 9-03 directed ity of Strip-Disp 00:00: [place] Meter Kit 00 Medical Branch Blood 2021-0 Yes [id number] Use as Unive rs Glucose 9-03 directed ity of Strip-Disp 00:00: [place] Meter Kit 00 Medical Branch Blood 2021-0 Yes [id number] Use as Unive rs Glucose 9-03 directed ity of Strip-Disp 00:00: [place] Meter Kit 00 Medical Branch Blood 2021-0 Yes [id number] Use as Unive rs Glucose 9-03 directed ity of Strip-Disp 00:00: [place] Meter Kit 00 Medical Branch Blood 2021-0 Yes [id number] Use as Unive rs Glucose 9-03 directed ity of Strip-Disp 00:00: [place] Meter Kit 00 Medical Branch Blood 2021-0 Yes [id number] Use as Unive rs Glucose 9-03 directed ity of Strip-Disp 00:00: [place] Meter Kit 00 Medical Branch Blood 2021-0 Yes [id number] Use as Unive rs Glucose 9-03 directed ity of Strip-Disp 00:00: [place] Meter Kit 00 Medical Branch Blood 2021-0 Yes [id number] Use as Unive rs Glucose 9-03 directed ity of Strip-Disp 00:00: [place] Meter Kit 00 Medical Branch Blood 2021-0 Yes [id number] Use as Unive rs Glucose 9-03 directed ity of Strip-Disp 00:00: [place] Meter Kit 00 Medical Branch Blood 2021-0 Yes [id number] Use as Unive rs Glucose 9-03 directed ity of Strip-Disp 00:00: [place] Meter Kit 00 Medical Branch Blood 2021-0 Yes [id number] Use as Unive rs Glucose 02-27 directed ity of Strip-Disp 00:00: [place] Meter Kit 00 Medical Branch Blood 2020-0 Yes [id number] Use as Unive rs Glucose 02-27 directed ity of Strip-Disp 00:00: [place] Meter Kit 00 Medical Branch Blood 2020-0 Yes [id number] Use as Unive rs Glucose 02-27 directed ity of Strip-Disp 00:00: [place] Meter Kit Medical Branch Blood-Gluco 0 202- No [id number] Use as Univers se Meter 02-2715 directed ity of (ONETOUCH 00:00: 00:00 [place] VERIO 00 :00 Medical METER) [facility] traMADOL 50 2018-0 Yes 50mg Take 1 Univ ers mg tablet 6-19 tablet by ity o f 00:00: mouth [place] 00 every 6 Medical (six) Branch hours as needed for Pain (scale 4-6) or Pain (scale 7-10). traMADOL 50 2018-0 Yes 50mg Take 1 Univ ers mg tablet 6-19 tablet by ity o f 00:00: mouth [place] 00 every 6 Medical (six) Branch hours as needed for Pain (scale 4-6) or Pain (scale 7-10). traMADOL 50 2018-0 Yes 50mg Take 1 Univ ers mg tablet 6-19 tablet by ity o f 00:00: mouth [place] 00 every 6 Medical (six) Branch hours as needed for Pain (scale 4-6) or Pain (scale 7-10). traMADOL 50 2019-0 Yes 50mg Take 1 Univ ers mg tablet 6-19 tablet by ity o f 00:00: mouth [place] 00 every 6 Medical (six) Branch hours as needed for Pain (scale 4-6) or Pain (scale 7-10). traMADOL 50 2019-0 Yes 50mg Take 1 Univ ers mg tablet 6-19 tablet by ity o f 00:00: mouth [place] 00 every 6 Medical (six) Branch hours as needed for Pain (scale 4-6) or Pain (scale 7-10). traMADOL 50 2019-0 Yes 50mg Take 1 Univ ers mg tablet 6-19 tablet by ity o f 00:00: mouth [place] 00 every 6 Medical (six) Branch hours as needed for Pain (scale 4-6) or Pain (scale 7-10). traMADOL 50 2019-0 Yes 50mg Take 1 Univ ers mg tablet 6-19 tablet by ity o f 00:00: mouth [place] 00 every 6 Medical (six) Branch hours as needed for Pain (scale 4-6) or Pain (scale 7-10). traMADOL 50 2019-0 Yes 50mg Take 1 Univ ers mg tablet 6-19 tablet by ity o f 00:00: mouth [place] 00 every 6 Medical (six) Branch hours as needed for Pain (scale 4-6) or Pain (scale 7-10). traMADOL 50 2019-0 Yes 50mg Take 1 Univ ers mg tablet 6-19 tablet by ity o f 00:00: mouth [place] 00 every 6 Medical (six) Branch hours as needed for Pain (scale 4-6) or Pain (scale 7-10). traMADOL 50 2018-0 2021- No 50mg Take 1 Uni vers mg tablet 6-19 12-19 tablet by ity of 00:00: 00:00 mouth [place] 00 :00 every 6 Medical (six) Branch hours as needed for Pain (scale 4-6) or Pain (scale 7-10). traMADOL 50 2018-0 2021- No 50mg Take 1 Uni vers mg tablet 6-19 12-19 tablet by ity of 00:00: 00:00 mouth [place] 00 :00 every 6 Medical (six) Branch hours as needed for Pain (scale 4-6) or Pain (scale 7-10). Immunizations Ordered Filled Date Status Comments Source Immunization Name Immunization Name SARS-COV-2 COVID-2022-03-17 Completed Unive rsity of VACCINE 18 YRS+, 00:00:00 [place] Me dical BIVALENT 0.5ML, IM, Branc h (MODERNA BOOSTER) SARS-COV-2 COVID-19 2022-03-17 Completed Unive rsity of VACCINE 17 YRS+, 00:00:00 [place] Me dical BIVALENT 0.5ML, IM, Branc h (MODERNA BOOSTER) SARS-COV-2 COVID-19 2022-03-17 Completed Unive rsity of VACCINE 12 YRS+, 00:00:00 [place] Me dical BIVALENT 0.5ML, IM, Branc h (MODERNA BOOSTER) SARS-COV-2 COVID-2022-03-17 Completed Unive rsity of VACCINE 12 YRS+, 00:00:00 [place] Me dical BIVALENT 0.5ML, IM, Branc h (MODERNA BOOSTER) SARS-COV-2 COVID-19 2022-03-17 Completed Unive rsity of VACCINE 12 YRS+, 00:00:00 [place] Me dical BIVALENT 0.5ML, IM, Branc h (MODERNA BOOSTER) SARS-COV-2 COVID-19 2022-03-17 Completed Unive rsity of VACCINE 12 YRS+, 00:00:00 [place] Me dical BIVALENT 0.5ML, IM, Branc h (MODERNA BOOSTER) SARS-COV-2 COVID-19 2022-03-17 Completed Unive rsity of VACCINE 12 YRS+, 00:00:00 [place] Me dical BIVALENT 0.5ML, IM, Branc h (MODERNA BOOSTER) SARS-COV-2 COVID-19 2022-03-17 Completed Unive rsity of VACCINE 12 YRS+, 00:00:00 [place] Me dical BIVALENT 0.5ML, IM, Branc h (MODERNA BOOSTER) SARS-COV-2 COVID-19 2022-03-17 Completed Unive rsity of VACCINE 12 YRS+, 00:00:00 [place] Me dical BIVALENT 0.5ML, IM, Branc h (MODERNA BOOSTER) SARS-COV-2 COVID-19 2022-03-17 Completed Unive rsity of VACCINE 12 YRS+, 00:00:00 [place] Me dical BIVALENT 0.5ML, IM, Branc h (MODERNA BOOSTER) SARS-COV-2 COVID-19 2021-06-26 Completed Unive rsity of MODERNA VACCINE 00:00:00 [place] Med ical Branch SARS-COV-2 COVID-19 2021-06-26 Completed Unive rsity of MODERNA VACCINE 00:00:00 [place] Med ical Branch SARS-COV-2 COVID-19 2021-06-26 Completed Unive rsity of MODERNA 12+ YRS 00:00:00 [place] Med ical VACCINE Branch SARS-COV-2 COVID-19 2021-06-26 Completed Unive rsity of MODERNA 12+ YRS 00:00:00 [facility] ical VACCINE Branch SARS-COV-2 COVID-19 2021-06-26 Completed Unive rsity of MODERNA 12+ YRS 00:00:00 [place] Med ical VACCINE Branch SARS-COV-2 COVID-19 2021-06-26 Completed Unive rsity of MODERNA 12+ YRS 00:00:00 [place] Med ical VACCINE Branch SARS-COV-2 COVID-19 2021-06-26 Completed Unive rsity of MODERNA 12+ YRS 00:00:00 [place] Med ical VACCINE Branch SARS-COV-2 COVID-19 2021-06-26 Completed Unive rsity of MODERNA 12+ YRS 00:00:00 [place] Med ical VACCINE Branch SARS-COV-2 COVID-19 2021-06-26 Completed Unive rsity of MODERNA 12+ YRS 00:00:00 [place] Med ical VACCINE Branch SARS-COV-2 COVID-19 2021-06-26 Completed Unive rsity of MODERNA 12+ YRS 00:00:00 [place] Med ical VACCINE Branch SARS-COV-2 COVID-19 2021-06-26 Completed Unive rsity of MODERNA 12+ YRS 00:00:00 [place] Med ical VACCINE Branch SARS-COV-2 COVID-19 2021-06-26 Completed Unive rsity of MODERNA 12+ YRS 00:00:00 [place] Med ical VACCINE Branch SARS-COV-2 COVID-19 2021-06-26 Completed Unive rsity of MODERNA 12+ YRS 00:00:00 [place] Med ical VACCINE Branch SARS-COV-2 COVID-19 2021-06-26 Completed Unive rsity of MODERNA 12+ YRS 00:00:00 [place] Med ical VACCINE Branch SARS-COV-2 COVID-19 2021-06-26 Completed Unive rsity of MODERNA 12+ YRS 00:00:00 [place] Med ical VACCINE Branch SARS-COV-2 COVID-19 2021-06-26 Completed Unive rsity of MODERNA 12+ YRS 00:00:00 [place] Med ical VACCINE Branch SARS-COV-2 COVID-19 2021-05-29 Completed Unive rsity of MODERNA 0.25ML 00:00:00 [place] Medi aubrie BOOSTER VACCINE Branch SARS-COV-2 COVID-19 2021-05-29 Completed Unive rsity of MODERNA 0.25ML 00:00:00 [place] [facility] BOOSTER VACCINE Branch SARS-COV-2 COVID-19 2021-05-29 Completed Unive rsity of MODERNA 0.25ML 00:00:00 [place] [facility] BOOSTER VACCINE Branch SARS-COV-2 COVID-19 2021-05-29 Completed Unive rsity of MODERNA 0.25ML 00:00:00 [place] [facility] BOOSTER VACCINE Branch SARS-COV-2 COVID-19 2021-05-29 Completed Unive rsity of MODERNA 0.25ML 00:00:00 [place] [facility] BOOSTER VACCINE Branch SARS-COV-2 COVID-19 2021-05-29 Completed Unive rsity of MODERNA 0.25ML 00:00:00 [place] [facility] BOOSTER VACCINE Branch SARS-COV-2 COVID-19 2021-05-29 Completed Unive rsity of MODERNA 0.25ML 00:00:00 [place] [facility] BOOSTER VACCINE Branch SARS-COV-2 COVID-19 2021-05-29 Completed Unive rsity of MODERNA 0.25ML 00:00:00 [place] [facility] BOOSTER VACCINE Branch SARS-COV-2 COVID-19 2021-05-29 Completed Unive rsity of MODERNA 0.25ML 00:00:00 [place] [facility] BOOSTER VACCINE Branch SARS-COV-2 COVID-19 2021-05-29 Completed Unive rsity of MODERNA 0.25ML 00:00:00 [place] [facility] BOOSTER VACCINE Branch SARS-COV-2 COVID-19 2021-05-29 Completed Unive rsity of MODERNA 0.25ML 00:00:00 [place] [facility] BOOSTER VACCINE Branch SARS-COV-2 COVID-19 2021-05-29 Completed Unive rsity of MODERNA 0.25ML 00:00:00 [place] [facility] BOOSTER VACCINE Branch SARS-COV-2 COVID-19 2021-05-29 Completed Unive rsity of MODERNA 0.25ML 00:00:00 [place] [facility] BOOSTER VACCINE Branch SARS-COV-2 COVID-19 2021-05-29 Completed Unive rsity of MODERNA 0.25ML 00:00:00 [place] [facility] BOOSTER VACCINE Branch SARS-COV-2 COVID-19 2021-05-29 Completed Unive rsity of MODERNA 0.25ML 00:00:00 [place] [facility] BOOSTER VACCINE Branch SARS-COV-2 COVID-19 2021-05-29 Completed Unive rsity of MODERNA 0.25ML 00:00:00 [place] [facility] BOOSTER VACCINE Branch TDAP 2018-05-01 Completed University of 00:00:00 [facility] Branch TDAP 2018-05-01 Completed University of 00:00:00 [facility] Branch TDAP 2018-05-01 Completed University of 00:00:00 [facility] Branch TDAP 2018-05-01 Completed University of 00:00:00 [facility] Branch TDAP 2018-05-01 Completed University of 00:00:00 [facility] TDAP 2018-05-01 Completed University of 00:00:00 [facility] TDAP 2018-05-01 Completed University of 00:00:00 [facility] TDAP 2018-05-01 Completed University of 00:00:00 [facility] Branch TDAP 2018-05-01 Completed University of 00:00:00 [facility] TDAP 2018-05-01 Completed University of 00:00:00 [facility] TDAP 2018-05-01 Completed University of 00:00:00 [facility] Branch TDAP 2018-05-01 Completed University of 00:00:00 [facility] Branch TDAP 2018-05-01 Completed University of 00:00:00 [facility] TDAP 2018-05-01 Completed University of 00:00:00 [facility] TDAP 2018-05-01 Completed University of 00:00:00 [facility] TDAP 2018-05-01 Completed University of 00:00:00 [facility] SARS-COV-2 COVID-19 Unknown Completed Unive rsity of MODERNA 0.25ML [facility] aubrie BOOSTER VACCINE Branch SARS-COV-2 COVID-19 Unknown Completed Unive rsity of MODERNA 12+ YRS [place] [facility] VACCINE Branch SARS-COV-2 COVID-19 Unknown Completed Unive rsity of VACCINE 12 YRS+, [place] [facility] BIVALENT 0.5ML, IM, Branc h (MODERNA-BLUE TOP) Influenza Virus Unknown Completed Universit y of Vaccine,quad [place] [facility] Im,preserve Free Branch 65+ (FLUAD) Pneumococcal 20 Unknown Completed Universit y of Conjugate, PCV20 [place] [facility] (Prevnar 20) Branch TDAP Unknown Completed [facility] SARS-COV-2 COVID-19 Unknown Completed Unive rsity of MODERNA 0.25ML [place] [facility] BOOSTER VACCINE Branch SARS-COV-2 COVID-19 Unknown Completed Unive rsity of MODERNA 12+ YRS [place] [facility] VACCINE Branch SARS-COV-2 COVID-19 Unknown Completed Unive rsity of VACCINE 12 YRS+, [place] [facility] BIVALENT 0.5ML, IM, Branc h (MODERNA-BLUE TOP) Influenza Virus Unknown Completed Universit y of Vaccine,quad [place] [facility] Im,preserve Free Branch 65+ (FLUAD) Pneumococcal 20 Unknown Completed Universit y of Conjugate, PCV20 [place] [facility] (Prevnar 20) Branch TDAP Unknown Completed [facility] SARS-COV-2 COVID-19 Unknown Completed Unive rsity of MODERNA 0.25ML [place] [facility] BOOSTER VACCINE Branch SARS-COV-2 COVID-19 Unknown Completed Unive rsity of MODERNA 12+ YRS [place] [facility] VACCINE Branch SARS-COV-2 COVID-19 Unknown Completed Unive rsity of VACCINE 12 YRS+, [place] [facility] BIVALENT 0.5ML, IM, Branc h (MODERNA-BLUE TOP) TDAP Unknown Completed [facility] SARS-COV-2 COVID-19 Unknown Completed Unive rsity of MODERNA 0.25ML [place] [facility] BOOSTER VACCINE Branch SARS-COV-2 COVID-19 Unknown Completed Unive rsity of MODERNA 12+ YRS [place] [facility] VACCINE Branch SARS-COV-2 COVID-19 Unknown Completed Unive rsity of VACCINE 12 YRS+, [place] [facility] BIVALENT 0.5ML, IM, Branc h (MODERNA-BLUE TOP) TDAP Unknown Completed [facility] SARS-COV-2 COVID-19 Unknown Completed Unive rsity of MODERNA 0.25ML [place] [facility] BOOSTER VACCINE Branch SARS-COV-2 COVID-19 Unknown Completed Unive rsity of MODERNA 12+ YRS [place] [facility] VACCINE Branch SARS-COV-2 COVID-19 Unknown Completed Unive rsity of VACCINE 12 YRS+, [place] [facility] BIVALENT 0.5ML, IM, Branc h (MODERNA-BLUE TOP) TDAP Unknown Completed [facility] SARS-COV-2 COVID-19 Unknown Completed Unive rsity of MODERNA 0.25ML [place] [facility] BOOSTER VACCINE Branch SARS-COV-2 COVID-19 Unknown Completed Unive rsity of MODERNA 12+ YRS [place] [facility] VACCINE Branch SARS-COV-2 COVID-19 Unknown Completed Unive rsity of VACCINE 12 YRS+, [place] [facility] BIVALENT 0.5ML, IM, Branc h (MODERNA-BLUE TOP) TDAP Unknown Completed [facility] SARS-COV-2 COVID-19 Unknown Completed Unive rsity of MODERNA 0.25ML [place] [facility] BOOSTER VACCINE Branch SARS-COV-2 COVID-19 Unknown Completed Unive rsity of MODERNA 12+ YRS [place] [facility] VACCINE Branch SARS-COV-2 COVID-19 Unknown Completed Unive rsity of VACCINE 12 YRS+, [place] [facility] BIVALENT 0.5ML, IM, Branc h (MODERNA-BLUE TOP) Influenza Virus Unknown Completed Universit y of Vaccine,quad [place] [facility] Im,preserve Free Branch 65+ (FLUAD) Pneumococcal 20 Unknown Completed Universit y of Conjugate, PCV20 [place] [facility] (Prevnar 20) Branch TDAP Unknown Completed [facility] SARS-COV-2 COVID-19 Unknown Completed Unive rsity of MODERNA 0.25ML [place] [facility] BOOSTER VACCINE Branch SARS-COV-2 COVID-19 Unknown Completed Unive rsity of MODERNA 12+ YRS [place] [facility] VACCINE Branch SARS-COV-2 COVID-19 Unknown Completed Unive rsity of VACCINE 12 YRS+, [place] [facility] BIVALENT 0.5ML, IM, Branc h (MODERNA-BLUE TOP) Influenza Virus Unknown Completed Universit y of Vaccine,quad [place] [facility] Im,preserve Free Branch 65+ (FLUAD) Pneumococcal 20 Unknown Completed Universit y of Conjugate, PCV20 [place] [facility] (Prevnar 20) Branch TDAP Unknown Completed [facility] SARS-COV-2 COVID-19 Unknown Completed Unive rsity of MODERNA 0.25ML [place] [facility] BOOSTER VACCINE Branch SARS-COV-2 COVID-19 Unknown Completed Unive rsity of MODERNA 12+ YRS [place] [facility] VACCINE Branch SARS-COV-2 COVID-19 Unknown Completed Unive rsity of VACCINE 12 YRS+, [place] [facility] BIVALENT 0.5ML, IM, Branc h (MODERNA-BLUE TOP) Influenza Virus Unknown Completed Universit y of Vaccine,quad [place] [facility] Im,preserve Free Branch 65+ (FLUAD) Pneumococcal 20 Unknown Completed Universit y of Conjugate, PCV20 [place] [facility] (Prevnar 20) Branch TDAP Unknown Completed [facility] Vital Signs Vital Name Observation Time Observation Value Comments Source Systolic blood 2023-04-15 16:18:00 130 mm[Hg] Univer sity of pressure [place] [facility] Diastolic blood 2023-04-15 16:18:00 82 mm[Hg] Unive rsity of [facility]UST Heart rate 2023-04-15 16:18:00 79 /min Universi ty of [facility] Body temperature 2023-04-15 16:18:00 36.67 Jaylene [facility] [place] [facility] Body height 2023-04-15 16:18:00 180.3 cm Universi ty of [facility] Body weight 2023-04-15 16:18:00 116.574 kg [facility]i [facility] [place] [facility] BMI 2023-04-15 16:18:00 35.84 kg/m2 Universi ty [facility] [place] [facility] Oxygen saturation in 2023-04-15 16:18:00 96 /min University of Arterial blood by [place] [facility] Pulse oximetry Branch Systolic blood 2023-03-24 16:36:00 133 mm[Hg] Univer sity of pressure [place] [facility] Diastolic blood 2023-03-24 16:36:00 98 mm[Hg] Unive rsity of [facility] Heart rate 2023-03-24 16:36:00 84 /min Universi ty of [place] [facility] Body temperature 2023-03-24 16:36:00 36.44 Jaylene Univ ersity of [facility] Oxygen saturation in 2023-03-24 16:36:00 97 /min University of Arterial blood by [place] [facility] Pulse oximetry Branch Respiratory rate 2023-03-24 13:02:00 17 /min Univ ers[facility] [place] [facility] Body height 2023-03-18 11:38:00 180.3 cm [facility] [place] [facility] Body weight 2023-03-18 11:38:00 118.389 kg [facility]i [facility] [place] [facility] BMI 2023-03-18 11:38:00 36.40 kg/m2 Universi ty of [facility] Systolic blood 2023-03-22 12:32:00 125 mm[Hg] Univer sity of pressure [facility] Branch Diastolic blood 2023-03-22 12:32:00 80 mm[Hg] Unive rsity of pressure [place] [facility] Heart rate 2023-03-22 12:32:00 68 /min [facility]i ty [facility] [place] [facility] Body temperature 2023-03-22 12:32:00 36.56 Jaylene Univ ers[facility] [place] [facility] Oxygen saturation in 2023-03-22 12:32:00 97 /min University of Arterial blood by [place] [facility] Pulse oximetry Branch Respiratory rate 2023-03-22 09:34:00 16 /min Univ ersity [facility] [place] [facility] Body height 2023-03-18 11:38:00 180.3 cm [facility]i [facility] [place] [facility] Body weight 2023-03-18 11:38:00 118.389 kg [facility] [place] [facility] BMI 2023-03-18 11:38:00 36.40 kg/m2 [facility] [place] [facility] Systolic blood 2022-09-21 14:01:00 131 mm[Hg] Univer sity of pressure [place] [facility] Diastolic blood 2022-09-21 14:01:00 77 mm[Hg] Unive rsity of pressure [place] [facility] Heart rate 2022-09-21 14:01:00 70 /min [facility] [place] [facility] Body temperature 2022-09-21 14:01:00 36.72 Jaylene Univ [facility] [place] [facility] Body height 2022-09-21 14:01:00 180.3 cm [facility] [place] [facility] Body weight 2022-09-21 14:01:00 119.296 kg [facility] [place] [facility] BMI 2022-09-21 14:01:00 36.68 kg/m2 [facility] [place] [facility] Oxygen saturation in 2022-09-21 14:01:00 97 /min University of Arterial blood by [place] [facility] Pulse oximetry Branch Systolic blood 2022-06-14 21:01:00 131 mm[Hg] Univer sity of pressure [place] [facility] Diastolic blood 2022-06-14 21:01:00 86 mm[Hg] Unive rsity of pressure [place] [facility] Heart rate 2022-06-14 21:01:00 83 /min [facility] [place] [facility] Body height 2022-06-14 21:01:00 180.3 cm [facility] [place] [facility] Body weight 2022-06-14 21:01:00 119.75 kg [facility] [place] [facility] BMI 2022-06-14 21:01:00 36.82 kg/m2 [facility] [place] [facility] Oxygen saturation in 2022-06-14 21:01:00 97 /min University of Arterial blood by [facility] Pulse oximetry Branch Systolic blood 2022-03-17 20:07:00 127 mm[Hg] Univer sity of pressure [place] [facility] Diastolic blood 2022-03-17 20:07:00 80 mm[Hg] Unive rsity of pressure [place] [facility] Heart rate 2022-03-17 20:07:00 73 /min [facility]i [facility] [place] [facility] Body temperature 2022-03-17 20:07:00 37 Jaylene Univ [facility] [place] [facility] Body height 2022-03-17 20:07:00 180.3 cm [facility] [place] [facility] Body weight 2022-03-17 20:07:00 114.17 kg [facility] [place] [facility] BMI 2022-03-17 20:07:00 35.11 kg/m2 [facility] [place] [facility] Oxygen saturation in 2022-03-17 20:07:00 98 /min University of Arterial blood by [facility] Pulse oximetry Branch Systolic blood 2022-03-15 19:34:00 124 mm[Hg] Univer sity of pressure [place] [facility] Diastolic blood 2022-03-15 19:34:00 72 mm[Hg] Unive rsity of pressure [place] [facility] Heart rate 2022-03-15 19:34:00 87 /min [facility] [place] [facility] Body weight 2022-03-15 19:34:00 115.713 kg [facility] [place] [facility] BMI 2022-03-15 19:34:00 35.58 kg/m2 [facility] [place] [facility] Oxygen saturation in 2022-03-15 19:34:00 97 /min University of Arterial blood by [facility] Pulse oximetry Branch Systolic blood 2021-12-09 18:28:00 125 mm[Hg] Univer sity of pressure [place] [facility] Diastolic blood 2021-12-09 18:28:00 79 mm[Hg] Unive rsity of pressure [place] [facility] Heart rate 2021-12-09 18:28:00 82 /min [facility] Body weight 2021-12-09 18:28:00 107.639 kg [facility] BMI 2021-12-09 18:28:00 33.10 kg/m2 [facility] Oxygen saturation in 2021-12-09 18:28:00 96 /min [facility] blood by [facility] Pulse oximetry Branch Procedures Procedure Date / Time Performing Clinician Source Performed PNEUMOCOCCAL 20 2023-04-15 16:31:45 Lisa [facility] [place] CONJUGATE (PREVNAR ) Medical B ranch VACCINE FLU 2023-04-15 16:31:14 [facility] [place] VACC(),65+YR,0 Medical Branch .5 ML,IM,ADJUVANTED,QUAD(F LUAD) POCT GLUCOSE 2023-03-24 17:47:00 Hector Dixon [facility] (AUTOMATED) Medical Branch [place] MODIFIED BARIUM 2023-03-24 14:00:00 Stephanie Martinez [facility] SWALLOW [facility] Branch POCT GLUCOSE 2023-03-24 13:02:00 Hector Dixon [facility] (AUTOMATED) Medical Branch POCT GLUCOSE 2023-03-24 01:41:00 Hector Dixoneshan [facility] (AUTOMATED) Medical Branch POCT GLUCOSE 2023-03-23 21:54:00 Hector Dixon [facility] (AUTOMATED) Medical Branch POCT GLUCOSE 2023-03-23 16:57:00 Hector Dixon [facility] (AUTOMATED) Medical Branch POCT GLUCOSE 2023-03-23 16:57:00 Hector Dixon [facility] (AUTOMATED) Medical Branch POCT GLUCOSE 2023-03-23 12:53:00 Hector Dixoneshan [facility] (AUTOMATED) Medical Branch POCT GLUCOSE 2023-03-23 12:53:00 Hector Dixon [facility] (AUTOMATED) Medical Branch POCT GLUCOSE 2023-03-23 01:05:00 Hector Dixon [facility] (AUTOMATED) Medical Branch POCT GLUCOSE 2023-03-23 01:05:00 Hector Dixon [facility] (AUTOMATED) Medical Branch POCT GLUCOSE 2023-03-22 22:51:00 Hector Dixon [facility] (AUTOMATED) Medical Branch POCT GLUCOSE 2023-03-22 22:51:00 Hector Dixoneshan [facility] (AUTOMATED) Medical Branch MAGNETIC RESONANCE 2023-03-22 22:17:00 Anesthesiology [facility] IMAGING UNDER Medical Branch ANESTHESIA MAGNETIC RESONANCE 2023-03-22 22:17:00 Anesthesiology [facility] IMAGING UNDER Medical Branch ANESTHESIA POCT GLUCOSE 2023-03-22 21:30:00 Hector Dixon [facility] (AUTOMATED) Medical Branch POCT GLUCOSE 2023-03-22 21:30:00 Hector Dixoneshan [facility] (AUTOMATED) Medical Branch MR CERVICAL SPINE WO 2023-03-22 20:00:00 Nadia Queen [facility] CONTRAST [facility] [place] MR CERVICAL SPINE WO 2023-03-22 20:00:00 Nadia Queen [facility] CONTRAST [facility] MR BRAIN WO CONTRAST 2023-03-22 19:32:00 [place] [facility] MR BRAIN WO CONTRAST 2023-03-22 19:32:00 Nadia Queen [facility] POCT GLUCOSE 2023-03-22 16:47:00 Hector Dixon [facility] (AUTOMATED) Medical Branch POCT GLUCOSE 2023-03-22 16:47:00 Hector Dixon [facility] (AUTOMATED) Medical Branch POCT GLUCOSE 2023-03-22 13:08:00 Hector Dixon [facility] (AUTOMATED) Medical Branch POCT GLUCOSE 2023-03-22 13:08:00 Hector Dixon [facility] (AUTOMATED) Medical Branch POCT GLUCOSE 2023-03-22 00:36:00 Hector Dixoneshan [facility] (AUTOMATED) Medical Branch POCT GLUCOSE 2023-03-22 00:36:00 Hector Dixoneshan [facility] (AUTOMATED) Medical Branch POCT GLUCOSE 2023-03-21 22:11:00 Hector Dixoneshan [facility] (AUTOMATED) Medical Branch POCT GLUCOSE 2023-03-21 22:11:00 [facility] POCT GLUCOSE 2023-03-21 16:45:00 Hector Dixon [facility] (AUTOMATED) Medical Branch POCT GLUCOSE 2023-03-21 16:45:00 Olga Dixonmad [facility] (AUTOMATED) Medical Branch POCT GLUCOSE 2023-03-21 12:47:00 Hector Dixon [facility] (AUTOMATED) Medical Branch POCT GLUCOSE 2023-03-21 12:47:00 Hector Dixon [facility] (AUTOMATED) Medical Branch MAGNESIUM 2023-03-21 09:30:00 Quang Jackson [facility] BASIC METABOLIC PANEL 2023-03-21 09:30:[address] [facility] (NA, K, CL, CO2, Medical Branch GLUCOSE, BUN, CREATININE, CA) CBC WITHOUT DIFF 2023-03-21 09:30:00 Quang Jackson [facility] MAGNESIUM 2023-03-21 09:30:00 Quang Jackson [facility] BASIC METABOLIC PANEL 2023-03-21 09:30:[address] [facility] (NA, K, CL, CO2, Medical Branch GLUCOSE, BUN, CREATININE, CA) CBC WITHOUT DIFF 2023-03-21 09:30:00 Quang Jackson [facility] CT CERVICAL SPINE WO 2023-03-21 05:27:04 Quang Jackson [facility] [place] CONTRAST Medical Branch CT HEAD WO CONTRAST 2023-03-21 05:27:04 Quang Jackson Uni versity of [facility] CT CERVICAL SPINE WO 2023-03-21 05:27:04 Quang Jackson [facility] [place] CONTRAST Medical Branch CT HEAD WO CONTRAST 2023-03-21 05:27:04 [facility] POCT GLUCOSE 2023-03-21 01:01:00 Hector Dixon [facility] (AUTOMATED) Medical Branch POCT GLUCOSE 2023-03-21 01:01:00 Olga Dixonmad [facility] (AUTOMATED) Medical Branch POCT GLUCOSE 2023-03-20 22:13:00 Olga Dixonmad [facility] (AUTOMATED) Medical Branch POCT GLUCOSE 2023-03-20 22:13:00 David Leo [facility] (AUTOMATED) Medical Branch POCT GLUCOSE 2023-03-20 17:14:00 David Leo [facility] (AUTOMATED) Medical Branch POCT GLUCOSE 2023-03-20 17:14:00 David Leo [facility] (AUTOMATED) Medical Branch POCT GLUCOSE 2023-03-20 13:04:00 David Leo [facility] (AUTOMATED) Medical Branch POCT GLUCOSE 2023-03-20 13:04:00 David Leo [facility] (AUTOMATED) Medical Branch MAGNESIUM 2023-03-20 10:13:00 Quang Jackson [facility] THYROID STIMULATING 2023-03-20 10:13:00 Nadia Queen [facility] HORMONE [facility] BASIC METABOLIC PANEL 2023-03-20 10:13:[address] [facility] (NA, K, CL, CO2, Medical Branch GLUCOSE, BUN, CREATININE, CA) CBC WITHOUT DIFF 2023-03-20 10:13:00 Quang Jackson [facility] Medical Branch MAGNESIUM 2023-03-20 10:13:00 Quang Jackson [facility] THYROID STIMULATING 2023-03-20 10:13:00 [facility] BASIC METABOLIC PANEL 2023-03-20 10:13:[address] [facility] (NA, K, CL, CO2, Medical Branch GLUCOSE, BUN, CREATININE, CA) CBC WITHOUT DIFF 2023-03-20 10:13:00 Quang Jackson [facility] POCT GLUCOSE 2023-03-20 01:25:00 Hector Dixoneshan [facility] (AUTOMATED) Medical Branch POCT GLUCOSE 2023-03-20 01:25:00 Hector Dixoneshan [facility] (AUTOMATED) Medical Branch POCT GLUCOSE 2023-03-19 22:17:00 Olga Dixonmad [facility] (AUTOMATED) Medical Branch POCT GLUCOSE 2023-03-19 22:17:00 Hector Dixon [facility] (AUTOMATED) Medical Branch POCT GLUCOSE 2023-03-19 18:10:00 Hector Dixon Dejan [facility] (AUTOMATED) Medical Branch POCT GLUCOSE 2023-03-19 18:10:00 Hector Dixon [facility] (AUTOMATED) Medical Branch POCT GLUCOSE 2023-03-19 15:16:00 Hector Dixon Dejan [facility] (AUTOMATED) Medical Branch POCT GLUCOSE 2023-03-19 15:16:00 Hector Dixon Dejan [facility] (AUTOMATED) Medical Branch POCT GLUCOSE 2023-03-19 13:12:00 Hector Dixoneshan [facility] (AUTOMATED) Medical Branch POCT GLUCOSE 2023-03-19 13:12:00 Hector Dixoneshan [facility] (AUTOMATED) Medical Branch POCT GLUCOSE 2023-03-19 01:03:00 Hector Dixoneshan [facility] (AUTOMATED) Medical Branch POCT GLUCOSE 2023-03-19 01:03:00 DavidHector [facility] (AUTOMATED) Medical Branch POCT GLUCOSE 2023-03-18 21:46:00 David Leo [facility] (AUTOMATED) Medical Branch POCT GLUCOSE 2023-03-18 21:46:00 David Leo [facility] (AUTOMATED) Medical Branch CT HEAD WO CONTRAST 2023-03-18 17:43:18 Nadia Queen [facility] CT HEAD WO CONTRAST 2023-03-18 17:43:18 Nadia Queen [facility] TRANSTHORACIC ECHO 2023-03-18 16:58:37 [facility] CONTRAST TRANSTHORACIC ECHO 2023-03-18 16:58:37 [facility]/ [facility] CONTRAST HB ECG ROUTINE & RHYTHM 2023-03-18 12:08:13 Florinda Arroyo [facility] [place] STRIP [facility] HB ECG ROUTINE & RHYTHM 2023-03-18 12:08:13 [facility]GIO[facility] 2023-03-18 12:01:58 Florinda Arroyo [facility] [place] HEAD Medical Branch CT STROKE ANGIOGRAM 2023-03-18 12:01:58 Florinda Arroyo [facility] [place] NECK Medical Branch CT STROKE ANGIOGRAM 2023-03-18 12:01:58 Florinda Arroyo [facility] [place] HEAD Medical Branch CT STROKE ANGIOGRAM 2023-03-18 12:01:58 Florinda Arroyo [facility] [place] NECK Medical Branch CT STROKE HEAD WO 2023-03-18 11:57:52 Florinda Arroyo [facility] of [place] CONTRAST Medical Branch CT STROKE HEAD WO 2023-03-18 11:57:52 Florinda Arroyo [facility] TROPONIN I 2023-03-18 11:42:00 Florinda Arroyo [facility] BASIC METABOLIC PANEL 2023-03-18 11:42:00 Florinda Arroyo [facility] (NA, K, CL, CO2, Medical Branch GLUCOSE, BUN, CREATININE, CA) LIPID PANEL 2023-03-18 11:42:00 Nadia Queen [facility] ([id number])(TOTAL [facility] CHOLESTEROL, TRIGLYCERIDES, HDL) CBC WITHOUT DIFF 2023-03-18 11:42:00 Florinda Arroyo [facility] GLYCOSYLATED HEMOGLOBIN 2023-03-18 11:42:00 Nadia Queen luisito [facility] (A1C) [facility] PROTHROMBIN TIME / INR 2023-03-18 11:42:00 Florinda Arroyo [facility] ACTIVATED PARTIAL 2023-03-18 11:42:00 Florinda Arroyo [facility] TROPONIN I 2023-03-18 11:42:00 Florinda Arroyo [facility] BASIC METABOLIC PANEL 2023-03-18 11:42:00 Florinda Arroyo [facility] (NA, K, CL, CO2, Medical Branch GLUCOSE, BUN, CREATININE, CA) LIPID PANEL 2023-03-18 11:42:00 Nadia Queen [facility] ([id number])(TOTAL [facility] CHOLESTEROL, TRIGLYCERIDES, HDL) CBC WITHOUT DIFF 2023-03-18 11:42:00 Florinda [facility]royo [facility] [facility] GLYCOSYLATED HEMOGLOBIN 2023-03-18 11:42:00 Nadia Queen luisito [facility] (A1C) [facility] PROTHROMBIN TIME / INR 2023-03-18 11:42:00 Florinda Arroyo Un [facility] ACTIVATED PARTIAL 2023-03-18 11:42:00 Florinda Arroyo [facility] CONSENT/REFUSAL FOR 2023-03-18 11:30:15 Doctor Unassigned, No [facility] DIAGNOSIS AND TREATMENT Name Medical Branch CONSENT/REFUSAL FOR 2023-03-18 11:30:15 Doctor Unassigned, No [facility] [place] [facility] Name [facility] AUTHORIZATION TO 2022-09-21 05:01:00 Doctor Unassigned, No Unive rsity [facility] RELEASE PHI TO [facility] Name Medical John POCT HEMOGLOBIN A1C 2022-06-14 21:04:00 Deepak Chacon [facility] CONSENT/REFUSAL FOR 2022-06-14 20:38:40 Doctor Unassigned, No [facility] [place] DIAGNOS[facility] TREATMENT Name [facility] SARS-COV-2 COVID-19 2022-03-17 20:30:43 Santos Gonzalez [facility] VACCINE 18 YRS+, [facility] BIVALENT 0.5ML, IM (MODERNA BOOSTER) AUTHORIZATION TO 2022-03-16 05:01:00 Doctor Unassigned, No [facility] Name Medical [facility] POCT HEMOGLOBIN A1C 2022-03-15 19:44:00 Deepak Chacon [facility] POCT HEMOGLOBIN A1C 2021-12-09 18:35:00 Deepak Chacon [facility] DIABETES TESTING 2021-12-09 05:01:00 Doctor Unassigned, No [facility] Name [facility] Encounters Start End Encounter Admission Attending Care Care Encounter Source Date/Time Date/Time Type Type Clinicians Facility Department ID 2021-04-27 Emergency [facility] [id number] Univers 19:45:11 yaneli [facility] 2023-07-26 2023-07-26 Outpatient R RAMO [facility] [id number] Univers 15:30:00 15:30:00 ANGE groves [facility] 2023-06-15 2023-06-15 Outpatient R LISA [facility] [id number] Univers 11:00:00 11:00:00 SANTOS groves [facility] 2023-04-19 2023-04-19 Telephone Lisa WYALFONSO [id number] Univers 00:00:00 00:00:00 Santos [facility] 350.1.13.10 it y of [place] 4.2.7.2.686 [place] as DEANNA?BLEA [phone] [address] MEDICAL OFFICE [facility] 2023-04-15 2023-04-15 Outpatient R DUGGAN [facility] [id number] Univers 16:00:00 16:00:00 CHARLES itevelyn [facility] 2023-04-15 2023-04-15 Office Lisa [facility] 1.2.840.114 [id number] Univers 11:00:00 12:20:26 Visit Santos HEALTH 350.1.13.10 it y of [place] 4.2.7.2.686 [place] DEANNA?BLEA [id number] [address] OFFICE [facility] 2023-04-15 2023-04-15 Patient Lisa [facility] 1.2.840.114 [id number] Univers 00:00:00 00:00:00 Secure Msg Santos [employer] 350.1.13.10 ity of [place] 4.2.7.2.686 [place] as DEANNA?BLEA [phone] [address] OFFICE [facility] 2023-03-25 2023-03-25 Transition BRITTANY Bhatt 1.2.840.114 [id number] Univers 00:00:00 00:00:00 of Care Lexie WILLSON 350.1.13.10 [place] [phone] [facility] [address] 2023-03-18 2023-03-24 Inpatient X HECTOR DIXON [facility] SURYA [id number] Univers 06:44:00 13:30:00 HECTOR DIXON ity [facility] 2023-03-18 2023-03-24 Hospital Florinda Arroyo 1.2.84 0.114 [id number] Univers 06:44:00 13:30:00 Encounter Hector Dixon 350. 1.13.10 ity of [facility] 4.2.7.2.686 [place] as [phone] [facility] [address] 2023-03-22 2023-03-22 Surgery Anesthesiol HARISH 1.2.840.114 [id number] Univers 09:17:00 10:17:00 ogy JOSE ANTONIO 350.1.13.10 it y of HOSPITAL 4.2.7.2.686 [place] as [phone] [facility] [address] 2022-09-27 2022-09-27 Telephone Lisa [facility] 1.2.365.265 [id number] Univers 00:00:00 00:00:00 Santos HEALTH 350.1.13.10 it [facility] 4.2.7.2.686 [place] DEANNA?BLEA [phone] [facility] [address] MEDICAL OFFICE [facility] 2022-09-21 2022-09-21 Informatica Mdm Architect Lab, Ang - Db [facility] 1.2.840.1 14 [id number] Univers 09:45:00 10:00:00 Visit Santos Gonzalez 350.1.13.10 ity of [place] 4.2.7.2.686 [place] as DEANNA?BLEA [id number] [facility] [address] [place] OFFICE [facility] 2022-09-21 2022-09-21 [facility] [id number] Univers 09:45:00 09:45:00 SANTOS ity of [facility] 2022-09-21 2022-09-21 [facility] 1.2.840.114 [id number] Univers 09:00:00 09:37:40 Visit Santos DONG 350.1.13.10 it y of [place] 4.2.7.2.686 [place] as DEANNA?BLEA [id number] [address] MEDICAL OFFICE [facility] 2022-09-21 2022-09-21 Orders Doctor MILLY 1.2.840.114 [id number] Univers 00:00:00 00:00:00 Only Unassigned, JOSE ANTONIO 350.1.13.10 ity of [place] [facility] 4.2.7.2.686 [place] as [phone] [facility] [address] 2022-09-14 2022-09-14 Patient Doctor MILLY 1.2.840.114 [id number] Univers 00:00:00 00:00:00 Secure Msg Unassigned, JOSE ANTONIO 350.1.13.10 ity of [place] [facility] 4.2.7.2.686 [place] as [phone] [facility] [address] 2022-06-14 2022-06-14 Outpatient R DEEPKA CHACON [facility] [id number] Univers 15:00:00 15:54:51 DEEPAK CHACON [facility] 2022-06-14 2022-06-14 Office Deepak Chacon [facility] 1.2.840.114 [id number] Univers 15:00:00 15:54:51 Visit HEALTH 350.1.13.10 it y [facility] 4.2.7.2.686 [place] DEANNA?BLEA [id number] [facility] [address] MEDICAL OFFICE [facility] 2022-06-14 2022-06-14 Orders Doctor MILLY 1.2.840.114 [id number] Univers 00:00:00 00:00:00 Only Unassigned, JOSE ANTONIO 350.1.13.10 ity of [place] [facility] 4.2.7.2.686 [place] as [phone] [address] 2022-03-17 2022-03-17 Outpatient R LISA [facility] [id number] Univers 15:00:00 16:50:30 SANTOS groves [facility] 2022-03-17 2022-03-17 [facility] 1.2.840.114 [id number] Univers 15:00:00 15:30:00 Visit Santos HEALTH 350.1.13.10 it y [facility] 4.2.7.2.686 [place] as DEANNA?BLEA [id number] [facility] [address] MEDICAL OFFICE BUILDING 2022-03-16 2022-03-16 Orders Doctor MILLY 1.2.840.114 [id number] Univers 00:00:00 00:00:00 Only Unassigned, JOSE ANTONIO 350.1.13.10 ity of [place] [facility] 4.2.7.2.686 [place] as [phone] [address] 2022-03-15 2022-03-15 Informatica Mdm Architect Lab, Ang - [facility] 1.2.840.1 14 [id number] Univers 15:30:00 15:45:00 Visit Deepak Chacon 350.1.13.10 it y of [place] 4.2.7.2.686 [place] DEANNA?BLEA [phone] Sc tiara [facility] [address] MEDICAL OFFICE BUILDING 2022-03-15 2022-03-15 Outpatient R DEEPAK CHACON [facility] [id number] Univers 14:30:00 15:16:17 DEEPAK CHACON evelyn [facility] 2022-03-15 2022-03-15 Office Oswaldo [facility] 1.2.840.114 [id number] Univers 14:30:00 15:16:17 Visit HEALTH 350.1.13.10 it y of [place] 4.2.7.2.686 [place] DEANNA?BLEA [phone] [facility] [address] MEDICAL OFFICE [facility] 2021-12-09 2021-12-09 Outpatient R OSWALDO [facility] [id number] Univers 13:30:00 14:18:54 DEEPAK CHACON evelyn [facility] 2021-12-09 2021-12-09 Outpatient R OSWALDO [facility] [id number] Univers 13:30:00 14:18:54 DEEPAK CHACON [facility] 2021-12-09 2021-12-09 Office Oswaldo [facility] 1.2.840.114 [id number] Univers 13:30:00 14:18:54 Visit HEALTH 350.1.13.10 it y of [place] 4.2.7.2.686 [place] as DEANNA?BLEA [phone] [address] OFFICE [facility] 2021-12-09 2021-12-09 Orders Doctor ATKINS 1.2.840.114 [id number] Univers 00:00:00 00:00:00 Only Unassigned, JOSE ANTONIO 350.1.13.10 ity of [place] [facility] 4.2.7.2.686 [place] as [id number] [address] 2021-12-08 2021-12-08 [facility] [id number] Univers 16:00:00 16:00:00 CLAUDIA [facility] 2021-12-01 2021-12-01 Outpatient R [facility] [id number] Univers 07:30:00 07:30:00 itevelyn [facility] 2021-10-02 2021-10-02 Outpatient R JACOB [facility] [id number] Univers 10:45:00 23:59:00 AVNI [facility] 2021-10-02 2021-10-02 [facility] 1.2.601.772 [id number] Univers 10:15:00 11:58:55 [facility] 350.1.13.10 it y [facility] 4.2.7.2.686 [place] DEANNA?BLEA [id number] Sc dical KNEY [address] MEDICAL OFFICE BUILDING 2021-10-02 2021-10-02 Outpatient R JACOB [facility] [id number] Univers 10:15:00 11:58:55 [facility] 2021-08-18 2021-08-18 Outpatient R JEN [facility] [id number] Univers 14:30:00 15:25:00 CLAUDIA [facility] 2021-08-11 2021-08-11 Outpatient R [facility] [id number] Univers 08:30:00 08:30:00 [facility] 2021-06-26 2021-06-26 Outpatient R MARIA E [facility] [id number] Univers 09:00:00 09:00:00 AROLDO evelyn [facility] 2021-06-26 2021-06-26 Imm/Inj Nurse, Adc Pob Immunization [facility] 1.2.840.114 [id number] Univers 09:00:00 09:00:00 Visit Aroldo Sanderson 350.1.13 .10 ity [facility] [place] [phone] Sc dickameron UMANZOR [address] [facility] 2021-06-26 2021-06-26 Outpatient R MARIA E [facility] [id number] Univers 09:00:00 08:54:30 AROLDO [facility] 2021-05-18 2021-05-18 Outpatient R NORAH [facility] [id number] Univers 15:00:00 16:35:50 AMARJIT reedy [facility] 2021-05-18 2021-05-18 Outpatient R NORAH [facility] [id number] Univers 15:00:00 16:35:50 AMARJIT ity [facility] 2021-05-18 2021-05-18 Office Norah [facility] 1.2.840.114 [id number] Univers 14:45:05 16:35:50 Visit [facility] 350.1.13.10 it y of [place] 4.2.7.2.686 [place] as DEANNA?BLEA [phone] Sc dical [address] MEDICAL OFFICE BUILDING 2021-05-18 2021-05-18 Orders Doctor MILLY 1.2.840.114 [id number] Univers 00:00:00 00:00:00 Only Unassigned, JOSE ANTONIO 350.1.13.10 ity of [place] [facility] 4.2.7.2.686 [place] as [phone] [facility] [address] 2021-03-23 2021-03-23 Patient Alina Smith 1.2.840.114 [id number] Univers 00:00:00 00:00:00 Outreach E Willson 350.1.13.10 i ty of [place] [phone] [facility] [address] 2021-03-03 2021-03-03 Transition Renetta Oviedoshaila 1.2.840.114 [id number] Univers 00:00:00 00:00:00 of Care Zoë Rendony 350.1.13.10 i ty of [place] [phone] [facility] [address] 2021-02-25 2021-02-27 Hospital Carolyn Estuardo [facility] 1.2.840.11 [id number] Univers 16:15:00 18:11:00 Encounter Marly Johnson 350.1.13.10 ity of [place] 4.2.7.2.686 [facility] [phone] [facility] [address] 2021-02-25 2021-02-27 [facility] [id number] Univers 16:15:00 18:11:00 MARLY ity of [facility] 2021-02-27 2021-02-27 Transition Brittany Medeiros 1.2.840.114 [id number] Univers 00:00:00 00:00:00 of Care Stephanie Rendony 350.1.13.10 [place] of [place] [phone] [facility] [address] 2020-09-01 2020-09-01 Office [facility] 1.2.840.114 [id number] 14:22:50 16:37:07 Visit Patricia CHAUHANPEC 350.1.13.10 IAL[place] 4.2.7.2.686 CENTER [id number] AND [facility] DIABETES CLINIC 2020-09-01 2020-09-01 Office [facility] 1. 2.840.114 [id number] Univers 14:22:50 16:37:07 Visit Roger NoblePEC 350.1.13.1 0 [place] [phone] [facility] AND [address] DIABETES CLINIC 2020-09-01 2020-09-01 Outpatient R FAUSTINO [facility] [id number] Univers 14:45:00 14:45:00 ROGER groves of [facility] 2020-01-16 2020-01-16 Outpatient R IQRA [facility] [id number] Univers 09:40:00 09:40:00 ZOYA groves o f [facility] 2019-11-16 2019-11-16 Hospital Radiology [facility] 1.2.840.114 [id number] Univers 12:09:00 23:59:00 Encounter Y HEALTH 350.1.13.10 ity of CL[place] [phone] [facility] [address] 2019-11-16 2019-11-16 Outpatient R RADIOLOGY [facility] [id number] Univers 12:09:30 12:09:30 ity of [facility] 2019-11-09 2019-11-09 Telephone Pob1, Acute [facility] 1.2.840.114 [id number] Univers 00:00:00 00:00:00 Care Clinic Health 350.1.13.10 ity of [place] 4.2.7.2.686 [place] as Professio [phone] Sc dical [facility] [address] Office Building [facility] 2019-11-08 2019-11-08 Hospital Radiology [facility] 1.2.840.114 [id number] Univers 09:03:00 23:59:00 Encounter [place] 350.1.13.10 ity of [place] [phone] [facility] [address] 2019-11-08 2019-11-08 Urgent Pob1, Acute Care Clinic [facility] 1. 2.840.114 [id number] Univers 09:32:56 12:09:26 Care Radiology [facility] 350.1.13.10 ity of [place] 4.2.7.2.686 [place] Professio [phone] [facility] [address] Office [facility] 2019-11-08 2019-11-08 Informatica Mdm Architect Maritza Cox Lab Main [facility] 1.2.8 40.114 [id number] Univers 09:02:11 09:17:11 Visit Levi Law 350.1.13.10 ity [place] [phone] [facility] [address] [facility] 2019-11-08 2019-11-08 Outpatient R RADIOLOGY [facility] [id number] Univers 00:00:00 00:00:00 ity of [facility] 2019-11-08 2019-11-08 Orders Doctor MILLY 1.2.840.114 [id number] Univers 00:00:00 00:00:00 Only Unassigned, JOSE ANTONIO 350.1.13.10 ity of [place] [facility] 4.2.7.2.686 [place] as [phone] [facility] [address] 2019-03-12 2019-03-13 Ancillary Geovanny Duffy [facility] 1.2.840. 114 [id number] Univers 07:56:47 15:56:01 Visit Avni James 350.1.13.10 ity of [place] [phone] Sc dical nal [address] Building 2019-03-07 2019-03-07 Hospital Jacob [facility] 1.2.840.114 [id number] Univers 16:14:38 23:59:00 Encounter Avni Tejada [facility] 350.1.13.10 ity of Surgical 4.2.7.2.686 [place] as Specialti [phone] Sc dical es 809 [facility] 2019-03-05 2019-03-05 Ancillary CliveGeovanny [facility] 1.2.840. 114 [id number] Univers 08:29:39 09:14:39 Visit Avni James Mallory Mayorga 350.1.13.10 ity of [place] [phone] Sc dical nal 179 [facility] 2019-02-28 2019-02-28 Ancillary Clive Geovanny Diehl [facility] 1.2.840. 114 [id number] Univers 07:57:36 08:42:36 Visit JamesAvni 350.1.13.10 ity [place] [phone] Sc dical nal 179 [facility] 2019-02-15 2019-02-15 Ancillary Clive Geovanny Diehl [facility] 1.2.840. 114 [id number] Univers 07:58:19 08:43:19 Visit JamesAvni richardson 350.1.13.10 ity of [place] [phone] Sc dical nal [address] [facility] [address] 2019-02-12 2019-02-12 Ancillary Tere Bronson [facility] 1 .2.840.114 [id number] Univers 07:56:42 08:41:42 Visit JamesAvni richardson 350.1.13.10 ity of [place] [phone] Sc dical nal [address] [facility] [address] 2019-02-09 2019-02-09 Ancillary Ashley Duffy [facility] 1.2.840 .114 [id number] Univers 08:11:19 08:56:19 Visit Avni James 350.1.13.10 it[place] of [place] [phone] Sc dical nal 179 [facility] 2019-02-07 2019-02-07 Ancillary Tere Bronson [place] 1 .2.840.114 [id number] Univers 07:54:36 08:39:36 Visit Avni James 350.1.13.10 it[place] of [place] [phone] Sc dical nal 179 [facility] 2019-02-01 2019-02-01 Ancillary Geovanny Duffy [facility] 1.2.840. 114 [id number] Univers 07:54:58 08:39:58 Visit Avni James 350.1.13.10 ity of [place] [phone] Sc dical nal 179 [facility] 2019-01-22 2019-01-31 Ancillary Geovanny Duffy [facility] 1.2.840. 114 [id number] Univers 16:39:36 09:05:21 Visit Avni James 350.1.13.10 it[place] [phone] Sc dical nal 179 [facility] 2019-01-31 2019-01-31 Ancillary Ashley Duffy [facility] 1.2.840 .114 [id number] Univers 07:55:42 08:40:42 Visit Avni James 350.1.13.10 it[place] of [place] [phone] Sc dical nal 179 [facility] 2019-01-31 2019-01-31 Orders Doctor ATKINS 1.2.840.114 [id number] Univers 00:00:00 00:00:00 Only Unassigned, JOSE ANTONIO 350.1.13.10 ity of [place] [facility] 4.2.7.2.686 [place] as [phone] [address] 2019-01-29 2019-01-29 Ancillary Geovanny Duffy [facility] 1.2.840. 114 [id number] Univers 08:09:56 08:54:56 Visit Avni James 350.1.13.10 it[place] of [place] [phone] Sc dical nal 179 [facility] 2019-01-25 2019-01-25 Ancillary Geovanny Duffy [facility] 1.2.840. 114 [id number] [facility] 16:39:33 17:24:33 Visit Avni James 350.1.13.10 it[place] [phone] Sc dical nal 179 [facility] 2019-01-24 2019-01-24 Ancillary Geovanny Duffy [facility] 1.2.840. 114 [id number] [facility] 16:41:55 17:26:55 Visit Avni James 350.1.13.10 it[place] of [place] [phone] Sc dical nal 179 [facility] 2019-01-18 2019-01-18 Ancillary Geovanny Duffy [facility] 1.2.840. 114 [id number] [facility] 16:40:54 17:23:16 Visit Avni James 350.1.13.10 it[place] of [place] [phone] [facility] nal 179 [facility] Results Test Description Test Time Test Comments Results Result Comments Source POCT GLUCOSE (AUTOMATED) 2023-03-24 17:48:32 Test Item Value Reference Range Interpretation Comme nts POCT GLU (test code = 1056615807) 158 mg/dL 70-110 H Lab Interpretation (test code = 61970-4) Abnormal [facility] GLUCOSE (AUTOMATED)2023-03-24 13:03:06 Test Item Value Reference Range Interpretation Comments POCT GLU (test code = 5877753222) 130 mg/dL 70-110 H Lab Interpretation (test code = Abnormal 36374-2) [facility] GLUCOSE (AUTOMATED)2023-03-24 01:41:53 Test Item Value Reference Range Interpretation Comments POCT GLU (test code = 146 mg/dL 70-110 H Notifi ed Provider [id number]) Lab Interpretation (test Abnormal code = 77338-2) [facility] 21:56:43 Test Item Value Reference Range Interpretation Comments POCT GLU (test code = 4997309621) 116 mg/dL 70-110 H Lab Interpretation (test code = Abnormal 97057-4) [facility]23-03[facility]23 17:08:35 Test Item Value Reference Range Interpretation Comments POCT GLU (test code = 6564297715) 123 mg/dL 70-110 H Lab Interpretation (test code = Abnormal 47752-5) [facility]2023-03-23 17:08:35 Test Item Value Reference Range Interpretation Comments POCT GLU (test code = 0709050332) 123 mg/dL 70-110 H Lab Interpretation (test code = Abnormal 62203-3) [facility]2023-03-23 12:55:34 Test Item Value Reference Range Interpretation Comments POCT GLU (test code = 4234662319) 146 mg/dL 70-110 H Lab Interpretation (test code = Abnormal 00885-7) [facility]23-03-23 12:55:34 Test Item Value Reference Range Interpretation Comments POCT GLU (test code = 1595762151) 146 mg/dL 70-110 H Lab Interpretation (test code = Abnormal 81575-6) [facility]-03-23 01:09:24 Test Item Value Reference Range Interpretation Comments POCT GLU (test code = 9249614232) 125 mg/dL 70-110 H Lab Interpretation (test code = Abnormal 27292-9) [facility]-23 01:09:24 Test Item Value Reference Range Interpretation Comments POCT GLU (test code = 6222201452) 125 mg/dL 70-110 H Lab Interpretation (test code = Abnormal 79180-6) [facility] GLUCOSE (AUTOMATED)2023-03-22 22:53:45 Test Item Value Reference Range Interpretation Comments POCT GLU (test code = 2398742191) 108 mg/dL 70-110 Lab Interpretation (test code = Normal 92659-8) [facility] GLUCOSE (AUTOMATED)2023-03-22 22:53:45 Test Item Value Reference Range Interpretation Comments POCT GLU (test code = 7594126535) 108 mg/dL 70-110 Lab Interpretation (test code = Normal 85468-6) [facility] GLUCOSE (AUTOMATED)2023-03-22 21:41:12 Test Item Value Reference Range Interpretation Comments POCT GLU (test code = 4321726255) 111 mg/dL 70-110 H Lab Interpretation (test code = Abnormal 05677-5) [facility] GLUCOSE (AUTOMATED)2023-03-22 21:41:12 Test Item Value Reference Range Interpretation Comments POCT GLU (test code = 1874886500) 111 mg/dL 70-110 H Lab Interpretation (test code = Abnormal 84259-5) [facility] GLUCOSE (AUTOMATED)2023-03-22 16:49:59 Test Item Value Reference Range Interpretation Comments POCT GLU (test code = 0324824423) 130 mg/dL 70-110 H Lab Interpretation (test code = Abnormal 94262-3) [facility] GLUCOSE (AUTOMATED)2023-03-22 16:49:59 Test Item Value Reference Range Interpretation Comments POCT GLU (test code = [id number]) 130 mg/dL 70-110 H Lab Interpretation (test code = Abnormal 52097-5) [facility] GLUCOSE (AUTOMATED)2023-03-22 13:10:43 Test Item Value Reference Range Interpretation Comments POCT GLU (test code = [id number]) 143 mg/dL 70-110 H Lab Interpretation (test code = Abnormal 70010-7) [facility] GLUCOSE (AUTOMATED)2023-03-22 13:10:43 Test Item Value Reference Range Interpretation Comments POCT GLU (test code = [id number]) 143 mg/dL 70-110 H Lab Interpretation (test code = Abnormal 02443-7) [facility] GLUCOSE (AUTOMATED)2023-03-22 00:38:13 Test Item Value Reference Range Interpretation Comments POCT GLU (test code = [id number]) 127 mg/dL 70-110 H Lab Interpretation (test code = Abnormal 81547-6) [facility] GLUCOSE (AUTOMATED)2023-03-22 00:38:13 Test Item Value Reference Range Interpretation Comments POCT GLU (test code = 2364303878) 127 mg/dL 70-110 H Lab Interpretation (test code = Abnormal 76591-0) [facility] GLUCOSE (AUTOMATED)2023-03-21 22:16:08 Test Item Value Reference Range Interpretation Comments POCT GLU (test code = 9032347797) 101 mg/dL 70-110 Lab Interpretation (test code = Normal 82026-7) [facility] GLUCOSE (AUTOMATED)2023-03-21 22:16:08 Test Item Value Reference Range Interpretation Comments POCT GLU (test code = 0662031389) 101 mg/dL 70-110 Lab Interpretation (test code = Normal 08252-3) [facility] GLUCOSE (AUTOMATED)2023-03-21 16:47:47 Test Item Value Reference Range Interpretation Comments POCT GLU (test code = 8304041177) 110 mg/dL 70-110 Lab Interpretation (test code = Normal 89564-3) [facility] GLUCOSE (AUTOMATED)2023-03-21 16:47:47 Test Item Value Reference Range Interpretation Comments POCT GLU (test code = 4689830648) 110 mg/dL 70-110 Lab Interpretation (test code = Normal 07064-3) [facility] GLUCOSE (AUTOMATED)2023-03-21 12:58:26 Test Item Value Reference Range Interpretation Comments POCT GLU (test code = 1135611401) 136 mg/dL 70-110 H Lab Interpretation (test code = Abnormal 10482-4) [facility] GLUCOSE (AUTOMATED)2023-03-21 12:58:26 Test Item Value Reference Range Interpretation Comments POCT GLU (test code = 3079857301) 136 mg/dL 70-110 H Lab Interpretation (test code = Abnormal 52427-4) [facility] GLUCOSE (AUTOMATED)2023-03-21 01:03:31 Test Item Value Reference Range Interpretation Comments POCT GLU (test code = 3430881500) 134 mg/dL 70-110 H Lab Interpretation (test code = Abnormal 59785-4) [facility] GLUCOSE (AUTOMATED)2023-03-21 01:03:31 Test Item Value Reference Range Interpretation Comments POCT GLU (test code = 4601201336) 134 mg/dL 70-110 H Lab Interpretation (test code = Abnormal 70492-1) [facility] 22:14:04 Test Item Value Reference Range Interpretation Comments POCT GLU (test code = 4157010503) 106 mg/dL 70-110 Lab Interpretation (test code = Normal 10396-3) [facility] GLUCOSE (AUTOMATED)2023-03-20 22:14:04 Test Item Value Reference Range Interpretation Comments POCT GLU (test code = 4258253571) 106 mg/dL 70-110 Lab Interpretation (test code = Normal 44497-9) [facility] GLUCOSE (AUTOMATED)2023-03-20 17:14:52 Test Item Value Reference Range Interpretation Comments POCT GLU (test code = 4402218015) 128 mg/dL 70-110 H Lab Interpretation (test code = Abnormal 28611-4) [facility] GLUCOSE (AUTOMATED)2023-03-20 17:14:52 Test Item Value Reference Range Interpretation Comments POCT GLU (test code = 7981083213) 128 mg/dL 70-110 H Lab Interpretation (test code = Abnormal 60883-2) [facility] GLUCOSE (AUTOMATED)2023-03-20 13:06:00 Test Item Value Reference Range Interpretation Comments POCT GLU (test code = 4248503698) 151 mg/dL 70-110 H Lab Interpretation (test code = Abnormal 52630-8) [facility] GLUCOSE (AUTOMATED)2023-03-20 13:06:00 Test Item Value Reference Range Interpretation Comments POCT GLU (test code = 5456441805) 151 mg/dL 70-110 H Lab Interpretation (test code = Abnormal 10373-8) [facility] GLUCOSE (AUTOMATED)2023-03-20 01:37:03 Test Item Value Reference Range Interpretation Comments POCT GLU (test code = 8085127908) 109 mg/dL 70-110 Lab Interpretation (test code = Normal 35901-5) [facility] GLUCOSE (AUTOMATED)2023-03-20 01:37:03 Test Item Value Reference Range Interpretation Comments POCT GLU (test code = 5140154842) 109 mg/dL 70-110 Lab Interpretation (test code = Normal 76643-2) [facility] 22:20:02 Test Item Value Reference Range Interpretation Comments POCT GLU (test code = 1825811765) 132 mg/dL 70-110 H Lab Interpretation (test code = Abnormal 33327-6) [facility] 22:20:02 Test Item Value Reference Range Interpretation Comments POCT GLU (test code = 0223382798) 132 mg/dL 70-110 H Lab Interpretation (test code = Abnormal 51075-2) [facility]19 18:14:59 Test Item Value Reference Range Interpretation Comments POCT GLU (test code = 7402273870) 113 mg/dL 70-110 H Lab Interpretation (test code = Abnormal 61935-0) [facility] GLUCOSE (AUTOMATED)2023-03-19 18:14:59 Test Item Value Reference Range Interpretation Comments POCT GLU (test code = 0141403531) 113 mg/dL 70-110 H Lab Interpretation (test code = Abnormal 93279-4) [facility] 15:18:30 Test Item Value Reference Range Interpretation Comments POCT GLU (test code = 9068495635) 184 mg/dL 70-110 H Lab Interpretation (test code = Abnormal 37613-2) [facility] GLUCOSE (AUTOMATED)2023-03-19 15:18:30 Test Item Value Reference Range Interpretation Comments POCT GLU (test code = 3602211955) 184 mg/dL 70-110 H Lab Interpretation (test code = Abnormal 34880-6) [facility] 13:13:13 Test Item Value Reference Range Interpretation Comments POCT GLU (test code = 2096613752) 146 mg/dL 70-110 H Lab Interpretation (test code = Abnormal 78101-4) [facility] 13:13:13 Test Item Value Reference Range Interpretation Comments POCT GLU (test code = 8920101607) 146 mg/dL 70-110 H Lab Interpretation (test code = Abnormal 86588-1) [facility] GLUCOSE (AUTOMATED)2023-03-19 01:06:25 Test Item Value Reference Range Interpretation Comments POCT GLU (test code = 2519159016) 119 mg/dL 70-110 H Lab Interpretation (test code = Abnormal 65429-3) [facility] GLUCOSE (AUTOMATED)2023-03-19 01:06:25 Test Item Value Reference Range Interpretation Comments POCT GLU (test code = 0038381705) 119 mg/dL 70-110 H Lab Interpretation (test code = Abnormal 20244-8) [facility] GLUCOSE (AUTOMATED)2023-03-18 21:47:59 Test Item Value Reference Range Interpretation Comments POCT GLU (test code = 6589658565) 129 mg/dL 70-110 H Lab Interpretation (test code = Abnormal 95570-1) [facility] GLUCOSE (AUTOMATED)2023-03-18 21:47:59 Test Item Value Reference Range Interpretation Comments POCT GLU (test code = 5252361205) 129 mg/dL 70-110 H Lab Interpretation (test code = Abnormal 04049-3) [facility] 2023-03-18 21:28:18 Test Item Value Reference Range Interpretation Comments Height (test code = 71 in 7711331842) Weight (test code = 261 lbs 2042223815) Systolic BP (test code 147 mmHg = 4281891397) Diastolic BP (test code 95 mmHg = 5125402103) Heart Rate (test code = 64 bpm 4968023146) EF(Teich) (test code = 61.70 % 6889231025) LVIDD (test code = 5.40 cm 9266583845) LVIDS (test code = 3.60 cm 6093256906) Left Ventricular End 53.4 mL Systolic Volume by Teichholz Method (test code = 8344143) Left Ventricular End 139.6 mL Diastolic Volume by Teichholz Method (test code = 5695804) IVS (test code = 0.96 cm 2158305592) LVPWD (test code = 0.86 cm 6357160559) LVOT diameter (test 2.14 cm code = 3773846203) LVOT area (test code = 3.60 cm2 5057420172) FS (test code = 34 % 2916319644) MV Peak E Erin (test 114.4 cm/s code = 0724027359) MV Peak A Erin (test 115.3 cm/s code = 7180798882) E/A ratio (test code = 0.99 ratio 2065399683) E wave decelartion time 0.22 s (test code = 7987569992) MV E/e' septal (test 8.5 cm/s code = 3284725921) LVOT peak erin (test 92.0 cm/s code = 6336682222) BSA (test code = 2.36 m2 9041360384) LA size (test code = 3.3 cm 1242581628) LAV(MOD-sp4) (test code 110.90 mL = 9456104939) Tapse (test code = 2.08 cm 9650641959) Ao peak erin (test code 148.9 cm/s = 1276562423) AV LVOT peak gradient 3.4 mmHg (test code = 3247681156) AV area peak erin (test 2.2 cm2 code = 6773375811) Ao max PG (test code = 9.00 mm[Hg] 7341489651) MV Prop V (test code = 61.50 cm/s 1882217722) TR Peak Erin (test code 240.3 cm/s = 7745619660) Triscuspid Valve 23.1 mmHg Regurgitation Peak Gradient (test code = 6682601242) Ao root diam (test code 3.90 cm = 9901301177) AV peak gradient (test 9.0 mmHg code = 5429033311) Aortic root (test code 3.9 cm = 7686642083) Ao root annulus (test 3.9 cm code = 1183281708) PW (test code = 0.86 cm 0.6-1.2 5354187466) EF - 2D (test code = 61.70 % 27120130) Interventricular Septum 0.96 cm Diastolic Thickness by 2D (test code = 3063455) Aortic valve mean 85.7 cm/s velocity (test code = 3950924351) Ao VTI (test code = 26.2 cm 3212356629) AV mean gradient (test 3.7 mmHg code = 2983213080) LVOT stroke volume 72.80 cm3 (test code = 6317897726) LVOT mn grad (test code 1.7 mmHg = 8160583390) LVOT peak VTI (test 20.2 cm code = 7209502113) AV area by cont VTI 2.8 cm2 (test code = 4294587180) LV V1 mean (test code = 59.30 cm/s 5714785053) AV valve area (test 2.80 cm2 code = 6056143092) Radiology Study observation (narrative) (test code = 31688-4) ALBER (test code = ALBER) ?Left?Ventricle: Left ventricle size is normal. Normal wall thickness. Ventricular mass is normal. Normal wall motion. Normal systolic function with a visually estimated EF of 60 - 65%. There is grade 2 diastolic dysfunction. ?Right?Ventricle: Right ventricle size is normal. Normal systolic function. ?Left?Atrium: Left atrium is moderately dilated. Saline contrast shows no shunt. ?Aortic?Valve: Not well visualized. Mildly thickened cusps. Mildly calcified cusps. Trace transvalvular regurgitation. No hemodynamically significant using contineuty equation. Left VentricleLeft ventricle size is normal. Normal wall thickness. Ventricular mass is normal. Normal wall motion. Normal systolic function with a visually estimated EF of 60 - 65%. There is grade 2 diastolic dysfunction.Right VentricleRight ventricle size is normal. Normal systolic function.Left AtriumLeft atrium is moderately dilated. Saline contrast shows no shunt.Right AtriumRight atrium size is normal.IVC/SVCIVC was not well visualized. SVC was not assessed.Mitral ValveMitral valve structure is normal. Mild transvalvular regurgitation. No stenosis.Tricuspid ValveTricuspid valve structure is normal. Trace transvalvular regurgitation. Right ventricular systolic pressure is 30-35 mmHg. No stenosis.Aortic ValveNot well visualized. Mildly thickened cusps. Mildly calcified cusps. Trace transvalvular regurgitation. No hemodynamically significant using contineuty equation.Pulmonic ValveNot well visualized.Ascending AortaNormal sized annulus and sinus of Valsalva.PericardiumNo pericardial effusion.Study DetailsStudy quality experienced technical difficulty. A complete echocardiogram was performed using 2D, color flow Doppler and spectral Doppler. The apical, parasternal and subcostal views were obtained. 5 mL of Lumason ultrasound enhancing agent used and saline contrast was performed. [facility] (TTE) 2023-03-18 21:28:18 Test Item Value Reference Range Interpretation Comments Height (test code = 71 in 8711529212) Weight (test code = 261 lbs 4172970988) Systolic BP (test code 147 mmHg = 4023006856) Diastolic BP (test code 95 mmHg = 5525397651) Heart Rate (test code = 64 bpm 3376791614) EF(Teich) (test code = 61.70 % 6605434804) LVIDD (test code = 5.40 cm 7782933953) LVIDS (test code = 3.60 cm 2666891098) Left Ventricular End 53.4 mL Systolic Volume by Teichholz Method (test code = 2928722) Left Ventricular End 139.6 mL Diastolic Volume by Teichholz Method (test code = 1414885) IVS (test code = 0.96 cm 9293502904) LVPWD (test code = 0.86 cm 9852967485) LVOT diameter (test 2.14 cm code = 7861011753) LVOT area (test code = 3.60 cm2 0496832805) FS (test code = 34 % 3866102911) MV Peak E Erin (test 114.4 cm/s code = 7180419211) MV Peak A Erin (test 115.3 cm/s code = 7907761077) E/A ratio (test code = 0.99 ratio 3027046258) E wave decelartion time 0.22 s (test code = 0935965417) MV E/e' septal (test 8.5 cm/s code = 9432990745) LVOT peak erin (test 92.0 cm/s code = 3557461574) BSA (test code = 2.36 m2 0304976782) LA size (test code = 3.3 cm 9922893577) LAV(MOD-sp4) (test code 110.90 mL = 8143177461) Tapse (test code = 2.08 cm 9945897620) Ao peak erin (test code 148.9 cm/s = 8003064929) AV LVOT peak gradient 3.4 mmHg (test code = 1144397978) AV area peak erin (test 2.2 cm2 code = 5461494769) Ao max PG (test code = 9.00 mm[Hg] 7266301731) MV Prop V (test code = 61.50 cm/s 5667638509) TR Peak Erin (test code 240.3 cm/s = 3655653461) Triscuspid Valve 23.1 mmHg Regurgitation Peak Gradient (test code = 5862236266) Ao root diam (test code 3.90 cm = 4851655214) AV peak gradient (test 9.0 mmHg code = 6730986919) Aortic root (test code 3.9 cm = 9286144266) Ao root annulus (test 3.9 cm code = 4271515045) PW (test code = 0.86 cm 0.6-1.1 0540297392) EF - 2D (test code = 61.70 % 50141871) Interventricular Septum 0.96 cm Diastolic Thickness by 2D (test code = 5850891) Aortic valve mean 85.7 cm/s velocity (test code = 1285686676) Ao VTI (test code = 26.2 cm 5163796095) AV mean gradient (test 3.7 mmHg code = 7431462779) LVOT stroke volume 72.80 cm3 (test code = 9820725752) LVOT mn grad (test code 1.7 mmHg = 3993577168) LVOT peak VTI (test 20.2 cm code = 3580871592) AV area by cont VTI 2.8 cm2 (test code = 8197135145) LV V1 mean (test code = 59.30 cm/s 3831511567) AV valve area (test 2.80 cm2 code = 2780814409) Radiology Study observation (narrative) (test code = 69513-9) ALBER (test code = ALBER) ?Left?Ventricle: Left ventricle size is normal. Normal wall thickness. Ventricular mass is normal. Normal wall motion. Normal systolic function with a visually estimated EF of 60 - 65%. There is grade 2 diastolic dysfunction. ?Right?Ventricle: Right ventricle size is normal. Normal systolic function. ?Left?Atrium: Left atrium is moderately dilated. Saline contrast shows no shunt. ?Aortic?Valve: Not well visualized. Mildly thickened cusps. Mildly calcified cusps. Trace transvalvular regurgitation. No hemodynamically significant using contineuty equation. Left VentricleLeft ventricle size is normal. Normal wall thickness. Ventricular mass is normal. Normal wall motion. Normal systolic function with a visually estimated EF of 60 - 65%. There is grade 2 diastolic dysfunction.Right VentricleRight ventricle size is normal. Normal systolic function.Left AtriumLeft atrium is moderately dilated. Saline contrast shows no shunt.Right AtriumRight atrium size is normal.IVC/SVCIVC was not well visualized. SVC was not assessed.Mitral ValveMitral valve structure is normal. Mild transvalvular regurgitation. No stenosis.Tricuspid ValveTricuspid valve structure is normal. Trace transvalvular regurgitation. Right ventricular systolic pressure is 30-35 mmHg. No stenosis.Aortic ValveNot well visualized. Mildly thickened cusps. Mildly calcified cusps. Trace transvalvular regurgitation. No hemodynamically significant using contineuty equation.Pulmonic ValveNot well visualized.Ascending AortaNormal sized annulus and sinus of Valsalva.PericardiumNo pericardial effusion.Study DetailsStudy quality experienced technical difficulty. A complete echocardiogram was performed using 2D, color flow Doppler and spectral Doppler. The apical, parasternal and subcostal views were obtained. 5 mL of Lumason ultrasound enhancing agent used and saline contrast was performed. [facility] ([facility]1C[facility]2023-03-18 17:54:49 Test Item Value Reference Range Interpretation Comments HGB A1C (test code = 6.9 % 4.0-5.7 H 4548-4) ALBER (test code = ALBER) Reference RangesNormal: <5.7%Prediabetes: 5.7 - 6.4%Diabetes: > 6.5% Lab Interpretation (test Abnormal code = 24996-8) [facility] (A1C)2023-03-18 17:54:49 Test Item Value Reference Range Interpretation Comments HGB A1C (test code = 6.9 % 4.0-5.7 H 4548-4) ALBER (test code = ALBER) Reference RangesNormal: <5.7%Prediabetes: 5.7 - 6.4%Diabetes: > 6.5% Lab Interpretation (test Abnormal code = 94128-9) [facility] Lipd [facility] (43888)(TOTAL CHOLESTEROL, TRIGLYCERIDES, HDL)2023-03-18 16:01:22 Test Item Value Reference Range Interpretation Comments CHOL (test code = 0620342362) 196 mg/dL 120-200 HDL (test code = 5872100491) 26 mg/dL >=40 L HDLC RATIO (test code = 3209560084) 7.5 <=5.0 H TRIG (test code = 0537608918) 223 mg/dL 30-170 H LDL CHOL (test code = 67151-5) 125 mg/dL <=160 VLDL (test code = 3500571003) 45 mg/dL 5-60 Lab Interpretation (test code = Abnormal 22884-7) [facility] (54997)(TOTAL CHOLESTEROL, TRIGLYCERIDES, HDL)2023-03-18 16:01:22 Test Item Value Reference Range Interpretation Comments CHOL (test code = 8266104441) 196 mg/dL 120-200 HDL (test code = 0233216286) 26 mg/dL >=40 L HDLC RATIO (test code = 1684789878) 7.5 <=5.0 H TRIG (test code = 8849412091) 223 mg/dL 30-170 H LDL CHOL (test code = 91897-5) 125 mg/dL <=160 VLDL (test code = 3149942103) 45 mg/dL 5-60 Lab Interpretation (test code = Abnormal 96630-2) [facility] I - Code [id number] 12:11:39 Test Item Value Reference Range Interpretation Comments TROPONIN I (test code = 0.001 ng/mL <=0.034 5799765443) ALBER (test code = ALBER) Reference (Normal) Range (defined by the 99th percentile reference limit): <= 0.034 ng/mL Note: Cardiac troponin begins to rise 3-4 hours after the onset of ischemia. Repeat in 4-6 hours if the sample was drawn within 3-4 hours of the onset of the symptom and found normal. Diagnosis of myocardial injury is made with acute changes in cTn concentrations with at least one serial sample above the 99th percentile upper reference limit (URL), taken together with the patient's clinical presentation. Biotin has been reported to cause a negative bias, interpret results relative to patient's use of biotin. Lab Interpretation Normal (test code = 29833-5) [facility] I - Code [id number] 12:11:39 Test Item Value Reference Range Interpretation Comments TROPONIN I (test code = 0.001 ng/mL <=0.034 7309610196) ALBER (test code = ALBER) Reference (Normal) Range (defined by the 99th percentile reference limit): <= 0.034 ng/mL Note: Cardiac troponin begins to rise 3-4 hours after the onset of ischemia. Repeat in 4-6 hours if the sample was drawn within 3-4 hours of the onset of the symptom and found normal. Diagnosis of myocardial injury is made with acute changes in cTn concentrations with at least one serial sample above the 99th percentile upper reference limit (URL), taken together with the patient's clinical presentation. Biotin has been reported to cause a negative bias, interpret results relative to patient's use of biotin. Lab Interpretation Normal (test code = 85978-0) [facility] Metabolic Panel (NA, K, CL, CO2, Glucose, BUN, Creatinine, CA) - Code [id number] 12:00:19 Test Item Value Reference Range Interpretation Comments NA (test code = 137 mmol/L 135-145 3522015122) K (test code = 4.6 mmol/L 3.5-5.0 0856779006) CL (test code = 106 mmol/L 98-108 2166938102) CO2 TOTAL (test code = 23 mmol/L 23-31 7400957240) AGAP (test code = 8 2-16 4328146764) BUN (test code = 24 mg/dL 7-23 H 1037590552) GLUCOSE (test code = 188 mg/dL 70-110 H 3505810507) CREATININE (test code = 0.97 mg/dL 0.60-1.25 9775473291) CALCIUM (test code = 8.5 mg/dL 8.6-10.6 L 4901573315) eGFR (test code = 77.0 mL/min/1.73m2 8517779581) ALBER (test code = ALBER) Association of Glomerular Filtration Rate (GFR) and Staging of Kidney Disease* + --+ --+ ------+| GFR (mL/min/1.73 m2) ?| With Kidney Damage ?| ?Without Kidney Damage+ --------+ --------+ +| ?>90 ?| ?Stage one ?| ? Normal ?+ ---+ ---+ -------+| ?60-89 ?| ?Stage two ?| ? Decreased GFR ? + --+ --+ ------+| ?30-59 ?| ?Stage three ?| ? Stage three ? + --+ --+ ------+| ?15-29 ?| ?Stage four ? | ? Stage four ?+ ---+ ---+ -------+| ?<15 (or dialysis) ? ?| ?Stage five ? | ? Stage five ?+ ---+ ---+ -------+ *Each stage assumes the associated GFR level has been in effect for at least three months. ?Stages 1 to 5, with or without kidney disease, indicate chronic kidney disease. Notes: Determination of stages one and two (with eGFR >59mL/min/1.73 m2) requires estimation of kidney damage for at least three months as defined by structural or functional abnormalities of the kidney, manifested by either:Pathological abnormalities or Markers of kidney damage (including abnormalities in the composition of the blood or urine or abnormalities in imaging tests). Lab Interpretation Abnormal (test code = 78002-2) [facility] Metabolic Panel (NA, K, CL, CO2, Glucose, BUN, Creatinine, CA) - Code [id number] 12:00:19 Test Item Value Reference Range Interpretation Comments NA (test code = 137 mmol/L 135-145 6035875382) K (test code = 4.6 mmol/L 3.5-5.0 9398037140) CL (test code = 106 mmol/L 98-108 0430454175) CO2 TOTAL (test code = 23 mmol/L 23-31 1084110500) AGAP (test code = 8 2-16 8323877047) BUN (test code = 24 mg/dL 7-23 H 9289613056) GLUCOSE (test code = 188 mg/dL 70-110 H 7812846853) CREATININE (test code = 0.97 mg/dL 0.60-1.25 2489099839) CALCIUM (test code = 8.5 mg/dL 8.6-10.6 L 3624834525) eGFR (test code = 77.0 mL/min/1.73m2 5826592631) ALBER (test code = ALBER) Association of Glomerular Filtration Rate (GFR) and Staging of Kidney Disease* + --+ --+ ------+| GFR (mL/min/1.73 m2) ?| With Kidney Damage ?| ?Without Kidney Damage+ --------+ --------+ +| ?>90 ?| ?Stage one ?| ? Normal ?+ ---+ ---+ -------+| ?60-89 ?| ?Stage two ?| ? Decreased GFR ? + --+ --+ ------+| ?30-59 ?| ?Stage three ?| ? Stage three ? + --+ --+ ------+| ?15-29 ?| ?Stage four ? | ? Stage four ?+ ---+ ---+ -------+| ?<15 (or dialysis) ? ?| ?Stage five ? | ? Stage five ?+ ---+ ---+ -------+ *Each stage assumes the associated GFR level has been in effect for at least three months. ?Stages 1 to 5, with or without kidney disease, indicate chronic kidney disease. Notes: Determination of stages one and two (with eGFR >59mL/min/1.73 m2) requires estimation of kidney damage for at least three months as defined by structural or functional abnormalities of the kidney, manifested by either:Pathological abnormalities or Markers of kidney damage (including abnormalities in the composition of the blood or urine or abnormalities in imaging tests). Lab Interpretation Abnormal (test code = 19316-6) [facility] - Code [id number] 11:57:17 Test Item Value Reference Range Interpretation Comments APTT Patient (test 27 See_Comment [Automat ed code = 3173-2) message] The system which generated this result transmitted reference range : 23 - 38 Seconds . The reference range was not used to interpr et this result as normal/abnormal . ALBER (test code = ALBER) The [facility] patient population mean normal value for aPTT is 30 seconds. Lab Interpretation Normal (test code = 98144-1) [facility] [id number] 11:57:17 Test Item Value Reference Range Interpretation Comments APTT Patient (test 27 See_Comment [Automat ed code = 3173-2) message] The system which generated this result transmitted reference range : 23 - 38 Seconds . The reference range was not used to interpr et this result as normal/abnormal . ALBER (test code = ALBER) The [facility] patient population mean normal value for aPTT is 30 seconds. Lab Interpretation Normal (test code = 74889-3) [facility] - Code [id number] 11:54:56 Test Item Value Reference Range Interpretation Comments PROTIME PATIENT (test 12.4 See_Comment [Auto mated message] code = 5964-2) The system startuply generated this result transmitted ref erence range: 12.0 - 1 4.7 Seconds. The re ference range was not u sed to interpret this result as normal/abnor mal. INR (test code = 6301-6) 1.0 Nor mal INR <1.1; Warfarin Therap eutic range 2.0 to 3. 0 or 2.5 to 3.5, dep ending upon the indica tions. Lab Interpretation (test Normal code = 43702-5) [facility] - Code [id number] 11:54:56 Test Item Value Reference Range Interpretation Comments PROTIME PATIENT (test 12.4 See_Comment [Auto mated message] code = 5964-2) The system [employer] generated this result transmitted ref erence range: 12.0 - 1 4.7 Seconds. The re ference range was not u sed to interpret this result as normal/abnor mal. INR (test code = 6301-6) 1.0 Nor mal INR <1.1; Warfarin Therap eutic range 2.0 to 3. 0 or 2.5 to 3.5, dep ending upon the indica tions. Lab Interpretation (test Normal code = 19765-9) [facility] without Diff - Code [id number] 11:47:17 Test Item Value Reference Range Interpretation Comments WBC (test code = 6690-2) 10.40 See_Comment [A utomated message] The system [employer] generated this result transmit renato reference range : 4.20 - 10.70 10*3/?L. The reference range was not used to interpret this result as normal/abnormal . RBC (test code = 789-8) 5.26 See_Comment [Au tomated message] The system [employer] generated this result transmit renato reference range : 4.26 - 5.52 10* 6/?L. The reference r raoul was not used to interpret this result as normal/abnormal . HGB (test code = 718-7) 15.3 g/dL 12.2-16.4 HCT (test code = 4544-3) 45.2 % 38.4-49.3 MCH (test code = 785-6) 29.1 pg 26.1-32.7 MCV (test code = 787-2) 85.9 fL 81.7-95.6 MCHC (test code = 786-4) 33.8 g/dL 31.2-35.0 PLT (test code = 777-3) 246 See_Comment [Au tomated message] The system [employer] generated this result transmit renato reference range : 150 - 328 10*3/?L. The reference range was not used to interpret this result as normal/abnormal . MPV (test code = 8.7 fL 9.8-13.0 L 10002-8) RDW-CV (test code = 13.1 % 12.1-15.4 788-0) RDW-SD (test code = 40.5 fL 38.5-51.6 69500-7) NRBC x10^3 (test code = See_Comment [Au tomated message] [id number]) The system [employer] generated this result transmit renato reference range : 10*3/?L. The reference range was not used to interpret this result as normal/abnormal . NRBC/100 WBC (test code 0.0 See_Comment [Au tomated message] = [id number]) The system [facility] generated this result transmit renato reference range : 0.0 - 10.0 /100 WBC s. The reference r raoul was not used to interpret this result as normal/abnormal . IPF % (test code = 2470705662) Lab Interpretation (test Abnormal code = 06838-3) [facility] without Diff - Code [id number] 11:47:17 Test Item Value Reference Range Interpretation Comments WBC (test code = 6690-2) 10.40 See_Comment [A utomated message] The system [employer] generated this result transmit renato reference range : 4.20 - 10.70 10*3/?L. The reference range was not used to interpret this result as normal/abnormal . RBC (test code = 789-8) 5.26 See_Comment [Au tomated message] The system [employer] generated this result transmit renato reference range : 4.26 - 5.52 10* 6/?L. The reference r raoul was not used to interpret this result as normal/abnormal . HGB (test code = 718-7) 15.3 g/dL 12.2-16.4 HCT (test code = 4544-3) 45.2 % 38.4-49.3 MCH (test code = 785-6) 29.1 pg 26.1-32.7 MCV (test code = 787-2) 85.9 fL 81.7-95.6 MCHC (test code = 786-4) 33.8 g/dL 31.2-35.0 PLT (test code = 777-3) 246 See_Comment [Au tomated message] The system [facility] generated this result transmit renato reference range : 150 - 328 10*3/?L. The reference range was not used to interpret this result as normal/abnormal . MPV (test code = 8.7 fL 9.8-13.0 L 98764-8) RDW-CV (test code = 13.1 % 12.1-15.4 788-0) RDW-SD (test code = 40.5 fL 38.5-51.6 58110-6) NRBC x10^3 (test code = See_Comment [Au tomated message] [id number]) The system [facility] generated this result transmit renato reference range : 10*3/?L. The reference range was not used to interpret this result as normal/abnormal . NRBC/100 WBC (test code 0.0 See_Comment [Au tomated message] = [id number]) The system [facility] generated this result transmit renato reference range : 0.0 - 10.0 /100 WBC s. The reference r raoul was not used to interpret this result as normal/abnormal . IPF % (test code = 9942528178) Lab Interpretation (test Abnormal code = 44166-6) [facility] HEMOGLOBIN A1C [id number] 21:04:00 Test Item Value Reference Range Interpretation Comments POCT HBA1C (test code = 4548-4) 5.8 % 4-6 [facility] HEMOGLOBIN A1C [id number] 21:04:00 Test Item Value Reference Range Interpretation Comments POCT HBA1C (test code = 4548-4) 5.8 % 4-6 [facility] HEMOGLOBIN A1C [id number] 19:46:00 Test Item Value Reference Range Interpretation Comments POCT HBA1C (test code = 4548-4) 5.4 % 4-6 [facility] HEMOGLOBIN A1C [id number] 19:46:00 Test Item Value Reference Range Interpretation Comments POCT HBA1C (test code = 4548-4) 5.4 % 4-6 [facility] HEMOGLOBIN A1C [id number] 18:41:00 Test Item Value Reference Range Interpretation Comments POCT HBA1C (test code = 4548-4) 5.6 % 4-6 [facility]
[2023-04-30 20:15] LABS: Absolute Lymphocytes (CBC) 2.8 K/uL (0.7-4.9); Hematocrit 42.7 % (39.6-49.0); Lymphocytes % 28.6 % (15.3-44.8); MCV 83.8 fL (80-100); MPV 6.7 fL (7.6-11.3); Platelets 320 thou/uL (152-406); RBC Red Blood Cell Count 5.09 M/uL (4.33-5.43)
[2023-04-30 20:33] LABS: Magnesium 2.2 mg/dL (1.6-2.4); Potassium 3.8 mEq/L (3.5-5.1); Troponin High Sensitivity 5.1 pg/mL (<58.9)
--- NOTE | 2023-04-30 21:08 | RAD REPORT ---
EXAM DESCRIPTION: RAD - Chest Single View - 04/30/2023 8:51 pm CLINICAL HISTORY: SOB COMPARISON: Chest Single View dated 01/25/2021; Chest Single View dated 12/31/2019; Chest Single View da renato 08/25/2016; CHEST PA AND LAT 2 VIEW dated 12/15/2009 FINDINGS: Lines: None. Lungs: No evidence of edema or pneumonia. Pleural: No significant pleural effusions or pneumothorax. Cardiac: The heart size is within normal limits. Mediastinum: Within normal limits. Bones: No acute fractures. Other: None IMPRESSION: No acute cardiopulmonary disease.
[2023-04-30] MEDS ORDERED: ASPIRIN 81 MG CHEWABLE TABLET ONE (21:23)
[2023-04-30] MEDS ORDERED: LORazepam 2 MG/ML VIAL ONE (21:24)
--- NOTE | 2023-04-30 21:37 | RAD REPORT ---
EXAM DESCRIPTION: CT - Chest For Pe Angio - 04/30/2023 9:22 pm CLINICAL HISTORY: CHEST PAIN COMPARISON: CTANGIO CHEST FOR PE dated 11/09/2009; Chest Single View dated 04/30/2023 TECHNIQUE: Dynamically enhanced axial 3 mm thick images of the chest were obtained during administra tion of <100> mL Isovue 370 IV contrast. Coronal and oblique reconstruction images were generated and reviewed. Exam utilizes a protocol for optimal evaluation of pulmonary arterial tree. Maximum intensity projections 3D imaging was utilized All CT scans are performed using dose optimization technique as appropriate and may include automated exposure control or mA/KV adjustment according to patient size. FINDINGS: Chest Wall: No suspicious thyroid nodules or pathologic lymphadenopathy. Lungs: No acute abnormality. Pleura: No significant effusions or pneumothorax. Mediastinum/demetrius: No pathologic lymphadenopathy. Small hiatal hernia. Pulmonary arteries/Aorta: No filling defect identified. No aortic aneurysm. Heart: No significant pericardial effusion. Normal heart size. Upper abdomen: No acute abnormality. Bones: No acute abnormality. Bridging osteophytes in the spine. IMPRESSION: Negative for pulmonary embolism. No acute process in the chest.
--- NOTE | 2023-05-01 00:27 | EDPHYS ---
Physician Documentation [facility] Name: Theron Murrell Age: 68 yrs Sex: Male : 1955 Arrival Date: 04/30/2023 Time: 19:26 Bed 19 Private MD: ED Physician Gus Cruz HPI: 04/30 19:47 This 68 yrs old Male presents to ER via Ambulatory with complaints of Chest Pain, Back cp Pain, Breathing Difficulty. 19:47 The patient presents with pain that is acute, with no known mechanism of injury. cp 19:47 The symptoms are located in the left subscapular area. The pain radiates to the left cp side of chest. Associated signs and symptoms: Pertinent positives: shortness of breath, Pertinent negatives: abdominal pain, fever, cough. The problem was sustained from unknown cause. 19:47 Onset: The symptoms/episode began/occurred today. cp Historical: - Allergies: 19:47 Codeine; rv 19:47 Sulfa (Sulfonamide Antibiotics); rv - PMHx: 19:47 Bronchitis; Gout; Hypertensive disorder; Hypothyroidism; Kidney stones; Cerebrovascular rv accident; - Immunization history:: Adult Immunizations up to date. - Social history:: Smoking status: Patient denies any tobacco usage or history of. ROS: 19:50 Constitutional: Negative for body aches, chills, fever, poor PO intake, cp 19:50 Eyes: Negative for injury, pain, redness, and discharge, cp 19:50 Neck: Negative for pain with movement, pain at rest, stiffness, cp 19:50 Cardiovascular: Positive for chest pain, Negative for edema, palpitations, 19:50 Respiratory: Positive for shortness of breath, Negative for cough, wheezing, 19:50 Abdomen/GI: Negative for abdominal pain, nausea, vomiting, and diarrhea, 19:50 Back: Positive for pain at rest, pain with movement, 19:50 Skin: Negative for rash, 19:50 Neuro: Negative for altered mental status, dizziness, headache, numbness, syncope, weakness, 19:50 All other systems are negative, cp Exam: 19:48 ECG was reviewed by the Attending Physician. cp 19:55 Constitutional: The patient appears in no acute distress, alert, awake, cp non-diaphoretic, non-toxic, well developed, well nourished, anxious, overweight 19:55 Head/Face: Normocephalic, atraumatic. cp 19:55 Eyes: Periorbital structures: appear normal, Pupils: equal, round, and reactive to light and accomodation, Extraocular movements: intact throughout, Conjunctiva: normal, no exudate, no injection, Sclera: no appreciated abnormality, Lids and lashes: appear normal, bilaterally, 19:55 ENT: External ear(s): are unremarkable, Nose: is normal, Mouth: Lips: moist, Oral mucosa: pink and intact, moist, Posterior pharynx: is normal, airway is patent, no erythema, no exudate, 19:55 Neck: ROM/movement: is normal, is supple, without pain, no range of motions limitations, 19:55 Chest/axilla: Inspection: normal, Palpation: is normal, no crepitus, no tenderness, 19:55 Cardiovascular: Rate: normal, Rhythm: regular, Edema: is not appreciated, JVD: is not appreciated, 19:55 Respiratory: the patient does not display signs of respiratory distress, Respirations: normal, no use of accessory muscles, no retractions, labored breathing, is not present, Breath sounds: are clear throughout, no decreased breath sounds, no stridor, no wheezing, 19:55 Abdomen/GI: Inspection: abdomen appears normal, Palpation: abdomen is soft and non-tender, in all quadrants, 19:55 Back: pain, of the left subscapular area, ROM is normal, 19:55 Skin: no rash present. 19:55 Neuro: Orientation: to person, place \T\ time. Mentation: is normal, Vital Signs: 19:46 BP 142 / 86; Pulse 77; Resp 17; Temp 97.6; Pulse Ox 100% ; Weight 115.67 kg; Height 5 rv ft. 11 in. ; 21:00 BP 127 / 90; Pulse 79; Resp 17; Pulse Ox 97% on R/A; rv 22:00 BP 132 / 91 (/pedi); Pulse 83; Resp 18; Pulse Ox 98% on R/A; rv 23:00 BP 130 / 91; Pulse 89; Resp 17; Pulse Ox 99% on R/A; rv 1105 00:00 BP 138 / 75; Pulse 87; Resp 18; Pulse Ox 98% on R/A; rv 00:30 BP 138 / 86; Pulse 84; Resp 16; Temp 98; Pulse Ox 97% on R/A; rv 04/30 19:46 Body Mass Index 35.56 (115.67 kg, 180.34 cm) rv [place] Coma Score: 00:30 Eye Response: spontaneous(4). Motor Response: obeys commands(6). Verbal Response: rv oriented(5). Total: 15. MDM: 04/30 19:35 Patient medically screened. cp 05/01 00:25 The patient was given aspirin in the Emergency Department. cp 00:25 Differential diagnosis: abnormal EKG, acute myocardial infarction, anxiety, chest wall cp pain, pneumonia, pneumothorax, pulmonary embolus, stable angina, thoracic aortic disection, unstable angina. Data reviewed: vital signs, nurses notes, lab test result(s), EKG, radiologic studies, CT scan, plain films. Consideration of Admission/Observation Escalation of care including admission/observation considered. I considered the following discharge prescriptions or medication management in the emergency department Medications were administered in the Emergency Department. See MAR. Independent interpretation of the following test(s) in the Emergency Department EKG: See my EKG interpretation above. Care significantly affected by the following chronic conditions: Hypertension. 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 Response to treatment: the patient's symptoms have markedly improved after treatment, and as a result, I will discharge patient. Special discussion: Based on the patient's history, exam, and Dx evaluation, there is no indication for emergent intervention or inpatient Tx. It is understood by the patient/guardian that if the Sx's persist or worsen they need to return immediately for re-evaluation. 04/30 19:47 Order name: Basic Metabolic Panel; Complete Time: 20:52 cp 04/30 20:53 Interpretation: Normal except: CL 112; CO2 20; GLUC 118; BUN 19; GFR 69. cp 04/30 19:47 Order name: CBC with Diff; Complete Time: 20:52 cp 04/30 20:53 Interpretation: Normal except: MPV 6.7. cp 04/30 19:47 Order name: D-Dimer; Complete Time: 20:52 cp 04/30 19:47 Order name: Magnesium; Complete Time: 20:52 cp 04/30 19:47 Order name: NT PRO-BNP; Complete Time: 20:52 cp 04/30 19:47 Order name: PT-INR; Complete Time: 20:52 cp 04/30 19:47 Order name: Troponin HS; Complete Time: 20:52 cp 04/30 21:41 Interpretation: Troponin HS 5.1; Reviewed. cp 04/30 23:26 Order name: Troponin HS; Complete Time: 00:13 cp 04/30 19:47 Order name: XRAY Chest (1 view); Complete Time: 21:40 cp 04/30 20:53 Order name: CT Chest For PE Angio; Complete Time: 21:40 cp 04/30 19:47 Order name: EKG; Complete Time: 19:48 cp 04/30 19:47 Order name: Cardiac monitoring; Complete Time: 19:49 cp 04/30 19:47 Order name: EKG - Nurse/Tech; Complete Time: 19:49 cp 04/30 19:47 Order name: IV Saline Lock; Complete Time: 19:49 cp 04/30 19:47 Order name: Labs collected and sent; Complete Time: 19:49 cp 04/30 19:47 Order name: O2 Per Protocol; Complete Time: 19:49 cp 04/30 19:47 Order name: O2 Sat Monitoring; Complete Time: 19:49 cp 04/30 23:26 Order name: EKG - Nurse/Tech; Complete Time: 23:39 cp EC/04 19:48 Rate is 77 beats/min. Rhythm is regular. WV interval is normal. QRS interval is normal. cp QT interval is normal. T waves are Inverted in lead aVR. Interpreted by me. Reviewed by me. Administered Medications: 21:16 Drug: Aspirin PO Chewable Tablet 162 mg PO once Route: PO; rv 21:16 Drug: Ativan IVP 1 mg IVP once Route: IVP; Site: right forearm; rv Disposition: 05/01 21:08 Co-signature as Attending Physician, Gus Cruz MD I agree with the assessment sp4 and plan of care. I reviewed the patient's care provided by the Advanced Practice Provider and agree with the diagnosis and treatment plan. Disposition Summary: 05/01/23 00:26 Discharge Ordered Notes: Location: Home cp Problem: new cp Symptoms: have improved cp Condition: Stable cp Diagnosis - Chest pain, unspecified cp - Anxiety disorder, unspecified cp Followup: cp - With: Private Physician - When: 2 - 3 days - Reason: Recheck today's complaints Discharge Instructions: - Discharge Summary Sheet cp - Panic Attack cp - Nonspecific Chest Pain, Adult cp - Aspirin and Your Heart cp - Managing Anxiety, Adult cp Forms: - Medication Reconciliation Form cp - Thank You Letter cp - Antibiotic Education cp - Prescription Opioid Use cp - Patient Portal Instructions cp - Leadership Thank You Letter cp Prescriptions: - Ativan 1 mg Oral Tablet - take 1 tablet ORAL route every 8 hours As needed; 10 tablet; Refills: 0, cp Product Selection Permitted Signatures: Dispatcher [employer] EDMS Juan Edward PA PA cp Vicente, Ronaldo, RN RN Gus Eli MD MD sp4
--- NOTE | 2023-05-01 00:27 | ER ---
Nurse's Notes [facility] Name: Theron Murrell Age: 68 yrs Sex: Male : 1955 Arrival Date: 04/30/2023 Time: 19:26 Bed 19 Private MD: Diagnosis: Chest pain, unspecified;Anxiety disorder, unspecified Presentation: 04/30 19:46 Chief complaint: Patient states: back pain, left side, around the shoulder blade, going rv to the left side of my chest. more of like a pressure. Coronavirus screen: At this time, the client does not indicate any symptoms associated with coronavirus-19. Ebola Screen: No symptoms or risks identified at this time. Initial Sepsis Screen: Does the patient meet any 2 criteria? No. Patient's initial sepsis screen is negative. Does the patient have a suspected source of infection? No. Patient's initial sepsis screen is negative. Risk Assessment: Do you want to hurt yourself or someone else? Patient reports no desire to harm self or others. Onset of symptoms was April 30, 2023. 19:46 Method Of Arrival: Ambulatory 19:46 Acuity: EDOUARD 2 rv Triage Assessment: 19:47 General: Appears uncomfortable, Behavior is anxious. Pain: Complains of pain in left rv scapular area Pain radiates to anterior aspect of left upper chest and left breast. Neuro: Level of Consciousness is awake, alert, obeys commands, Oriented to person, place, time, situation. Cardiovascular: Reports chest pain, Capillary refill < 3 seconds Patient's skin is warm and dry. Rhythm is regular. Respiratory: Airway is patent Respiratory effort is even, unlabored. Derm: Skin is intact. Historical: - Allergies: 19:47 Codeine; rv 19:47 Sulfa (Sulfonamide Antibiotics); rv - PMHx: 19:47 Bronchitis; Gout; Hypertensive disorder; Hypothyroidism; Kidney stones; Cerebrovascular rv accident; - Immunization history:: Adult Immunizations up to date. - Social history:: Smoking status: Patient denies any tobacco usage or history of. Screenin:48 [facility] ED Fall Risk Assessment (Adult) History of falling in the last 3 months, rv including since admission Yes- fall prone (multiple falls) (3 pts) Score/Fall Risk Level 3 or more points = High Risk Oriented to surroundings, Maintained a safe environment, Educated pt \T\ family on fall prevention, incl call for assistance when getting out of bed, Assessed \T\ reinforced patient's understanding of fall precautions, Provided non-skid footwear, Hourly rounding (assess needs \T\ fall precautionary measures) done, Used ambulatory aids as needed (educated on \T\ assisted with), Used gait belt as appropriate Implemented a Fall Risk Plan of Care, Apply high fall risk patient identification: yellow non skid footwear/ fall signage, Placed fall mat w/ non beveled edge next to bed, Activated bed/chair alarm, Remained w/in arm's length of patient and in sight while toileting, Offered frequent toileting (1:1 observation), Remained with patient while ambulating, Utilized family, sitter, or virtual hospitality director as indicated. Abuse screen: Denies threats or abuse. Denies injuries from another. Nutritional screening: No deficits noted. Tuberculosis screening: No symptoms or risk factors identified. Vital Signs: 19:46 BP 142 / 86; Pulse 77; Resp 17; Temp 97.6; Pulse Ox 100% ; Weight 115.67 kg; Height 5 rv ft. 11 in. ; 21:00 BP 127 / 90; Pulse 79; Resp 17; Pulse Ox 97% on R/A; rv 22:00 BP 132 / 91 (/pedi); Pulse 83; Resp 18; Pulse Ox 98% on R/A; rv 23:00 BP 130 / 91; Pulse 89; Resp 17; Pulse Ox 99% on R/A; rv 05/01 00:00 BP 138 / 75; Pulse 87; Resp 18; Pulse Ox 98% on R/A; rv 00:30 BP 138 / 86; Pulse 84; Resp 16; Temp 98; Pulse Ox 97% on R/A; rv 04/30 19:46 Body Mass Index 35.56 (115.67 kg, 180.34 cm) rv [place] Coma Score: 00:30 Eye Response: spontaneous(4). Motor Response: obeys commands(6). Verbal Response: rv oriented(5). Total: 15. ED Course: 04/30 19:28 Patient arrived in ED. mr 19:35 Juan Edward PA is PHCP. cp 19:35 Gus Cruz MD is Attending Physician. cp 19:46 Yehuda Wagner, RN is Primary Nurse. rv 19:47 Triage completed. rv 19:47 Arm band placed on right wrist. rv 19:48 Patient has correct armband on for positive identification. Client placed on continuous rv cardiac and pulse oximetry monitoring. NIBP monitoring applied. secured entrance monitor on. 19:48 No provider procedures requiring assistance completed. Patient maintains SpO2 rv saturation greater than 95% on room air. 20:52 XRAY Chest (1 view) In Process Unspecified. EDMS 21:24 CT Chest For PE Angio In Process Unspecified. EDMS 05/01 00:49 Provided Education on: d/c teaching. km8 00:49 IV discontinued, intact, bleeding controlled, No redness/swelling at site. Pressure km8 dressing applied. Administered Medications: 04/30 21:16 Drug: Aspirin PO Chewable Tablet 162 mg PO once Route: PO; rv 21:16 Drug: Ativan IVP 1 mg IVP once Route: IVP; Site: right forearm; rv Medication: 19:48 VIS not applicable for this client. rv Outcome: 05/01 00:26 Discharge ordered by . cp 00:49 Discharged to home via wheelchair, with significant other, km8 00:49 Condition: good 00:49 Discharge instructions given to patient, significant other, Instructed on discharge instructions, follow up and referral plans. medication usage, Demonstrated understanding of instructions, follow-up care, medications, Prescriptions given X 1, 00:50 Patient left the ED. rv Signatures: Dispatcher [employer] EDNY NeoAlina, Reg Reg mr Juan Edward PA PA cp Yehuda Wagner, RN RN rv Padmini Eagle RN RN km8
[2023-05-01 01:04] VITALS: BP 138/86; TEMP 98; O2SAT 97
--- NOTE | 2023-05-07 14:39 | EKG ---
Test Date: 2023-04-30 Test Time: 19:42:36 Transverse Abdominal Muscle Surgeon: RV MEASUREMENT RESULTS: Intervals: Rate: 77 VA: 158 QRSD: 98 QT: 360 QTc: 407 [place]: P: 58 VA: 158 QRS: -18 T: 55 INTERPRETIVE STATEMENTS: Normal sinus rhythm Normal ECG Compared to ECG 01/01/2020 09:23:54 No significant changes Electronically Signed On 05-07-23 14:19:30 PRE PLANNING ADVISOR by Sunny Ramachandran
== END 2023-05-01 00:50 | disposition home or self-care (01) ==
LOC: ER 19:26
DX: R07.89 Other chest pain (principal); F41.9 Anxiety disorder, unspecified; R06.02 Shortness of breath; I10 Essential (primary) hypertension; Z88.2 Allergy status to sulfonamides; Z88.5 Allergy status to narcotic agent; Z86.73 Personal history of transient ischemic attack (TIA), and cerebral infarction without residual deficits
CPT/HCPCS: 93005; 85025; 80048; 36415; 83735; 85610; 85379; 84484 ×2; 83880; 71275; 71045; 96374; 99285; Q9967